=== PATIENT | male | born 1950 | race Hispanic/Latino ===

== ENCOUNTER 2020-12-15 09:54 | Emergency (ER) | payer SELFPAY ==
[2020-12-15 12:44] LABS: Absolute Lymphocytes (CBC) 0.8 K/uL (0.7-4.9); Basophils % 0.5 % (0-1.3); Hematocrit 43.4 % (39.6-49.0); Lymphocytes % 7.4 % (15.3-44.8); RBC Red Blood Cell Count 4.77 M/uL (4.33-5.43)
[2020-12-15] MEDS ORDERED: NA CHLORIDE 0.9% 1,000 ML ONE ×2 (12:50→17:19)
[2020-12-15 13:11] LABS: Urine Blood TRACE (NEG); Urine Glucose 2+ (NEG); Urine Protein 2+ (NEG); Urine Specific Gravity 1.025 (1.005-1.030); Urine pH 6.5 (5.0-7.0)
[2020-12-15 13:18] LABS: ALT/SGPT 58 U/L (12-78); AST/SGOT 26 U/L (15-37); Alkaline Phosphatase 82 U/L (45-117); BUN Blood Urea Nitrogen 8 mg/dL (7-18); Bicarbonate 27 mmol/L (21-32); Bilirubin Direct 0.2 mg/dL (0-0.2); Bilirubin Total 0.7 mg/dL (0.2-1.0); Glucose Level 256 mg/dL (74-106); Lipase 6765 U/L (73-393); Potassium 3.4 mmol/L (3.5-5.1); Protein, Total 7.7 g/dL (6.4-8.2); Sodium Level 133 mmol/L (136-145)
--- NOTE | 2020-12-15 13:32 | RAD REPORT ---
EXAM DESCRIPTION: CTAbdomen Pelvis W Contrast - 12/15/2020 1:15 pm CLINICAL HISTORY: Abdominal pain. ABD PAIN COMPARISON: No comparisons TECHNIQUE: Biphasic CT imaging of the abdomen and pelvis was performed with 100 ml non-ionic IV cont rast. All CT scans are performed using dose optimization technique as appropriate and may include automated exposure control or mA/KV adjustment according to patient size. FINDINGS: The lung bases are clear. Mild diffuse fatty liver is present. Cholelithiasis. The spleen, adrenal glands are normal. Irregular cystic appearing mass is present in the tail of the pancreas. There is mild surrounding inflammatory changes. Overall, the mass measures 25 x 22 mm. Numerous sigmoid diverticula are present in the sigm oid colon with mild surrounding inflammation. No bowel obstruction, free air, free fluid or abscess. Small bilateral fat containing inguinal hernia s. The appendix is normal. No evidence of significant lymphadenopathy. No suspicious bony findings. IMPRESSION: Cystic mass measuring 25 x 22 mm is identified in the pancreatic tail with mild surrounding inflammat ion. Neoplasia versus pseudocyst is the primary differential. MR imaging of the abdomen with contrast would be recommended for followup. Correlation with amylase and lipase levels also suggested. Diffuse fatty liver. Cholelithiasis. Sigmoid diverticulosis coli is noted. Very early acute diverticulitis is a possibility.
[2020-12-15 13:42] LABS: Blood Morphology Comment NOT SEEN (NOT SEEN); Platelet Estimate ADEQ; White Blood Cell Scan OK (OK)
[2020-12-15 13:58] LABS: Urine Bacteria <20 /HPF (NONE SEEN); Urine RBC <5 /HPF (NONE SEEN)
--- NOTE | 2020-12-15 17:31 | RAD REPORT ---
EXAM DESCRIPTION: US - Abdomen Exam Limited - 12/15/2020 2:50 pm CLINICAL HISTORY: LUQ pain Abdominal pain COMPARISON: Chest Single View dated 08/07/2020; Chest Single View dated 11/10/2019; CHEST SINGLE VIEW dated 03/18/2015; CHEST SINGLE VIEW dated 03/06/2015No comparisons FINDINGS: The gallbladder demonstrates shadowing gallstone. No pericholecystic fluid or gallbladder wall thickening. The common bile duct is mildly prominent measuring 8 mm. The liver demonstrates no findings of intrahepatic biliary dilatation. IMPRESSION: Cholelithiasis is noted. Upper limit of normal common bile duct measuring 8 mm. MRCP followup assessment could be obtained cli nically indicated.
--- NOTE | 2020-12-15 17:57 | ER ---
Nurse's Notes [facility] Name: Jose Kitchen Age: 70 yrs Sex: Male : 1950 Arrival Date: 12/15/2020 Time: 09:56 Bed 5 Private MD: Diagnosis: Cholelithiasis;Acute pancreatitis Presentation: 12/15 10:04 Coronavirus screen: Client denies travel out of the [place] in the last 14 days. At this ll1 time, the client does not indicate any symptoms associated with coronavirus-19. Ebola Screen: Patient denies travel to an Ebola-affected area in the 21 days before illness onset. Initial Sepsis Screen: Does the patient meet any 2 criteria? No. Patient's initial sepsis screen is negative. Does the patient have a suspected source of infection? Yes: Acute abdominal pain. Risk Assessment: Do you want to hurt yourself or someone else? Patient reports no desire to harm self or others. Onset of symptoms was December 14, 2020. 10:04 Method Of Arrival: Ambulatory ll1 10:04 Acuity: DHRUV 3 ll1 10:06 Chief complaint: Patient states: L sided abd pain that wraps around to L back since ll1 last night. No fever or dysuria. No N/V/D. Historical: - Allergies: 10:04 PENICILLINS; ll1 - PMHx: 10:04 Diabetes - NIDDM; Hypertension; ll1 - Immunization history:: Flu vaccine is not up to date. - Social history:: Smoking status: Patient denies any tobacco usage or history of. Screenin:34 Abuse screen: Denies threats or abuse. Denies injuries from another. Nutritional bp screening: No deficits noted. Tuberculosis screening: No symptoms or risk factors identified. Fall Risk None identified. Assessment: 12:39 General: Appears in no apparent distress. comfortable, Behavior is calm, cooperative, ss Denies fever, feeling ill, fatigue, chills. Pain: Complains of pain in anterior aspect of left lateral abdomen and posterior aspect of left lateral abdomen Pain currently is 8 out of 10 on a pain scale. Pain began last night Is continuous. Neuro: Level of Consciousness is awake, alert, obeys commands, Oriented to person, place, time, situation, Speech is normal. Cardiovascular: Capillary refill < 3 seconds is brisk in bilateral fingers Patient's skin is warm and dry. Respiratory: Airway is patent Respiratory effort is even, unlabored, Respiratory pattern is regular, symmetrical. GI: Abdomen is non-distended, Bowel sounds present X 4 quads. Abd is soft and non tender X 4 quads. Patient currently denies diarrhea, nausea, vomiting. : No signs and/or symptoms were reported regarding the genitourinary system. Denies burning with urination, inability to void, urinary frequency. EENT: Nares are clear Oral mucosa is moist. Derm: Skin is intact, is healthy with good turgor, Skin is dry, Skin is pink, warm \\T\\ dry. normal. Musculoskeletal: Circulation, motion, and sensation intact. Range of motion: intact in all extremities, Swelling absent. 13:29 Reassessment: Patient appears in no apparent distress at this time. Patient and/or ss family updated on plan of care and expected duration. Pain level reassessed. Patient is alert, oriented x 3, equal unlabored respirations, skin warm/dry/pink. 15:40 Reassessment: Patient appears in no apparent distress at this time. Patient and/or ss family updated on plan of care and expected duration. Pain level reassessed. Patient is alert, oriented x 3, equal unlabored respirations, skin warm/dry/pink. Pain "is better" patient states. 16:07 Reassessment: Patient appears in no apparent distress at this time. No changes from bp previously documented assessment. Patient and/or family updated on plan of care and expected duration. Pain level reassessed. Patient is alert, oriented x 3, equal unlabored respirations, skin warm/dry/pink. ALL CURRENT ORDERS COMPLETED. DISPO PENDING. 17:53 Reassessment: Patient appears in no apparent distress at this time. Patient and/or ss family updated on plan of care and expected duration. Pain level reassessed. Patient is alert, oriented x 3, equal unlabored respirations, skin warm/dry/pink. LONG Finnegan at bedside discussing plan of care with patient. 18:01 Reassessment: provider at bedside at this time discussing poc and potential transfer. tw2 20:42 Reassessment: report given to SAMARIA Dozier of [facility]. mg2 Vital Signs: 10:04 BP 184 / 97; Pulse 76; Resp 17; Temp 97.7; Pulse Ox 95% ; Weight 72.57 kg; Height 5 ft. ll1 2 in. (157.48 cm); Pain 7/10; 13:00 BP 156 / 82; Pulse 70; Resp 17; Pulse Ox 100% ; bp 14:00 BP 146 / 83; Pulse 67; Resp 17; Pulse Ox 100% ; bp 16:00 BP 164 / 88; Pulse 67; Resp 17; Pulse Ox 96% ; bp 17:58 BP 147 / 69; Pulse 74; Resp 18; Pulse Ox 98% ; Pain 4/10; ss 19:06 BP 128 / 62; Pulse 80; Resp 18; Pulse Ox 100% on R/A; mg2 21:00 BP 142 / 72; Pulse 75; Resp 18; Pulse Ox 98% ; wh 10:04 Body Mass Index 29.26 (72.57 kg, 157.48 cm) ll1 ED Course: 09:56 Patient arrived in ED. mr 10:01 Arm band placed on. ll1 10:02 Patient notified of wait time. ll1 10:06 Triage completed. ll1 12:01 Kain Pitt NP is PHCP. pm1 12:01 Jeremy Ritchie MD is Attending Physician. pm1 12:34 Frederick Meyer, SAMARIA is Primary Nurse. bp 12:34 Patient has correct armband on for positive identification. Bed in low position. Call bp light in reach. Side rails up X2. 12:34 Inserted saline lock: 20 gauge in right forearm, using aseptic technique. Blood bp collected. 13:15 CT Abd/Pelvis - IV Contrast Only In Process Unspecified. EDMS 14:50 US Abdomen Limited In Process Unspecified. EDMS 16:45 Lipase Sent. bp 16:45 Hepatic Function Sent. bp 16:45 CBC with Diff Sent. bp 16:45 Basic Metabolic Panel Sent. bp 16:45 Urine Microscopic Only Sent. bp 16:45 Add On-Lab Sent. bp 17:57 No provider procedures requiring assistance completed. ss 18:06 initiated transfer to [facility]. bd 18:55 contacted by [facility] transfer center, no capacity at any of the [facility]. bd 19:05 Patient transferred, IV remains in place. mg2 19:10 Primary Nurse role handed off by Frederick Meyer, SAMARIA mw2 19:11 Ankush Palencia, RN is Primary Nurse. mg2 19:13 initiated a transfer with Sara Blackman from [facility]. mw2 19:35 doc to doc with the GI specialist from [facility]. mw2 20:07 administrative approval given by Sara Blackman/ patient has been accepted to [address] [place] [address] 2438/ Dr. Guevara has accepted the patient in transfer/ report to be called to [phone]. Administered Medications: 12:38 Drug: NS 0.9% 1000 ml Route: IV; Rate: 1000 ml; Site: right wrist; ss 19:12 Follow up: IV Status: Completed infusion mg2 17:11 Drug: NS 0.9% 1000 ml Route: IV; Rate: 125 ml/hr; Site: right antecubital; ss 17:57 Follow up: IV Status: Infusion continued upon transfer ss 18:05 Drug: Flagyl 500 mg Volume: 100 ml; Route: IVPB; Rate: 200 ml/hr; Infused Over: 30 ss mins; Site: right antecubital; 19:11 Follow up: Response: No adverse reaction; IV Status: Completed infusion mg2 18:05 Drug: Zofran (Ondansetron) 4 mg Route: IVP; Site: right antecubital; tw2 19:11 Follow up: Response: No adverse reaction mg2 18:08 Drug: morphine 4 mg {Note: RASS 0.} Route: IVP; Site: right antecubital; tw2 19:11 Follow up: Response: No adverse reaction mg2 19:11 Drug: LevaQUIN 500 mg Volume: 100 ml; Route: IVPB; Infused Over: 60 mins; Site: right mg2 forearm; 19:51 Follow up: Response: No adverse reaction; IV Status: Completed infusion mg2 Outcome: 17:56 ER care complete, transfer ordered by . pm1 17:57 Condition: good ss 17:57 Instructed on the need for transfer. 21:13 Transferred by ground EMS to [facility], Transfer form completed. X-rays sent w/ patient. Note: Report given to [facility] 21:13 Condition: stable 21:13 Instructed on the need for transfer. 21:14 Patient left the ED. Signatures: Dispatcher [employer] EDMS Alexandria Xiao, Lisandra Murray, RN RN ss Kain Pitt, FRENCH FOLDING MACHINE OPERATOR FRENCH FOLDING MACHINE OPERATOR pm1 Nilda Perla, RN RN tw2 Ethan Hastings, RN RN Frederick Meyer RN RN Dominick Haddad 2 Ankush Palencia, RN RN mg2 Rosemary Dunbar RN RN ll1 Corrections: (The following items were deleted from the chart) 11:52 11:52 Patient notified of wait time ll1 ll1
--- NOTE | 2020-12-15 17:57 | EDPHYS ---
Physician Documentation [facility] Name: Jose Kitchen Age: 70 yrs Sex: Male : 1950 Arrival Date: 12/15/2020 Time: 09:56 Bed 5 Private MD: ED Physician Jeremy Ritchie HPI: 12/15 12:16 This 70 yrs old Male presents to ER via Ambulatory with complaints of pm1 Abdominal Pain. 12:16 The patient presents with abdominal pain. Onset: The symptoms/episode began/occurred pm1 last night. The symptoms radiate to left back. Associated signs and symptoms: Pertinent negatives: nausea, vomiting, and diarrhea, chest pain, dysuria, fever, shortness of breath. Modifying factors: The symptoms are alleviated by nothing, the symptoms are aggravated by nothing. Severity of pain: in the emergency department the pain is actually worse is a 8 / 10. The patient has not experienced similar symptoms in the past. 12:16 The patient has not recently seen a physician, Primary care provider is Aleksandra Felton NP. Historical: - Allergies: 10:04 PENICILLINS; ll1 - PMHx: 10:04 Diabetes - NIDDM; Hypertension; ll1 - Immunization history:: Flu vaccine is not up to date. - Social history:: Smoking status: Patient denies any tobacco usage or history of. ROS: 12:16 Constitutional: Negative for fever, chills, and weight loss, Cardiovascular: Negative pm1 for chest pain, palpitations, and edema, Respiratory: Negative for shortness of breath, cough, wheezing, and pleuritic chest pain. 12:16 Back: Negative for injury and pain, MS/Extremity: Negative for injury and deformity, Skin: Negative for injury, rash, and discoloration, Neuro: Negative for headache, weakness, numbness, tingling, and seizure. 12:16 Abdomen/GI: Positive for abdominal pain, Negative for nausea, vomiting, and diarrhea. Exam: 12:16 Constitutional: This is a well developed, well nourished patient who is awake, alert, pm1 and in no acute distress. Head/Face: Normocephalic, atraumatic. 12:16 Back: No spinal tenderness. No costovertebral tenderness. Full range of motion. Skin: Warm, dry with normal turgor. Normal color with no rashes, no lesions, and no evidence of cellulitis. MS/ Extremity: Pulses equal, no cyanosis. Neurovascular intact. Full, normal range of motion. 12:16 Cardiovascular: Exam negative for acute changes, Rate: normal, Rhythm: regular, Pulses: no pulse deficits are appreciated. 12:16 Respiratory: Exam negative for acute changes, respiratory distress, shortness of breath. 12:16 Abdomen/GI: Inspection: obese Palpation: soft, in all quadrants, mild abdominal tenderness, in the epigastric area and left upper quadrant, rebound tenderness, is not appreciated. 12:16 Neuro: Exam negative for acute changes, Orientation: is normal, Mentation: is normal, Motor: is normal, moves all fours. Vital Signs: 10:04 BP 184 / 97; Pulse 76; Resp 17; Temp 97.7; Pulse Ox 95% ; Weight 72.57 kg; Height 5 ft. ll1 2 in. (157.48 cm); Pain 7/10; 13:00 BP 156 / 82; Pulse 70; Resp 17; Pulse Ox 100% ; bp 14:00 BP 146 / 83; Pulse 67; Resp 17; Pulse Ox 100% ; bp 16:00 BP 164 / 88; Pulse 67; Resp 17; Pulse Ox 96% ; bp 17:58 BP 147 / 69; Pulse 74; Resp 18; Pulse Ox 98% ; Pain 4/10; ss 19:06 BP 128 / 62; Pulse 80; Resp 18; Pulse Ox 100% on R/A; mg2 21:00 BP 142 / 72; Pulse 75; Resp 18; Pulse Ox 98% ; wh 10:04 Body Mass Index 29.26 (72.57 kg, 157.48 cm) ll1 MDM: 12:03 Patient medically screened. [facility] 12:10 Data reviewed: vital signs. Data interpreted: Pulse oximetry: on room air is 95 %. pm1 Interpretation: normal. 12:10 ED course: Patient refused pain medications even though he reports pain is 8/10. pm1 Informed him that we will reassess him and to please let us know if he changes his mind. We would be happy to address his pain. 13:38 Counseling: I had a detailed discussion with the patient and/or guardian regarding: the pm1 historical points, exam findings, and any diagnostic results supporting the discharge/admit diagnosis, lab results, radiology results. 16:56 ED course: Pending ultrasound results. Patient reports two beers and two shots of pm1 whiskey per day. 17:40 ED course: No prior history of gallstones or pancreatitis. pm1 17:55 Counseling: I had a detailed discussion with the patient and/or guardian regarding: the pm1 historical points, exam findings, and any diagnostic results supporting the discharge/admit diagnosis, lab results, radiology results, the need to transfer to another facility, [facility] does not immediately have the required specialist, No GI Coverage. 17:55 ED course: Patient continues to refuse pain medications in the ER. pm1 18:01 ED course: Patient would like pain medications now. pm1 18:59 ED course: Patient's preference for transfer, [facility] at capacity. Patient is pm1 willing to go to any facility that has availability. 12/15 12:10 Order name: Basic Metabolic Panel pm1 12/15 12:10 Order name: CBC with Diff pm1 12/15 12:10 Order name: Hepatic Function 1 12/15 12:10 Order name: Lipase pm1 12/15 12:10 Order name: Urine Microscopic Only pm1 12/15 12:11 Order name: Basic Metabolic Panel; Complete Time: 13:37 EDMS 12/15 12:11 Order name: CBC with Automated Diff; Complete Time: 13:43 EDMS 12/15 12:11 Order name: Liver (Hepatic) Function; Complete Time: 13:37 EDMS 12/15 12:11 Order name: Lipase; Complete Time: 13:37 EDMS 12/15 12:11 Order name: Urine Microscopic Only; Complete Time: 14:21 EDMS 12/15 12:48 Order name: CBC Smear Scan; Complete Time: 13:43 EDMS 12/15 12:49 Order name: Urine Dipstick--Ancillary (enter results) 12/15 13:31 Order name: CREATININE WHOLE BLOOD; Complete Time: 13:37 EDMS 12/15 13:43 Order name: Add On-Lab 12/15 12:10 Order name: IV Saline Lock; Complete Time: 12:38 pm1 12/15 12:10 Order name: Labs collected and sent; Complete Time: 12:38 pm1 12/15 12:10 Order name: Urine Dipstick-Ancillary (obtain specimen); Complete Time: 12:48 pm1 12/15 12:10 Order name: CT Abd/Pelvis - IV Contrast Only; Complete Time: 13:37 pm1 12/15 13:42 Order name: US Abdomen Limited; Complete Time: 17:40 pm1 12/15 13:55 Order name: Alcohol Serum/Plasma; Complete Time: 14:21 EDMS 12/15 16:57 Order name: COVID-19 : Document "Date of Symptom Onset" if Symptomatic. ss 12/15 16:59 Order name: NPO; Complete Time: 17:12 pm1 12/15 18:19 Order name: SARS-COV-2 RT PCR; Complete Time: 18:27 EDMS Administered Medications: 12:38 Drug: NS 0.9% 1000 ml Route: IV; Rate: 1000 ml; Site: right wrist; ss 19:12 Follow up: IV Status: Completed infusion mg2 17:11 Drug: NS 0.9% 1000 ml Route: IV; Rate: 125 ml/hr; Site: right antecubital; ss 17:57 Follow up: IV Status: Infusion continued upon transfer ss 18:05 Drug: Flagyl 500 mg Volume: 100 ml; Route: IVPB; Rate: 200 ml/hr; Infused Over: 30 ss mins; Site: right antecubital; 19:11 Follow up: Response: No adverse reaction; IV Status: Completed infusion mg2 18:05 Drug: Zofran (Ondansetron) 4 mg Route: IVP; Site: right antecubital; tw2 19:11 Follow up: Response: No adverse reaction mg2 18:08 Drug: morphine 4 mg {Note: RASS 0.} Route: IVP; Site: right antecubital; tw2 19:11 Follow up: Response: No adverse reaction mg2 19:11 Drug: LevaQUIN 500 mg Volume: 100 ml; Route: IVPB; Infused Over: 60 mins; Site: right mg2 forearm; 19:51 Follow up: Response: No adverse reaction; IV Status: Completed infusion mg2 Disposition: 12/16 06:43 Co-signature as Attending Physician, Jeremy Ritchie MD I agree with the assessment and yohan plan of care. Disposition: 12/15/20 17:56 Transfer ordered to [facility]. Diagnosis are Acute pancreatitis, Cholelithiasis. - Reason for transfer: Specialty. - Accepting physician is Ismael. - Condition is Stable. - Problem is new. - Symptoms have improved. Signatures: Dispatcher [employer] EDOK Jeremy Ritchie MD MD cha Smirch, Shelby, RN RN ss Kain Pitt, LONG TEAM LEADER pm1 Nilda Perla, RN RN tw2 Ethan Hastings, SAMARIA MERA Ankush Palencia, RN RN [facility] Rosemary Dunbar RN RN ll1 Corrections: (The following items were deleted from the chart) 03 17:37 16:58 CORONAVIRUS ordered. EDOK EDMS 19:58 17:56 12/15/2020 17:56 Transfer ordered to [facility]. Diagnosis is Acute pm1 pancreatitisCholelithiasis. Reason for transfer: Higher level of care. Accepting physician is [facility]. Condition is Stable. Problem is new. Symptoms have improved. pm1 21:14 19:58 12/15/2020 17:56 Transfer ordered to [facility]. Diagnosis is Acute pancreatitisCholelithiasis. Reason for transfer: Specialty. Accepting physician is Ismael. Condition is Stable. Problem is new. Symptoms have improved. pm1
[2020-12-15] MEDS ORDERED: Levofloxacin500mg IV 500 MG/100 ML BAG IV ONE (18:19)
[2020-12-15] MEDS ORDERED: METRONIDAZOLE 500mg IVPB 500 MG/100 ML BAG IV ONE (18:19)
[2020-12-15] MEDS ORDERED: MORPHINE 4 MG/ML SYR ONE (18:22)
[2020-12-15] MEDS ORDERED: ONDANSETRON 4 MG/2 ML VIAL ONE (18:22)
[2020-12-15 21:20] VITALS: TEMP 97.7
[2020-12-15 21:27] VITALS: BP 142/72; O2SAT 98
== END 2020-12-15 21:14 | disposition short-term general hospital (02) ==
LOC: ER 09:54
DX: K85.90 Acute pancreatitis without necrosis or infection, unspecified (principal); K80.20 Calculus of gallbladder without cholecystitis without obstruction; Z20.822 Contact with and (suspected) exposure to COVID-19; I10 Essential (primary) hypertension; Z88.0 Allergy status to penicillin
CPT/HCPCS: 36415; 74177; 76705; 80048; 80076; 80320; 81003; 81015; 82565; 83690; 85025; 99285; J2405; J7030; Q9967; U0003

== ENCOUNTER 2021-02-06 02:18 | Emergency (ER) | payer SELFPAY ==
--- OUTSIDE RECORDS SUMMARY | 2021-02-06 02:22 | XMS REPORT | Continuity of Care Document ---
:1950 Author Organization [facility] t Address [address] [place] [address] Care Team Providers Name Role Phone [place] FUENTES Attending Clinician JESÚS Attending Clinician Unavailable NESS HWANG Admitting Clinician Unavailable Problems This patient has no known problems. Allergies, Adverse Reactions, Alerts This patient has no known allergies or adverse reactions. Medications This patient has no known medications. Procedures This patient has no known procedures. Encounters Start End Encounter Admission Attending Care Care Encounter Source Date/Time Date/Time Type Type Clinicians Facility Department ID 2021-01-05 2021-01-05 Office JOSEY Niño [id number] 09:18:57 09:48:57 Visit Salmaan AMBULATOR [id number] Y [id number] Results Test Description Test Time Test Comments Results Result [facility] e Comments FINE NEEDLE 2020-12-25 Medical Cytology Report ASPIRATION BY 15:36:00 CLINICIAN Case: [id number] Authorizing Provider: Viry Alexander Collected: 12/19/2020 11:25 AM MD Lucille Ordering Location: [address] Received: 12/21/2020 02:50 PM Service Pathologist: Yelena France MD Specimen: Pancreas, pancreatic cyst wall PANCREAS, CYST WALL, FNA BY CLINICIAN (CYTOSPINS AND CELL BLOCK OF ASPIRATE): - A STRIP OF COLUMNAR EPITHELIUM WITH ATYPIA, FAVOR LOW GRADE DYSPLASIA (SEE COMMENT) Signing Pathologist Direct Phone Line: [phone] y signed by Yelena France MD on 12/25/2020 at 3:36 PMThe material available for review is scant. The cell block shows one strip of columnar epithelium with atypia and multiple strips with gastric foveolar type of lining. Some proteinaceous debris is seen in the cytospins. Mucicarmine stains some material suggestive of extracellular mucin. The overall features may be suggestive of mucinous neoplasm in an appropriate clinical setting. Clinical and radiologic correlation is recommended.93650, 83162; 04232Eekszkordj cyst wall FNA PANCREAS, CYST WALL, FNAReceived 15 ml cytorich red fixative sample; prepared cell block(A2) and 4 cytospins Performed. The interpretation of this case included the use of immunohistochemistry or special stains.mucicarmineControl Slides Examined: In-house known positive controls were evaluated along with the test tissue. These control slides run alongside of the patients sample show appropriate staining. Internal positive and negative controls when available are evaluated Immunohistochemistry technical testing was performed at [facility], Pathology Laboratory where it was developed and its performance characteristics were determined. It has not been cleared or approved by the U.S. Food and Drug Administration. The FDA has determined that such clearance or approval is not necessary. The test is used for clinical purposes. It should not be regarded as investigational or for research. This laboratory is certified under the Clinical Laboratory Improvement Amendments of 1988 (CLIA-88) as qualified to perform high complexity clinical laboratory testing.[facility], Department of Pathology, [address] [place] [address], [facility], [facility] of [facility], [address] [place] [address], [facility]Robert [facility], Department of Pathology, [address] [place] [address], FINE NEEDLE ASPIRATE (FNA) REQUEST 2020-12-21 16:01:00 Test Item Value Reference Range Interpretation Comme nts CYTOLOGY RESULT POINTER (BEAKER) (test code = 2629) See Separate Re port POCT-GLUCOSE [id number] 08:14:00 Test Item Value Reference Range Interpretation Comments POC-GLUCOSE METER 174 mg/dL 70-110 H : TESTED A T [facility] 6720 (BEAKER) (test code = JEANETH Martinez [place], 1538) [address]: Financial Developer/Techni prabha ID = [id number] for JIMMY BLAKE COMPREHENSIVE METABOLIC [id number] 03:19:00 Test Item Value Reference Range Interpretation Comments TOTAL PROTEIN 6.9 gm/dL 6.0-8.3 (BEAKER) (test code = 770) ALBUMIN (BEAKER) 4.0 g/dL 3.5-5.0 (test code = 1145) ALKALINE PHOSPHATASE 50 U/L 40-150 (BEAKER) (test code = 346) BILIRUBIN TOTAL 0.6 mg/dL 0.2-1.2 (BEAKER) (test code = 377) SODIUM (BEAKER) (test 138 meq/L 136-145 code = 381) POTASSIUM (BEAKER) 3.6 meq/L 3.5-5.1 (test code = 379) CHLORIDE (BEAKER) 104 meq/L 98-107 (test code = 382) CO2 (BEAKER) (test 24 meq/L 22-29 code = 355) BLOOD UREA NITROGEN 7 mg/dL 7-21 (BEAKER) (test code = 354) CREATININE (BEAKER) 0.91 mg/dL 0.57-1.25 (test code = 358) GLUCOSE RANDOM 200 mg/dL 70-105 H (BEAKER) (test code = 652) CALCIUM (BEAKER) 9.1 mg/dL 8.4-10.2 (test code = 697) AST (SGOT) (BEAKER) 81 U/L 5-34 H (test code = 353) ALT (SGPT) (BEAKER) 79 U/L 6-55 H (test code = 347) EGFR (BEAKER) (test 83 mL/min/1.73 ESTIMA TIBURCIO GFR IS code = 1092) sq m NOT ACCURATE CREATININE CLEARANCE IN PREDICTING GLOMERULAR FILTRATION RATE . ESTIMATED GFR I S NOT APPLICABLE FOR DIALYSIS PATIEN TS. Financial Developer ID - RAKESH MPOCT-GLUCOSE [id number] 22:13:00 Test Item Value Reference Range Interpretation Comments POC-GLUCOSE METER 259 mg/dL 70-110 H : TESTED A T [facility] 6720 (BEAKER) (test code = [facility], 153) [address]: Financial Developer/Techni prabha ID = [id number] for EV KARINE RIDDLE POCT-GLUCOSE [id number] 17:23:00 Test Item Value Reference Range Interpretation Comments POC-GLUCOSE METER 267 mg/dL 70-110 H : TESTED A T [facility] 6720 ([facility]) (test code = [facility], 153) [address]: Financial Developer/Techni prabha ID = [id number] for IB RAHIM, SERKALEM POCT-GLUCOSE [id number] 12:32:00 Test Item Value Reference Range Interpretation Comments POC-GLUCOSE METER 201 mg/dL 70-110 H : Notified RN/MD: ([facility]) (test code = TESTED AT [place] [address] 153) [facility], [address]: Financial Developer/Techni prabha ID = [id number] for Si mmons, Jeanine POCT-GLUCOSE [id number] 07:47:00 Test Item Value Reference Range Interpretation Comments POC-GLUCOSE METER 210 mg/dL 70-110 H : TESTED A [facility] 6720 ([facility]) (test code = [facility], 153) [address]: Financial Developer/Techni prabha ID = [id number] for IB RAHIM, SERKALEM COMPREHENSIVE METABOLIC [id number] 04:56:00 Test Item Value Reference Range Interpretation Comments TOTAL PROTEIN 6.5 gm/dL 6.0-8.3 Specimen moder ately (BEAKER) (test code = hemoly zed 770) ALBUMIN (BEAKER) 3.6 g/dL 3.5-5.0 Specimen mo derately (test code = 1145) hemolyzed ALKALINE PHOSPHATASE 50 U/L 40-150 (BEAKER) (test code = 346) BILIRUBIN TOTAL 0.5 mg/dL 0.2-1.2 Specimen mod erately (BEAKER) (test code = hemoly zed 377) SODIUM (BEAKER) (test 138 meq/L 136-145 code = 381) POTASSIUM (BEAKER) 4.0 meq/L 3.5-5.1 Specimen moderately (test code = 379) hemolyzed CHLORIDE (BEAKER) 104 meq/L 98-107 (test code = 382) CO2 (BEAKER) (test 24 meq/L 22-29 code = 355) BLOOD UREA NITROGEN 9 mg/dL 7-21 (BEAKER) (test code = 354) CREATININE (BEAKER) 0.88 mg/dL 0.57-1.25 Specimen moderately (test code = 358) hemolyzed GLUCOSE RANDOM 176 mg/dL 70-105 H (BEAKER) (test code = 652) CALCIUM (BEAKER) 8.8 mg/dL 8.4-10.2 (test code = 697) AST (SGOT) (BEAKER) 71 U/L 5-34 H Specimen moderately (test code = 353) hemolyzed ALT (SGPT) (BEAKER) 50 U/L 6-55 Specimen moderately (test code = 347) hemolyzed EGFR (BEAKER) (test 86 mL/min/1.73 ESTIMA TIBURCIO GFR IS code = 1092) sq m NOT ACCURATE CREATININE CLEARANCE IN PREDICTING GLOMERULAR FILTRATION RATE . ESTIMATED GFR I S NOT APPLICABLE FOR DIALYSIS PATIEN TS. Financial Developer ID - DBPOCT-GLUCOSE [id number] 22:00:00 Test Item Value Reference Range Interpretation Comments POC-GLUCOSE METER 159 mg/dL 70-110 H : TESTED A T [facility] 6720 ([facility]) (test code = [facility], 1538) [address]: Financial Developer/Techni prabha ID = [id number] for FAHEEM POOLE POCT-GLUCOSE [id number] 17:49:00 Test Item Value Reference Range Interpretation Comments POC-GLUCOSE METER 282 mg/dL 70-110 H : TESTED A T [facility] 6720 ([employer]) (test code = [facility], 1538) [address]: Financial Developer/Techni prabha ID = [id number] for Ra mirez, Kanwal POCT-GLUCOSE [id number] 11:55:00 Test Item Value Reference Range Interpretation Comments POC-GLUCOSE METER 326 mg/dL 70-110 H : TESTED A T [facility] 6720 ([employer]) (test code = [facility], 153) [address]: Financial Developer/Techni prabha ID = [id number] for Ra mirez, Kanwal POCT-GLUCOSE [id number] 08:51:00 Test Item Value Reference Range Interpretation Comments POC-GLUCOSE METER 173 mg/dL 70-110 H : TESTED A T [facility] 6720 ([facility]) (test code = [facility] Michelle [facility], 153) [address]: Financial Developer/Techni prabha ID = [id number] for Kanwal Hickman POCT-GLUCOSE [id number] 23:50:00 Test Item Value Reference Range Interpretation Comments POC-GLUCOSE METER 346 mg/dL 70-110 H : TESTED A T [facility] 6720 ([facility]) (test code = [facility] Michelle [facility], 1538) [address]: Financial Developer/Techni prabha ID = [id number] for KARINE DOW POCT-GLUCOSE [id number] 17:45:00 Test Item Value Reference Range Interpretation Comments POC-GLUCOSE METER 208 mg/dL 70-110 H : Notified RN/MD: ([facility]) (test code = TESTED AT [facility] 6720 1538) [facility], [address]: Financial Developer/Techni prabha ID = [id number] for Nalini Bonilla MR, ABDOMEN, [id number] 17:00:00Unlisted Reason for Exam - Click Yes and Enter Reason Below->YesUnlisted Reason for Exam->acute pancreatitis, rule out choledocholithiasis, evaluate pancreatic tail cystDeos the patient have an implanted electronic device?->No [facility] : 1950 Sex: MFINAL REPORT TECHNIQUE: MRI of the abdomen and MRCP WITHOUT and WITH intravenous contrast. 3-D volume reconstructions were obtained to evaluate the biliary ductal system. INDICATION: 70-year-old man with epigastric pain and acute pancreatitis. COMPARISON: None. FINDINGS: LOWER THORAX: Unremarkable. LIVER: Severe decrease in signal intensity of the liver onopposed phase imaging, consistent with hepatic steatosis. Focal fatty sparing in segment IVB adjacent to the gallbladder fossa. BILIARY: Subcentimeter stones in the otherwise unremarkable gallbladder. Common bile duct is borderline prominent and measures up to 0.8 cm in diameter without filling defect. No intrahepatic biliary ductal prominence.SPLEEN: No splenomegaly.PANCREAS: Pancreas enhances homogeneously. Mild edema around the pancreatic tail extends along the left anterior renal fascia. 2.2 x 3x 3.3 cm cystic lesion in the pancreatic tail contains thin internal septations and likely communicates with the pancreatic duct; no mural nodules or wall thickening in the cystic lesion. ADRENALS: No adrenal nodule.KIDNEYS/URETERS: No hydronephrosis or mass. 1.4 x 1.5 cm cyst in the left upper pole. Subcentimeter cyst in the right interpolar region. PERITONEUM/RETROPERITONEUM: No free fluid.LYMPH NODES: No lymphadenopathy.VESSELS: Unremarkable. GI TRACT: Susceptibility artifact in the anterior abdomen adjacent to the distal gastric body. No distention or wall thickening. Normal appendix. BONES ANDSOFT TISSUES: Unremarkable. IMPRESSION:Mild edema around the pancreatic tail, suspicious for acute in terstitial edematous pancreatitis. 3.3 cm septated cystic lesion in the pancreatic tail. Differential considerations include side branch intraductal papillary mucinous neoplasm (IPMN) and pseudocyst. Endoscopic ultrasound/fine- needle aspiration may be obtained for further evaluation. Alternatively, follow- up abdomen MRI/MRCP may be obtained in 6 months for reassessment. Nonspecific borderline prominence of the common bile duct without choledocholithiasis. Cholelithiasis. Severe hepatic steatosis. Signed: Jared Freeman MDReport Verified Date/Time: 12/17/2020 17:00:30 POCT-GLUCOSE [id number] 11:57:00 Test Item Value Reference Range Interpretation Comments POC-GLUCOSE METER 270 mg/dL 70-110 H : Notified RN/: ([facility]) (test code = TESTED AT [facility] 6720 1538) [facility], [address]: Financial Developer/Techni prabha ID = [id number] for Nalini Bonilla BASIC METABOLIC [id number] 06:53:00 Test Item Value Reference Range Interpretation Comments SODIUM (BEAKER) 139 meq/L 136-145 (test code = 381) POTASSIUM (BEAKER) 3.8 meq/L 3.5-5.1 (test code = 379) CHLORIDE (BEAKER) 105 meq/L 98-107 (test code = 382) CO2 (BEAKER) (test 27 meq/L 22-29 code = 355) BLOOD UREA NITROGEN 6 mg/dL 7-21 L (BEAKER) (test code = 354) CREATININE (BEAKER) 0.83 mg/dL 0.57-1.25 (test code = 358) GLUCOSE RANDOM 154 mg/dL 70-105 H (BEAKER) (test code = 652) CALCIUM (BEAKER) 8.3 mg/dL 8.4-10.2 L (test code = 697) EGFR (BEAKER) (test 92 mL/min/1.73 ESTIMA TIBURCIO GFR IS code = 1092) sq m NOT ACCURATE CREATININE CLEARANCE IN PREDICTING GLOMERULAR FILTRATION RATE . ESTIMATED GFR I S NOT APPLICABLE FOR DIALYSIS PATIEN TS. Financial Developer ID - [id number] 06:53:00 Test Item Value Reference Range Interpretation Comments MAGNESIUM (BEAKER) (test code = 1.8 mg/dL 1.6-2.6 627) Financial Developer ID - [id number] 06:53:00 Test Item Value Reference Range Interpretation Comments PHOSPHORUS (BEAKER) (test code = 3.0 mg/dL 2.3-4.7 604) Financial Developer ID - BSHEPATIC FUNCTION [id number] 06:53:00 Test Item Value Reference Range Interpretation Comments TOTAL PROTEIN (BEAKER) (test code = 6.0 gm/dL 6.0-8.3 770) ALBUMIN (BEAKER) (test code = 1145) 3.5 g/dL 3.5-5.0 BILIRUBIN TOTAL (BEAKER) (test code 0.6 mg/dL 0.2-1.2 = 377) BILIRUBIN DIRECT (BEAKER) (test 0.3 mg/dL 0.1-0.5 code = 706) ALKALINE PHOSPHATASE (BEAKER) (test 43 U/L 40-150 code = 346) AST (SGOT) (BEAKER) (test code = 18 U/L 5-34 353) ALT (SGPT) (BEAKER) (test code = 24 U/L 6-55 347) Financial Developer ID - BSCBC W/PLT COUNT & AUTO [id number] 06:27:00 Test Item Value Reference Range Interpretation Comments WHITE BLOOD CELL COUNT (BEAKER) 4.9 K/ L 3.5-10.5 (test code = 775) RED BLOOD CELL COUNT (BEAKER) 4.40 M/ L 4.63-6.08 L (test code = 761) HEMOGLOBIN (BEAKER) (test code = 14.0 GM/DL 13.7-17.5 410) HEMATOCRIT (BEAKER) (test code = 39.4 % 40.1-51.0 L 411) MEAN CORPUSCULAR VOLUME (BEAKER) 89.5 fL 79.0-92.2 (test code = 753) MEAN CORPUSCULAR HEMOGLOBIN 31.8 pg 25.7-32.2 (BEAKER) (test code = 751) MEAN CORPUSCULAR HEMOGLOBIN CONC 35.5 GM/DL 32.3-36.5 (BEAKER) (test code = 752) RED CELL DISTRIBUTION WIDTH 11.6 % 11.6-14.4 (BEAKER) (test code = 412) PLATELET COUNT (BEAKER) (test 163 K/CU MM 150-450 code = 756) MEAN PLATELET VOLUME (BEAKER) 10.2 fL 9.4-12.4 (test code = 754) NUCLEATED RED BLOOD CELLS 0 /100 WBC 0-0 (BEAKER) (test code = 413) NEUTROPHILS RELATIVE PERCENT 66 % (BEAKER) (test code = 429) LYMPHOCYTES RELATIVE PERCENT 23 % (BEAKER) (test code = 430) MONOCYTES RELATIVE PERCENT 8 % (BEAKER) (test code = 431) EOSINOPHILS RELATIVE PERCENT 2 % (BEAKER) (test code = 432) BASOPHILS RELATIVE PERCENT 0 % (BEAKER) (test code = 437) NEUTROPHILS ABSOLUTE COUNT 3.24 K/ L 1.78-5.38 (BEAKER) (test code = 670) LYMPHOCYTES ABSOLUTE COUNT 1.13 K/ L 1.32-3.57 L (BEAKER) (test code = 414) MONOCYTES ABSOLUTE COUNT (BEAKER) 0.40 K/ L 0.30-0.82 (test code = 415) EOSINOPHILS ABSOLUTE COUNT 0.11 K/ L 0.04-0.54 (AKER) (test code = 416) BASOPHILS ABSOLUTE COUNT ([facility]) 0.02 K/ L 0.01-0.08 (test code = 417) IMMATURE GRANULOCYTES-RELATIVE 0 % 0-1 PERCENT ([facility]) (test code = 2801) POCT-GLUCOSE [id number] 21:40:00 Test Item Value Reference Range Interpretation Comments POC-GLUCOSE METER 167 mg/dL 70-110 H : TESTED A T [facility] 6720 ([facility]) (test code = [facility], 1538) [address]: Financial Developer/Techni prabha ID = [id number] for EV ANS, KARINE POCT-GLUCOSE [id number] 17:25:00 Test Item Value Reference Range Interpretation Comments POC-GLUCOSE METER 170 mg/dL 70-110 H : TESTED A T [facility] 6720 ([facility]) (test code = [facility], 1538) [address]: Financial Developer/Techni prabha ID = [id number] for Co neil, Nalini POCT-GLUCOSE [id number] 11:43:00 Test Item Value Reference Range Interpretation Comments POC-GLUCOSE METER 194 mg/dL 70-110 H : Notified RN/MD: ([facility]) (test code = TESTED AT [place] [address] 1538) [facility], [address]: Financial Developer/Techni prabha ID = [id number] for Co neil, Nalini SARS-COV2/RT-PCR ([facility])2020-12-16 10:31:00 Test Item Value Reference Range Interpretation Comments SARS-COV2/RT-PCR (test Negative Not Detected, Negative, code = 4932231) See external report for linked test SARS-COV-2 PERFORMING LAB [facility] KERA (test code = 0321837) Negative result for this test determines that SARS-CoV-2 RNA was not present in the specimen above the Limit of Detection (LOD). However, Negative results do not preclude SARS-CoV-2 infection and should not be used as the sole basis for treatment or patient management decisions. Negative results mustbe combined with clinical observations, patient history, and epidemiological information. A false negative result may occur if a specimen is improperly collected, transported or handled. A false negative result should be considered if patient's recent exposures or clinical presentation indicate that COVID-19 (SARS-CoV-2) is likely and diagnostic tests for other causes of illness are negative. Re-testing should be considered in cases of suspected false negatives.The limit of detection for this assay is 800 copies/mL.This SARS CoV-2 test is a real-time RT-PCR test intended for the qualitative detection of nucleic acid from SARS-CoV-2 in a nasopharyngeal swab specimen collected from individuals susp ected of COVID-19 by their healthcare provider.This test has not been Food and Drug Administration (FDA) cleared or approved. This is a modified version of an approved Emergency Use Authorization (EUA) and is in the process of review by the FDA. Once authorized by the FDA, the issued EUA will be effective until the declaration that circumstances exist justifying the authorization of the emergency use of in vitro diagnostic tests for detection and/or diagnosis of COVID-19 is terminated under Section 564(b)(2) of the Act or the EUA is revoked under Section 564(g) of the Act.Fact Sheet for Healthcare Providers:https://www.[employer]/sites/default/files/product/documents/Fact_Shee z_YN_Gbnsobglj_Vjen_MBRM-YuC-1.pdfFact Sheet for Healthcare Patients:https://www.[employer]/sites/default/files/product/ documents/Lbvm_Ysxcl_Aohrobpt_Kpme_ISSC-XwG-5.pdfPerforming Laboratory:[place] [address], [place] [address]LPULEGXYJK A1C 2020-12-16 08:19:00 Test Item Value Reference Range Interpretation Comments HEMOGLOBIN A1C ([facility]) (test code = 8.3 % 4.3-6.1 H 368) POCT-GLUCOSE [id number] 07:56:00 Test Item Value Reference Range Interpretation Comments POC-GLUCOSE METER 178 mg/dL 70-110 H : Notified RN/MD: ([facility]) (test code = TESTED AT [facility] 6720 1538) [facility], [address]: Financial Developer/Techni prabha ID = [id number] for Nalini Bonilla LACTATE DEHYDROGENASE ([facility])2020-12-16 04:24:00 Test Item Value Reference Range Interpretation Comments LACTATE DEHYDROGENASE 283 U/L 125-220 H Specim en slightly (BEAKER) (test code = hemoly zed 635) Financial Developer ID - [id number] 04:23:00 Test Item Value Reference Range Interpretation Comments MAGNESIUM (BEAKER) 1.4 mg/dL 1.6-2.6 L Specimen slightly (test code = 627) hemolyzed Financial Developer ID - [id number] 04:23:00 Test Item Value Reference Range Interpretation Comments PHOSPHORUS (BEAKER) 2.4 mg/dL 2.3-4.7 Specimen slightly (test code = 604) hemolyzed Financial Developer ID - ADMINCOMPREHENSIVE METABOLIC [id number] 04:23:00 Test Item Value Reference Range Interpretation Comments TOTAL PROTEIN 6.4 gm/dL 6.0-8.3 Specimen sligh tly (BEAKER) (test code = hemoly zed 770) ALBUMIN (BEAKER) 3.7 g/dL 3.5-5.0 Specimen sl ightly (test code = 1145) hemolyzed ALKALINE PHOSPHATASE 49 U/L 40-150 (BEAKER) (test code = 346) BILIRUBIN TOTAL 0.7 mg/dL 0.2-1.2 Specimen sli ghtly (BEAKER) (test code = hemoly zed 377) SODIUM (BEAKER) (test 136 meq/L 136-145 code = 381) POTASSIUM (BEAKER) 3.3 meq/L 3.5-5.1 L Specimen slightly (test code = 379) hemolyzed CHLORIDE (BEAKER) 101 meq/L 98-107 (test code = 382) CO2 (BEAKER) (test 25 meq/L 22-29 code = 355) BLOOD UREA NITROGEN 7 mg/dL 7-21 (BEAKER) (test code = 354) CREATININE (BEAKER) 0.80 mg/dL 0.57-1.25 Specimen slightly (test code = 358) hemolyzed GLUCOSE RANDOM 239 mg/dL 70-105 H (BEAKER) (test code = 652) CALCIUM (BEAKER) 8.1 mg/dL 8.4-10.2 L (test code = 697) AST (SGOT) (BEAKER) 22 U/L 5-34 Specimen slightly (test code = 353) hemolyzed ALT (SGPT) (BEAKER) 34 U/L 6-55 Specimen slightly (test code = 347) hemolyzed EGFR (BEAKER) (test 96 mL/min/1.73 ESTIMA TIBURCIO GFR IS code = 1092) sq m NOT ACCURATE CREATININE CLEARANCE IN PREDICTING GLOMERULAR FILTRATION RATE . ESTIMATED GFR I S NOT APPLICABLE FOR DIALYSIS PATIEN TS. Financial Developer ID - ADMINLIPID [id number] 04:23:00 Test Item Value Reference Range Interpretation Comments TRIGLYCERIDES (BEAKER) 102 mg/dL Speci men slightly (test code = 540) hemolyzed CHOLESTEROL (BEAKER) 162 mg/dL Specime n slightly (test code = 631) hemolyzed HDL CHOLESTEROL (BEAKER) 53 mg/dL (test code = 976) LDL CHOLESTEROL 89 mg/dL CALCULATED (BEAKER) (test code = 633) Triglyceride Reference Range: Low Risk <150 Borderline 150-199 High Risk 200-499 Very High Risk >=500Cholesterol Reference Range: Low Risk <200 Borderline 200-239 High Risk >240HDL Cholesterol Reference Range: Low Risk >=60 High Risk <40LDL Cholesterol Reference Range: Optimal <100 Near Optimal 100-129 Borderline 130-159 High 160-189 Very High >=190 Financial Developer ID - ADMINLACTIC ACID, [id number] 04:15:00 Test Item Value Reference Range Interpretation Comments LACTATE BLOOD VENOUS 1.17 mmol/L 0.50-2.20 Specime n moderately (2) (BEAKER) (test hemolyzed code = 2872) Financial Developer ID - ADMINPOCT-GLUCOSE [id number] 04:06:00 Test Item Value Reference Range Interpretation Comments POC-GLUCOSE METER 236 mg/dL 70-110 H : TESTED A T [facility] 6720 (BEAKER) (test code = [place], 1538) [address]: Financial Developer/Techni prabha ID = [id number] for FLAVIO DE JESUS CBC W/PLT COUNT & AUTO [id number] 04:01:00 Test Item Value Reference Range Interpretation Comments WHITE BLOOD CELL COUNT (BEAKER) 7.1 K/ L 3.5-10.5 (test code = 775) RED BLOOD CELL COUNT (BEAKER) 4.58 M/ L 4.63-6.08 L (test code = 761) HEMOGLOBIN (BEAKER) (test code = 14.6 GM/DL 13.7-17.5 410) HEMATOCRIT (BEAKER) (test code = 40.0 % 40.1-51.0 L 411) MEAN CORPUSCULAR VOLUME (BEAKER) 87.3 fL 79.0-92.2 (test code = 753) MEAN CORPUSCULAR HEMOGLOBIN 31.9 pg 25.7-32.2 (BEAKER) (test code = 751) MEAN CORPUSCULAR HEMOGLOBIN CONC 36.5 GM/DL 32.3-36.5 (BEAKER) (test code = 752) RED CELL DISTRIBUTION WIDTH 11.5 % 11.6-14.4 L (BEAKER) (test code = 412) PLATELET COUNT (BEAKER) (test 186 K/CU MM 150-450 code = 756) MEAN PLATELET VOLUME (BEAKER) 10.2 fL 9.4-12.4 (test code = 754) NUCLEATED RED BLOOD CELLS 0 /100 WBC 0-0 (BEAKER) (test code = 413) NEUTROPHILS RELATIVE PERCENT 74 % (BEAKER) (test code = 429) LYMPHOCYTES RELATIVE PERCENT 17 % (BEAKER) (test code = 430) MONOCYTES RELATIVE PERCENT 8 % (BEAKER) (test code = 431) EOSINOPHILS RELATIVE PERCENT 1 % (BEAKER) (test code = 432) BASOPHILS RELATIVE PERCENT 0 % (BEAKER) (test code = 437) NEUTROPHILS ABSOLUTE COUNT 5.29 K/ L 1.78-5.38 (BEAKER) (test code = 670) LYMPHOCYTES ABSOLUTE COUNT 1.21 K/ L 1.32-3.57 L (BEAKER) (test code = 414) MONOCYTES ABSOLUTE COUNT (BEAKER) 0.54 K/ L 0.30-0.82 (test code = 415) EOSINOPHILS ABSOLUTE COUNT 0.05 K/ L 0.04-0.54 (BEAKER) (test code = 416) BASOPHILS ABSOLUTE COUNT (BEAKER) 0.02 K/ L 0.01-0.08 (test code = 417) IMMATURE GRANULOCYTES-RELATIVE 0 % 0-1 PERCENT (BEAKER) (test code = 9051)
[2021-02-06 03:48] LABS: Absolute Lymphocytes (CBC) 1.1 K/uL (0.7-4.9); Basophils % 0.3 % (0-1.3); Hematocrit 40.2 % (39.6-49.0); Lymphocytes % 11.9 % (15.3-44.8); MPV 9.7 fL (7.6-11.3); RBC Red Blood Cell Count 4.49 M/uL (4.33-5.43)
[2021-02-06] MEDS ORDERED: MORPHINE 4 MG/ML SYR ONE ×3 (03:51→12:25)
[2021-02-06] MEDS ORDERED: ONDANSETRON 4 MG/2 ML VIAL ONE ×2 (03:52→12:25)
[2021-02-06] MEDS ORDERED: FAMOTIDINE 20 MG/2 ML VIAL IV ONE (03:52)
[2021-02-06] MEDS ORDERED: NA CHLORIDE 0.9% 1,000 ML ONE ×2 (03:52→05:32)
[2021-02-06 04:25] LABS: ALT/SGPT 27 U/L (12-78); AST/SGOT 12 U/L (15-37); Albumin 3.8 g/dL (3.4-5.0); Alkaline Phosphatase 62 U/L (45-117); BUN Blood Urea Nitrogen 14 mg/dL (7-18); Bicarbonate 25 mmol/L (21-32); Bilirubin Direct 0.1 mg/dL (0-0.2); Bilirubin Total 0.5 mg/dL (0.2-1.0); Glucose Level 228 mg/dL (74-106); Lipase 11049 U/L (73-393); Potassium 3.6 mmol/L (3.5-5.1); Protein, Total 7.2 g/dL (6.4-8.2); Sodium Level 138 mmol/L (136-145)
[2021-02-06 05:01] LABS: Urine Blood Negative (Negative); Urine Glucose 1+ (Negative); Urine Protein Negative (Negative); Urine Specific Gravity 1.025 (1.005-1.030)
--- NOTE | 2021-02-06 05:18 | P.HP ---
Certification for Inpatient Patient admitted to: Inpatient With expected LOS: >2 Midnights Patient will require the following post-hospital care: None Practitioner: I am a practitioner with admitting privileges, knowledge of patient current condition, hospital course, and medical plan of care. Services: Services provided to patient in accordance with Admission requirements found in Title 42 Section 412.3 of the Code of Federal Regulations Patient History Date of Service: 02/06/21 Primary Care Provider: none Reason for admission: Acute pancreatitis History of Present Illness: 70-year-old male with history of diabetes mellitus type 2 and hypertension with 1 previous episode of pancreatitis presents emergency depart ment with epigastric pain. Patient reports having similar pain last month when he was 1st diagnosed with pancreatitis and transferred as his CBD measured 8 mm and it was noted that he had cholelithiasis. Patient was transferred to [facility], son reports that patient did not require cholecystectomy and was discharged to follow up on an outpatient basis with GI. Patient has been doing well since then, has abstain from alcohol but began having pain last night. Patient evaluated in the emergency department, lipase 11,049 glucose 228. Lipid panel pending, CT abdomen pelvis pending. ED provider wishes to admit for further evaluation and management. - Past Medical/Surgical History -: Diabetes mellitus type 2 -: Hypertension -: Pancreatitis -: Cholelithiasis -: none Psychosocial/ Personal History: Patient is retired, lives alone - Family History Father -: Diabetes - Social History Smoking Status: Never smoker Alcohol use: No CD- Drugs: No Caffeine use: Yes Place of Residence: Home Review of Systems 10-point ROS is otherwise unremarkable Gastrointestinal: Nausea, Abdominal Pain Physical Examination - Physical Exam General: Alert, In no apparent distress, Oriented x3 HEENT: Atraumatic, PERRLA, Mucous membr. moist/pink Neck: Supple, 2+ carotid pulse no bruit, No LAD Respiratory: Clear to auscultation bilaterally, Normal air movement Cardiovascular: Regular rate/rhythm, Normal S1 S2 Gastrointestinal: Normal bowel sounds, No rebound, No guarding, Tenderness (Moderate epigastric tenderness) Musculoskeletal: No tenderness Integumentary: No rashes Neurological: Normal gait, Normal speech, Normal strength at 5/5 x4 extr, Normal tone, Normal affect - Studies Laboratory Data (last 24 hrs) 02/06/21 03:25: WBC 9.30, Hgb 13.8, Hct 40.2, Plt Count 179 02/06/21 03:25: Sodium 138, Potassium 3.6, BUN 14, Creatinine 0.81, Glucose 228 H, Total Bilirubin 0.5, AST 12 L, ALT 27, Alkaline Phosphatase 62, Lipase 41564 H Assessment and Plan - Plan Assessment Acute pancreatitis Diabetes mellitus type 2 Hypertension Plan Acute pancreatitis: NPO, IVF, p.r.n. pain meds and anti emetics. Trend lipase levels, advanced diet as tolerated. DVT prophylaxis Lovenox 40 mg subcutaneous once daily. Diabetes mellitus type 2: Q.6h Accu-Cheks while patient is NPO, A1c with morning labs. Sliding scale insulin Hypertension: Obtain and continue home medications, restart when patient is tolerating p.o.. Discharge Plan: Home Plan to discharge in: Greater than 2 days - Advance Directives Does patient have a Living Will: No Does patient have a Durable POA for Healthcare: No - Code Status/Comfort Care Code Status Assessed: Yes (Full code) Critical Care: No Time Spent Managing Pts Care (In Minutes): 55
--- NOTE | 2021-02-06 07:21 | ER ---
Nurse's Notes [facility] Name: Jose Kitchen Age: 70 yrs Sex: Male : 1950 Arrival Date: 02/06/2021 Time: 02:24 Bed 18 Private MD: Diagnosis: Acute pancreatitis-on Chronic Pancreatititis, with enlarging pseudocyst;Pseudocyst of pancreas-3.1x 2.1x 2.2 cm;Cholelithiasis;Abdominal tenderness;Type 2 diabetes mellitus Presentation: 02/06 02:44 Chief complaint: Patient's son or daughter states: Upper abdominal pain starting sf suddenly at 1999 last night after eating, hx of pancreatitis, denies N/V/D. Coronavirus screen: Client denies travel out of the [place] in the last 14 days. At this time, the client does not indicate any symptoms associated with coronavirus-19. Ebola Screen: Patient negative for fever greater than or equal to 101.5 degrees Fahrenheit, and additional compatible Ebola Virus Disease symptoms Patient denies exposure to infectious person. Patient denies travel to an Ebola-affected area in the 21 days before illness onset. No symptoms or risks identified at this time. Initial Sepsis Screen: Does the patient meet any 2 criteria? No. Patient's initial sepsis screen is negative. Does the patient have a suspected source of infection? Yes: Acute abdominal pain. Risk Assessment: Do you want to hurt yourself or someone else? Patient reports no desire to harm self or others. Onset of symptoms was February 05, 2021 at 20:00. 02:44 Method Of Arrival: Ambulatory sf 02:44 Acuity: DHRUV 3 sf Triage Assessment: 02:46 General: Appears in no apparent distress. comfortable, Behavior is calm, cooperative. sf Pain: Complains of pain in right upper quadrant and left upper quadrant Pain currently is 8 out of 10 on a pain scale. Neuro: No deficits noted. Level of Consciousness is awake, alert, Oriented to person, place, time, situation. Cardiovascular: Patient's skin is warm and dry. Rhythm is sinus bradycardia. Respiratory: No deficits noted. Airway is patent Respiratory effort is even, unlabored, Respiratory pattern is regular, symmetrical. GI: Abdomen is non-distended, Reports upper abdominal pain, Patient currently denies diarrhea, nausea, vomiting. : No deficits noted. No signs and/or symptoms were reported regarding the genitourinary system. Derm: No deficits noted. No signs and/or symptoms reported regarding the dermatologic system. Musculoskeletal: No deficits noted. No signs and/or symptoms reported regarding the musculoskeletal system. Historical: - Allergies: 02:46 PENICILLINS; sf - Home Meds: 02:46 Unable to obtain [Active]; sf - PMHx: 02:46 Diabetes - NIDDM; Hypertension; Pancreatitis; Gallstones; sf - PSHx: 02:46 None; sf - Immunization history:: Adult Immunizations up to date. - Social history:: Smoking status: Patient denies any tobacco usage or history of. Patient/guardian denies using alcohol, the patient reports quitting approximately 0.[address] drugs, IV drugs. Screenin:49 Abuse screen: Denies threats or abuse. Denies injuries from another. Nutritional sf screening: No deficits noted. Tuberculosis screening: No symptoms or risk factors identified. Fall Risk None identified. No fall in past 12 months (0 pts). No secondary diagnosis (0 pts). IV access (20 points). Ambulatory Aid- None/Bed Rest/Nurse Assist (0 pts). Gait- Normal/Bed Rest/Wheelchair (0 pts) Mental Status- Oriented to own ability (0 pts). Total Miller Fall Scale indicates No Risk (0-24 pts). Assessment: 02:48 Reassessment: SEE TRIAGE ASSESSMENT. sf 04:35 Reassessment: Patient appears in no apparent distress at this time. Patient and/or sf family updated on plan of care and expected duration. Pain level reassessed. Patient is alert, oriented x 3, equal unlabored respirations, skin warm/dry/pink. Patient states feeling better. Patient states symptoms have improved. 05:00 Reassessment: Patient appears in no apparent distress at this time. Patient and/or sf family updated on plan of care and expected duration. Pain level reassessed. Patient is alert, oriented x 3, equal unlabored respirations, skin warm/dry/pink. 06:00 Reassessment: Patient appears in no apparent distress at this time. Patient and/or sf family updated on plan of care and expected duration. Pain level reassessed. Patient is alert, oriented x 3, equal unlabored respirations, skin warm/dry/pink. 07:00 Reassessment: Patient appears in no apparent distress at this time. Patient and/or sf family updated on plan of care and expected duration. Pain level reassessed. Patient is alert, oriented x 3, equal unlabored respirations, skin warm/dry/pink. 10:12 GI: Bowel sounds present X 4 quads. Abd is soft Abdomen is tender to palpation X 4 ll1 quads. Vital Signs: 02:38 BP 180 / 54; Pulse 51; sf 02:44 BP 180 / 54; Pulse 51; Resp 16; Temp 98.2; Pulse Ox 99% ; Weight 74.39 kg; Height 4 ft. sf 9 in. (144.78 cm); Pain 8/10; 03:00 BP 163 / 69; Pulse 56; Resp 16; Pulse Ox 98% ; sf 03:30 BP 141 / 53; Pulse 66; Resp 16; Pulse Ox 98% ; sf 04:00 BP 148 / 71; Pulse 57; Resp 16; Pulse Ox 94% ; sf 04:30 BP 150 / 80; Pulse 56; Resp 16; Pulse Ox 95% ; sf 04:35 Pain 7/10; sf 05:00 BP 154 / 66; Pulse 61; Resp 16; Pulse Ox 99% ; sf 05:30 BP 156 / 72; Pulse 59; Resp 16; Pulse Ox 97% ; sf 06:00 BP 147 / 68; Pulse 58; Resp 16; Pulse Ox 95% ; sf 06:30 BP 153 / 68; Pulse 55; Resp 16; Pulse Ox 95% ; sf 09:43 BP 156 / 70; Pulse 53; Resp 16; Pulse Ox 97% on R/A; ll1 02:44 Body Mass Index 35.49 (74.39 kg, 144.78 cm) ED Course: 02:24 Patient arrived in ED. es 02:33 Dougie Cavazos MD is Attending Physician. 7 02:43 Henry Olivo, SAMARIA is Primary Nurse. sf 02:46 Triage completed. sf 02:46 Arm band placed on. sf 02:49 Patient has correct armband on for positive identification. Placed in gown. Bed in low sf position. Call light in reach. Side rails up X 1. metal sorter on. Pulse ox on. NIBP on. Door closed. Noise minimized. Visitors limited. Lights dimmed. Verbal reassurance given. 03:20 EKG done, by ED staff, reviewed by Dougie Cavazos MD. sf 03:25 Initial lab(s) drawn, by me, sent to lab. Inserted saline lock: 20 gauge in right sf antecubital area, using aseptic technique. Blood collected. 04:34 CT Abd/Pelvis - IV Contrast Only Sent. sf 04:50 No provider procedures requiring assistance completed. Urine collected: clean catch sf specimen, clear. Patient admitted, IV remains in place. 04:58 CT Abd/Pelvis - IV Contrast Only In Process Unspecified. EDMS 05:15 COVID swab sent to lab. sf 05:59 transfer initiated by Emily Roberts with [place] from the [facility]. eb 06:18 Per [place] from the [facility], [facility] and [facility] are at capacity for all beds. 06:59 transfer initiated with Kaylee Roberts from the [facility]/. eb 07:05 per Kaylee at the [facility] transfer Center [facility], [facility], and [facility] eb will have to decline the patient in transfer they are at capacity. She will try [facility] [place] and call us back. 07:09 Attending Physician role handed off by Dougie Cavazos MD yohan 07:09 Jeremy Ritchie MD is Attending Physician. yohan 07:20 Report given to SAMARIA Riley. sf 07:23 transfer re initiated by Dr. Ritchie with Sharon Gambino from the [facility]. 07:35 per Sharon from the [facility] Transfer per her [facility] environmental health officer they will have to eb decline the patient in transfer due to being at capacity. 07:[address] Ritchie with Karyn Gray Rn from the [facility]. 07:[address] [facility] will have to decline the patient in transfer due to being eb at capacity/ She will try [facility]. 08:21 per Karyn from the [facility] is at capacity and she eb will try [facility]. 08:56 Karyn from the [facility] called for a 15 minute extension. eb 09:02 per Karyn from the [facility] / [facility] has eb declined the patient in transfer due to being at capacity. She will try [facility]. 09:13 connected the GI environmental health officer for [facility] with Dr. Chau rahman patient transfer consultation. 09:25 connected the hospitalist environmental health officer for [facility] with Dr. Chau rahman for patient transfer consultation. 09:29 administrative approval given by Karyn Rivas Rn/ patient has been accepted to the [facility] 7m/ Dr. Yemi Alonso has accepted the patient in transfer/ Report to be called to [phone]. Administered Medications: 03:37 Drug: NS 0.9% 1000 ml Route: IV; Rate: 1000 ml; Site: right antecubital; sf 04:34 Follow up: Response: No adverse reaction; IV Status: Completed infusion; IV Intake: sf 1000ml 03:38 Drug: Zofran (Ondansetron) 4 mg Route: IVP; Site: right antecubital; sf 04:34 Follow up: Response: No adverse reaction sf 03:39 Drug: Pepcid (famotidine) 20 mg Route: IVP; Site: right antecubital; sf 04:34 Follow up: Response: No adverse reaction; Pain is decreased sf 03:40 Drug: morphine 4 mg Route: IVP; Site: right antecubital; sf 04:34 Follow up: Response: No adverse reaction; Pain is decreased sf 05:12 Drug: NS 0.9% 1000 ml Route: IV; Rate: 125 ml/hr; Site: right antecubital; sf 12:24 Follow up: Response: No adverse reaction; RASS: Alert and Calm (0); IV Status: ll1 Completed infusion; IV Intake: 1000ml 05:13 Drug: morphine 4 mg Route: IVP; Site: right antecubital; sf 10:22 Follow up: Response: No adverse reaction; RASS: Alert and Calm (0) ll1 07:36 Drug: Meropenem 1 grams Route: IV; Rate: per protocol; Site: right antecubital; ll1 08:06 Follow up: Response: No adverse reaction; RASS: Alert and Calm (0); IV Status: ll1 Completed infusion; IV Intake: 100ml 12:10 Drug: morphine 4 mg Route: IVP; Site: right antecubital; ll1 12:24 Follow up: Response: No adverse reaction; RASS: Alert and Calm (0) ll1 12:10 Drug: Zofran (Ondansetron) 4 mg Route: IVP; Site: right antecubital; ll1 12:24 Follow up: Response: No adverse reaction; RASS: Alert and Calm (0) ll1 Intake: 04:34 IV: 1000ml; Total: 1000ml. sf 08:06 IV: 100ml; Total: 1100ml. ll1 12:24 IV: 1000ml; Total: 2100ml. 1 Output: 04:50 Urine: 425ml (Voided); Total: 425ml. sf 05:52 Urine: 350ml (Voided); Total: 775ml. sf Outcome: 07:21 ER care complete, transfer ordered by . yohan 10:12 Transferred by ground EMS to [facility], Transfer form completed. X-rays sent 1 w/ patient. Note: Report given to Bessy Payton RN at [facility] 7M. 10:12 Condition: stable 12:24 Patient left the ED. 1 Signatures: Dispatcher [employer] Jeremy Cody MD MD cha Salyer, Sharon Dean Lynsay, RN RN 1 Dougie Cavazos MD MD [facility] Henry Olivo RN RN sf
--- NOTE | 2021-02-06 07:21 | EDPHYS ---
Physician Documentation [facility] Name: Jose Kitchen Age: 70 yrs Sex: Male : 1950 Arrival Date: 02/06/2021 Time: 02:24 Bed 18 Private MD: ED Physician Jeremy Ritchie HPI: 02/06 04:35 This 70 yrs old Male presents to ER via Ambulatory with complaints of mh7 Abdominal Pain. 04:35 The patient presents with abdominal pain in the upper abdomen. Onset: The mh7 symptoms/episode began/occurred last night, at 20:00. The symptoms radiate to the left flank. Associated signs and symptoms: Pertinent negatives: nausea, vomiting, and diarrhea, nausea and vomiting, anorexia, blood in stools, chest pain, constipation, diarrhea, dysuria, fever, headache, hematuria, nausea, palpitations, shortness of breath, testicular pain, vomiting, vomiting blood. The symptoms are described as intermittent, vague, waxing/waning. Modifying factors: The symptoms are alleviated by nothing, the symptoms are aggravated by nothing. Severity of pain: At its worst the pain was moderate last night, in the emergency department the pain is unchanged. Historical: - Allergies: 02:46 PENICILLINS; sf - Home Meds: 02:46 Unable to obtain [Active]; sf - PMHx: 02:46 Diabetes - NIDDM; Hypertension; Pancreatitis; Gallstones; sf - PSHx: 02:46 None; sf - Immunization history:: Adult Immunizations up to date. - Social history:: Smoking status: Patient denies any tobacco usage or history of. Patient/guardian denies using alcohol, the patient reports quitting approximately 0.[address] drugs, IV drugs. ROS: 04:35 Constitutional: Negative for fever, chills, and weight loss, Eyes: Negative for injury, mh7 pain, redness, and discharge, ENT: Negative for injury, pain, and discharge, Neck: Negative for injury, pain, and swelling, Cardiovascular: Negative for chest pain, palpitations, and edema, Respiratory: Negative for shortness of breath, cough, wheezing, and pleuritic chest pain, Back: Negative for injury and pain, : Negative for injury, bleeding, discharge, and swelling, MS/Extremity: Negative for injury and deformity, Skin: Negative for injury, rash, and discoloration, Neuro: Negative for headache, weakness, numbness, tingling, and seizure, Psych: Negative for depression, anxiety, suicide ideation, homicidal ideation, and hallucinations, Allergy/Immunology: Negative for hives, rash, and allergies, Endocrine: Negative for neck swelling, polydipsia, polyuria, polyphagia, and marked weight changes, Hematologic/Lymphatic: Negative for swollen nodes, abnormal bleeding, and unusual bruising. Exam: 04:35 Constitutional: This is a well developed, well nourished patient who is awake, alert, mh7 and in no acute distress. Head/Face: Normocephalic, atraumatic. Eyes: Pupils equal round and reactive to light, extra-ocular motions intact. Lids and lashes normal. Conjunctiva and sclera are non-icteric and not injected. Cornea within normal limits. Periorbital areas with no swelling, redness, or edema. Neck: Trachea midline, no thyromegaly or masses palpated, and no cervical lymphadenopathy. Supple, full range of motion without nuchal rigidity, or vertebral point tenderness. No Meningismus. Chest/axilla: Normal chest wall appearance and motion. Nontender with no deformity. No lesions are appreciated. Cardiovascular: Regular rate and rhythm with a normal S1 and S2. No gallops, murmurs, or rubs. Normal PMI, no JVD. No pulse deficits. Respiratory: Lungs have equal breath sounds bilaterally, clear to auscultation and percussion. No rales, rhonchi or wheezes noted. No increased work of breathing, no retractions or nasal flaring. 04:35 Back: No spinal tenderness. No costovertebral tenderness. Full range of motion. Skin: Warm, dry with normal turgor. Normal color with no rashes, no lesions, and no evidence of cellulitis. MS/ Extremity: Pulses equal, no cyanosis. Neurovascular intact. Full, normal range of motion. Neuro: Awake and alert, GCS 15, oriented to person, place, time, and situation. Cranial nerves II-XII grossly intact. Motor strength 5/5 in all extremities. Sensory grossly intact. Cerebellar exam normal. Normal gait. Psych: Awake, alert, with orientation to person, place and time. Behavior, mood, and affect are within normal limits. 04:35 Abdomen/GI: Inspection: obese Bowel sounds: normal, in all quadrants, Palpation: moderate abdominal tenderness, in the epigastric area and left upper quadrant, mass, is not appreciated, rebound tenderness, is not appreciated, voluntary guarding, is not appreciated, involuntary guarding, is not appreciated, no appreciated organomegaly, Rectal exam: the exam is deferred, because of patient request, Indicators: McBurney's point is not tender, Dunn's sign is negative, Rovsing's sign is negative, Obturator sign is negative, Psoas sign is negative, Liver: no appreciated palpable abnormalities, Hernia: not appreciated. Vital Signs: 02:38 BP 180 / 54; Pulse 51; sf 02:44 BP 180 / 54; Pulse 51; Resp 16; Temp 98.2; Pulse Ox 99% ; Weight 74.39 kg; Height 4 ft. sf 9 in. (144.78 cm); Pain 8/10; 03:00 BP 163 / 69; Pulse 56; Resp 16; Pulse Ox 98% ; sf 03:30 BP 141 / 53; Pulse 66; Resp 16; Pulse Ox 98% ; sf 04:00 BP 148 / 71; Pulse 57; Resp 16; Pulse Ox 94% ; sf 04:30 BP 150 / 80; Pulse 56; Resp 16; Pulse Ox 95% ; sf 04:35 Pain 7/10; sf 05:00 BP 154 / 66; Pulse 61; Resp 16; Pulse Ox 99% ; sf 05:30 BP 156 / 72; Pulse 59; Resp 16; Pulse Ox 97% ; sf 06:00 BP 147 / 68; Pulse 58; Resp 16; Pulse Ox 95% ; sf 06:30 BP 153 / 68; Pulse 55; Resp 16; Pulse Ox 95% ; sf 09:43 BP 156 / 70; Pulse 53; Resp 16; Pulse Ox 97% on R/A; ll1 02:44 Body Mass Index 35.49 (74.39 kg, 144.78 cm) MDM: 07:09 Patient medically screened. yohan 07:17 Differential diagnosis: bowel obstruction, cholecystitis, Cholelithiasis, gastritis, yohan non-specific abd pain, pancreatitis, Peptic Ulcer Disease, Pyelonephritis. Data reviewed: vital signs, nurses notes, lab test result(s), radiologic studies, CT scan, ultrasound. Data interpreted: nurse monitoring: rate is 55 beats/min, rhythm is regular, Pulse oximetry: on room air. Counseling: I had a detailed discussion with the patient and/or guardian regarding: the historical points, exam findings, and any diagnostic results supporting the discharge/admit diagnosis, radiology results, the need to transfer to another facility, for higher level of care, [facility] does not immediately have the required specialist. 02/06 03:01 Order name: Basic Metabolic Panel; Complete Time: 05:05 [facility] 02/06 03:01 Order name: CBC with Diff; Complete Time: 04:27 [facility] 02/06 03:01 Order name: Hepatic Function; Complete Time: 04:26 [facility] 02/06 03:01 Order name: Lipase; Complete Time: 04:26 [facility] 02/06 04:55 Order name: Lipid Profile; Complete Time: 05:34 02/06 05:00 Order name: Urine Dipstick-Ancillary [facility] 02/06 03:01 Order name: CT Abd/Pelvis - IV Contrast Only [facility] 02/06 05:21 Order name: COVID-19 : Document "Date of Symptom Onset" if Symptomatic. 02/06 05:31 Order name: CORONAVIRUS [facility] 02/06 06:11 Order name: SARS-COV-2 RT PCR; Complete Time: 07:12 [facility] 02/06 03:01 Order name: IV Saline Lock; Complete Time: 03:42 [facility] 02/06 03:01 Order name: Labs collected and sent; Complete Time: 03:42 [facility] 02/06 03:01 Order name: Urine Dipstick-Ancillary (obtain specimen); Complete Time: 05:01 [facility] 02/06 03:01 Order name: EKG - Nurse/Tech; Complete Time: 03:39 mh7 Administered Medications: 03:37 Drug: NS 0.9% 1000 ml Route: IV; Rate: 1000 ml; Site: right antecubital; sf 04:34 Follow up: Response: No adverse reaction; IV Status: Completed infusion; IV Intake: sf 1000ml 03:38 Drug: Zofran (Ondansetron) 4 mg Route: IVP; Site: right antecubital; sf 04:34 Follow up: Response: No adverse reaction sf 03:39 Drug: Pepcid (famotidine) 20 mg Route: IVP; Site: right antecubital; sf 04:34 Follow up: Response: No adverse reaction; Pain is decreased sf 03:40 Drug: morphine 4 mg Route: IVP; Site: right antecubital; sf 04:34 Follow up: Response: No adverse reaction; Pain is decreased sf 05:12 Drug: NS 0.9% 1000 ml Route: IV; Rate: 125 ml/hr; Site: right antecubital; sf 12:24 Follow up: Response: No adverse reaction; RASS: Alert and Calm (0); IV Status: ll1 Completed infusion; IV Intake: 1000ml 05:13 Drug: morphine 4 mg Route: IVP; Site: right antecubital; sf 10:22 Follow up: Response: No adverse reaction; RASS: Alert and Calm (0) [facility] 07:36 Drug: Meropenem 1 grams Route: IV; Rate: per protocol; Site: right antecubital; [facility] 08:06 Follow up: Response: No adverse reaction; RASS: Alert and Calm (0); IV Status: 1 Completed infusion; IV Intake: 100ml 12:10 Drug: morphine 4 mg Route: IVP; Site: right antecubital; [facility] 12:24 Follow up: Response: No adverse reaction; RASS: Alert and Calm (0) [facility] 12:10 Drug: Zofran (Ondansetron) 4 mg Route: IVP; Site: right antecubital; [facility] 12:24 Follow up: Response: No adverse reaction; RASS: Alert and Calm (0) [facility] Disposition: 02/06/21 07:21 Transfer ordered to Other Acute Care Facility. Diagnosis are Acute pancreatitis - on Chronic Pancreatititis, with enlarging pseudocyst, Pseudocyst of pancreas - 3.1x 2.1x 2.2 cm, Cholelithiasis, Abdominal tenderness, Type 2 diabetes mellitus. - Reason for transfer: Higher level of care. - Accepting physician is to [facility]. - Condition is Fair. - Problem is an acute exacerbation. - Symptoms have worsened. Signatures: Dispatcher [employer] EDJeremy Mendieta MD MD cha Attema, Lee, FELLER SEAM OPERATOR-C FELLER SEAM OPERATOR-Cla1 Rosemary Dunbar RN RN 1 Dougie Cavazos MD MD 7 Henry Olivo RN RN sf Corrections: (The following items were deleted from the chart) 12:24 07:21 02/06/2021 07:21 Transfer ordered to Other Acute Care Facility. Diagnosis is ll1 Acute pancreatitis - on Chronic Pancreatititis, with enlarging pseudocyst; Pseudocyst of pancreas - 3.1x 2.1x 2.2 cm; Cholelithiasis; Abdominal tenderness; Type 2 diabetes mellitus. Reason for transfer: Higher level of care. Accepting physician is to acute [facility]. Condition is Fair. Problem is an acute exacerbation. Symptoms have worsened. yohan
[2021-02-06] MEDS ORDERED: Meropenem 1 GM/100 ML BAG ONE (07:46)
[2021-02-06 12:32] VITALS: TEMP 98.2
[2021-02-06 12:46] VITALS: BP 156/70; O2SAT 97
--- NOTE | 2021-02-06 13:34 | RAD REPORT ---
EXAM DESCRIPTION: CT Abdomen and Pelvis COMPARISON: CT abdomen pelvis December 15, 2020 CLINICAL HISTORY: [facility] MAIN ABD PAIN TECHNIQUE: CT of the abdomen and pelvis was acquired with IV contrast material. Coronal and sagitt al reconstructions were obtained. Automated exposure control was utilized on this examination as a dose lowering technique. FINDINGS: Lung bases: Clear. Liver: Normal. Gallbladder and biliary: Small dependent gallstones are noted. Unremarkable biliary tree. Pancreas: There is a 3.1 x 2.1 x 2.2 cm cystic structure of the pancreatic tail with surrounding fat stranding and layering fluid. This has mildly increased in size from December 15, 2020. Spleen: Normal. Adrenal glands: Normal adrenal glands. Kidneys: A small left renal cyst is noted. Normal right kidney. Stomach and Small Bowel: The stomach and small bowel are normal. Urinary bladder: Normal. Prostate/Male Urogenital: Normal. Colon and Appendix: Severe sigmoid diverticulosis is present. No evidence of appendicitis. Retroperitoneum and lymph nodes: Normal. Vascular: Mild atherosclerosis. Peritoneal cavity: No ascites or free air. Musculoskeletal and soft tissues: Small fat-containing left inguinal hernia. No aggressive bone lesio ns. No compression fracture. IMPRESSION: 1. Mild increase in size of the cystic structure in the pancreatic tail with mild progre ssion of adjacent fat stranding and layering fluid from December 15. This is favored to represent acute o n chronic pancreatitis with mildly enlarging pseudocyst, walled-off necrosis, or ductal dilatation. I PMN and cystic neoplasm are not excluded and could be further evaluated with MRI with pancreatic prot ocol. 2. Cholelithiasis. 3. Severe sigmoid diverticulosis. Electronically signed by: Zackary Corcoran MD 02/06/2021 5:19 AM CDT Due to temporary technical issues with the PACS/Fluency reporting system, reports are being signed by the in house radiologist without review as a courtesy to ensure prompt reporting. The interpreting r adiologist is fully responsible for the content of the report.
--- NOTE | 2021-02-09 09:24 | EKG ---
Test Date: 2021-02-06 Test Time: 03:20:57 Service Attendant [employer]: AMITA MEASUREMENT RESULTS: Intervals: Rate: 57 WY: 166 QRSD: 94 QT: 424 QTc: 412 [place]: P: 43 WY: 166 QRS: 48 T: 47 INTERPRETIVE STATEMENTS: Sinus bradycardia Otherwise normal ECG No previous ECG available for comparison Electronically Signed On 02-09-21 09:17:53 CDT by Navarro Urbina
== END 2021-02-06 12:24 ==
LOC: ER 02:18 → ERHOLD 05:09 → UNDOADMIN 05:09 → ER 12:24
DX: K85.90 Acute pancreatitis without necrosis or infection, unspecified (principal); K86.1 Other chronic pancreatitis; K86.3 Pseudocyst of pancreas; E11.9 Type 2 diabetes mellitus without complications; K80.20 Calculus of gallbladder without cholecystitis without obstruction; Z20.822 Contact with and (suspected) exposure to COVID-19; I10 Essential (primary) hypertension
CPT/HCPCS: 36415; 74177; 80048; 80061; 80076; 81003; 83690; 85025; 93005; 96361; 96365; 96375; 99285; J2185; J2405; J7030; Q9967; U0003

== ENCOUNTER 2021-09-06 21:41 | Emergency (ER) | payer OTHER, SELFPAY ==
--- OUTSIDE RECORDS SUMMARY | 2021-09-06 21:44 | XMS REPORT | Continuity of Care Document ---
:1950 Author Organization [facility] t Address [address] [place] [address] Care Team Providers Name Role Phone JESÚS Attending Clinician Unavailable [place] FUENTES Attending Clinician JESÚS Admitting Clinician Unavailable NESS HWANG Admitting Clinician Unavailable Problems Condition Condition Condition Status Onset Resolution Last Treating Co mments Source Name Details Category Date Date Treatment Clinician Date Acute Acute Disease Active [facility] pancreatit pancreatit 01-05 Co llege is is 00:00: of 00 Medicin e Pancreas Pancreas Disease Active [facility] r cyst cyst 01-05 College 00:00: of 00 Medicin e Allergies, Adverse Reactions, Alerts Allergy Allergy Status Severity Reaction(s) Onset Inactive Treating Comm ents Source Name Type Date Date Clinician Penicill Propensi Active Rashes [facility] ins ty to 01-05 College adverse 00:00: of reaction 00 Medicin s to e drug LEMON Allergy Active [facility] BALM 308 (IRINEO 00:00: OFFICINA 00 LIS) PENICILL Allergy Active Low Rash [facility] INS 3-08 00:00: 00 Social History Social Habit Start Date Stop Date Quantity Comments Source Tobacco use and 2021-01-05 2021-01-05 Never used [facility] Co llege exposure 00:00:00 00:00:00 of Medicine Alcohol intake 2021-01-05 2021-01-05 Ex-drinker [facility] Col lege 00:00:00 00:00:00 (finding) of Medicine History of 1990-10-10 Cigarette Smoker [facility] C ollege tobacco use 00:00:00 of Medicine Sex [birth year] [facility]lege 00:00:00 00:00:00 of Medicine Smoking Status Start Date Stop Date Source Former smoker 2021-01-05 00:00:00 2021-01-05 00:00:00 [facility] Medications Ordered Filled Start Stop Current Ordering Indication Dosage Frequency Signature Comments Components Source Medication Medication Date Date Medication? Clinician (SIG) Name Name metformin Yes 500mg Take 500 [place] kumar (GLUCOPHAGE 3-29 mg by [place] ) 500 MG 14:38: mouth. of tablet 57 Medicin e lisinopril Yes 10mg Take 10 mg B ayl[place] (PRINIVIL, 3-29 by mouth. En ege ZESTRIL) 10 14:38: of MG tablet 57 Medicin e ursodiol Yes 300mg Take 1 Benito (ACTIGALL) 3-29 capsule by [facility] lege 300 MG 00:00: mouth two of capsule 00 times Medicin daily. e Vital Signs Vital Name Observation Time Observation Value Comments Source HEIGHT 2020-12-15 22:45:00 157.5 cm WEIGHT 2020-12-15 22:45:00 74.072 kg Body temperature 2021-01-05 14:35:00 36.11 [facility] Body height 2021-01-05 14:35:00 152.4 cm [facility] ollege of Medicine Body weight 2021-01-05 14:35:00 73.392 kg [facility] ol[facility] of Medicine BMI 2021-01-05 14:35:00 31.60 kg/m2 [facility] ol[facility] of Medicine Body temperature 2021-01-05 14:35:00 36.11 [facility] Body height 2021-01-05 14:35:00 152.4 cm [facility] of Medicine Body weight 2021-01-05 14:35:00 73.392 kg [facility] of Medicine BMI 2021-01-05 14:35:00 31.60 kg/m2 [facility] ol[facility] of Medicine HEIGHT 2020-12-15 22:45:00 157.5 cm WEIGHT 2020-12-15 22:45:00 74.072 kg Procedures This patient has no known procedures. Plan of Care Planned Activity Planned Date Details Comments Source Future Scheduled CANCER ANTIGEN 19-9 Ordered: [employer] [code = 52492-2] 01/05/2021 Medicine Future Scheduled Screening for [facility] of [employer] malignant neoplasm Medicine of colon (procedure) [code = 128117793] Future Scheduled TETANUS SHOT [facility] En ege of Test (ADULT) [code = Medicine TETANUS SHOT (ADULT)] Future Scheduled COVID-19 Vaccine [facility] [employer] (1) [code = Medicine COVID-19 Vaccine (1)] Future Scheduled Hepatitis C [facility] En [employer] of Test screening Medicine (procedure) [code = 631032171] Future Scheduled ZOSTER VACCINE (1 [facility] [employer] of 2) [code = Medicine ZOSTER VACCINE (1 of 2)] Future Scheduled FALL SCREEN [code = [employer] FALL SCREEN] Medicine Future Scheduled PNEUMOVAX >=65 [facility] [employer] of Test (PPSV23) [code = Medicine PNEUMOVAX >=65 (PPSV23)] Future Scheduled FLU VACCINE > 6 [facility] C [employer] of Test MONTHS [code = FLU Medicine VACCINE > 6 MONTHS] Encounters Start End Encounter Admission Attending Care Care Encounter Source Date/Time Date/Time Type Type Clinicians Facility Department ID 2021-07-18 Inpatient ER [facility] SLE Gastro [id number] [address] [facility] 07:01:59 JAREN MCELROY 2021-01-05 2021-01-05 Office JOSEY Niño [id number] [facility] 09:18:57 09:48:57 Visit Salmaan AMBULATOR [id number] College Y 0.2.7.2.686 of [id number] Medi joanne 325 e 2021-01-05 2021-01-05 Office JOSEY Niño [id number] 09:18:57 09:48:57 Visit Salmaan AMBULATOR [id number] Y 0.2.7.2.686 [id number] 325 Results Test Description Test Time Test Comments Results Result Sour e Comments FINE NEEDLE 2020-12-25 Medical Cytology Report ASPIRATION BY 15:36:00 CLINICIAN Case: [id number] Authorizing Provider: Viry Alexander Collected: 12/19/2020 11:25 AM MD Lucille Ordering Location: [address] Received: 12/21/2020 02:50 PM Service Pathologist: Yelena France MD Specimen: Pancreas, pancreatic cyst wall PANCREAS, CYST WALL, FNA BY CLINICIAN (CYTOSPINS AND CELL BLOCK OF ASPIRATE): - A STRIP OF COLUMNAR EPITHELIUM WITH ATYPIA, FAVOR LOW GRADE DYSPLASIA (SEE COMMENT) Signing Pathologist Direct Phone Line: [phone] y signed by Yelena France MD on [...] clinical setting. Clinical and radiologic correlation is recommended.99975, 59000; 61511Pgpegjhpag cyst wall FNA PANCREAS, CYST WALL, FNAReceived [...] evaluated Immunohistochemistry technical testing was performed at [facility], Pathology Laboratory where it was developed [...] qualified to perform high complexity clinical laboratory testing.[facility], Department of Pathology, [address] [place] [address], [facility], [address] [place] [address] [place] [address], [facility], [facility], [address] [place] [address], FINE NEEDLE ASPIRATE (FNA) REQUEST 2020-12-21 16:01:00 Test Item Value Reference Range Interpretation Comme nts CYTOLOGY RESULT POINTER (BEAKER) (test code = 2629) See Separate Re port POCT-GLUCOSE [id number] 08:14:00 Test Item Value Reference Range Interpretation Comments POC-GLUCOSE METER 174 mg/dL 70-110 H : TESTED A T [facility] 6720 (BEAKER) (test code = [facility] Michelle [facility], 1538) [address]: Freight Breaker/Techni prabha ID = [id number] for JIMMY BLAKE COMPREHENSIVE METABOLIC [id number] 03:19:00 Test Item Value Reference Range Interpretation [...] mg/dL 70-105 H (BEAKER) (test code = 172) CALCIUM (BEAKER) 9.1 mg/dL 8.4-10.2 (test code = 697) AST (SGOT) (BEAKER) 81 U/L 5-34 H (test code = 353) ALT (SGPT) (BEAKER) 79 U/L 6-55 H (test code = 347) EGFR ([facility]) (test 83 mL/min/1.73 ESTIMA TIBURCIO GFR IS code = 1092) sq m NOT ACCURATE CREATININE CLEARANCE IN PREDICTING GLOMERULAR FILTRATION RATE . ESTIMATED GFR I S NOT APPLICABLE FOR DIALYSIS PATIEN TS. Freight Breaker ID - RAKESH MPOCT-GLUCOSE [id number] 22:13:00 Test Item Value Reference Range Interpretation Comments POC-GLUCOSE METER 259 mg/dL 70-110 H : TESTED A T [facility] 6720 ([facility]) (test code = [facility], 153) [address]: Freight Breaker/Techni prabha ID = [id number] for EV ANS, KARINE POCT-GLUCOSE [id number] 17:23:00 Test Item Value Reference Range Interpretation Comments POC-GLUCOSE METER 267 mg/dL 70-110 H : [facility] 67[facility] ([facility]) (test code = [facility], 153) [address]: Freight Breaker/Techni prabha ID = [id number] for IB RAHIM, SERKALEM POCT-GLUCOSE [id number] 12:32:00 Test Item Value Reference Range Interpretation Comments POC-GLUCOSE METER 201 mg/dL 70-110 H : Notified RN/MD: ([facility]) (test code = TESTED AT [place] [address] 1538) [facility], [address]: Freight Breaker/Techni prabha ID = [id number] for Si mmons, Jeanine POCT-GLUCOSE [id number] 07:47:00 Test Item Value Reference Range Interpretation Comments POC-GLUCOSE METER 210 mg/dL 70-110 H : TESTED A T [facility] 6720 ([facility]) (test code = [facility], 153) [address]: Freight Breaker/Techni prabha ID = [id number] for IB RAHIM, SERKALEM COMPREHENSIVE METABOLIC [id number] 04:56:00 Test Item Value Reference Range Interpretation Comments TOTAL PROTEIN 6.5 gm/dL 6.0-8.3 Specimen moder ately ([facility]) (test code = hemoly zed 770) ALBUMIN ([facility]) 3.6 g/dL 3.5-5.0 Specimen mo derately (test [...] S NOT APPLICABLE FOR DIALYSIS PATIEN TS. Freight Breaker ID - DBPOCT-GLUCOSE [id number] 22:00:00 Test Item Value Reference Range Interpretation Comments POC-GLUCOSE METER 159 mg/dL 70-110 H : TESTED A T [facility] 6720 (BEAKER) (test code = [facility], 1538) [address]: Freight Breaker/Techni prabha ID = [id number] for GIOVANI CHRIS FAHEEM POCT-GLUCOSE [id number] 17:49:00 Test Item Value Reference Range Interpretation Comments POC-GLUCOSE METER 282 mg/dL 70-110 H : TESTED A T [facility] 6720 (BEAKER) (test code = [facility], 1538) [address]: Freight Breaker/Techni prabha ID = [id number] for Kanwal Hickman POCT-GLUCOSE [id number] 11:55:00 Test Item Value Reference Range Interpretation Comments POC-GLUCOSE METER 326 mg/dL 70-110 H : [facility] 67[facility] ([facility]) (test code = [facility], 153) [address]: Freight Breaker/Techni prabha ID = [id number] for Joelle Hickmania POCT-GLUCOSE [id number] 08:51:00 Test Item Value Reference Range Interpretation Comments POC-GLUCOSE METER 173 mg/dL 70-110 H : [facility] 6720 ([facility]) (test code = [facility], 153) [address]: Freight Breaker/Techni prabha ID = [id number] for Ra jordan, Kanwal POCT-GLUCOSE [id number] 23:50:00 Test Item Value Reference Range Interpretation Comments POC-GLUCOSE METER 346 mg/dL 70-110 H : TESTED A T [facility] 6720 ([facility]) (test code = [facility], 153) [address]: Freight Breaker/Techni prabha ID = [id number] for EV ANSKARINE POCT-GLUCOSE [id number] 17:45:00 Test Item Value Reference Range Interpretation Comments POC-GLUCOSE METER 208 mg/dL 70-110 H : Notified RN/MD: [facility] (test code = TESTED AT [place] [address]37) [facility], [address]: Freight Breaker/Techni prabha ID = [id number] for Nalini Bonilla MR, ABDOMEN, [id number] 17:00:00Unlisted Reason for Exam - Click Yes and Enter Reason Below->YesUnlisted Reason for Exam->acute pancreatitis, rule out choledocholithiasis, evaluate pancreatic tail cystDeos the patient have an implanted electronic device?->No [facility] : 1950 Sex: MFINAL REPORT [...] choledocholithiasis. Cholelithiasis. Severe hepatic steatosis. Signed: Jared Hernandez [facility] Verified Date/Time: 12/17/2020 17:00:30 POCT-GLUCOSE [id number] 11:57:00 Test Item Value Reference Range Interpretation Comments POC-GLUCOSE METER 270 mg/dL 70-110 H : Notified RN/MD: (BEAKER) (test code = TESTED AT [facility] 6784 1535) [facility], [address]: Freight Breaker/Techni prabha ID = [id number] for Nalini Bonilla BASIC METABOLIC [id number] 06:53:00 Test Item Value Reference Range Interpretation [...] S NOT APPLICABLE FOR DIALYSIS PATIEN TS. Freight Breaker ID - [id number] 06:53:00 Test Item Value Reference Range Interpretation Comments MAGNESIUM (BEAKER) (test code = 1.8 mg/dL 1.6-2.6 627) Freight Breaker ID - [id number] 06:53:00 Test Item Value Reference Range Interpretation Comments PHOSPHORUS (BEAKER) (test code = 3.0 mg/dL 2.3-4.7 604) Freight Breaker ID - BSHEPATIC FUNCTION [id number] 06:53:00 Test Item Value Reference Range Interpretation [...] (test code = 24 U/L 6-55 347) Freight Breaker ID - BSCBC W/PLT COUNT & AUTO [id number] 06:27:00 Test Item Value Reference Range Interpretation [...] EOSINOPHILS ABSOLUTE COUNT 0.11 K/ L 0.04-0.54 (BEAKER) (test code = 416) BASOPHILS ABSOLUTE COUNT (BEAKER) 0.02 K/ L 0.01-0.08 (test code = 417) IMMATURE GRANULOCYTES-RELATIVE 0 % 0-1 PERCENT (BEAKER) (test code = 2801) POCT-GLUCOSE [id number] 21:40:00 Test Item Value Reference Range Interpretation Comments POC-GLUCOSE METER 167 mg/dL 70-110 H : TESTED A T [facility] 6720 ([facility]) (test code = [facility], 1538) [address]: Freight Breaker/Techni prabha ID = [id number] for EV ANSKARINE POCT-GLUCOSE [id number] 17:25:00 Test Item Value Reference Range Interpretation Comments POC-GLUCOSE METER 170 mg/dL 70-110 H : TESTED A T [facility] 6720 ([facility]) (test code = [facility], 1538) [address]: Freight Breaker/Techni prabha ID = [id number] for Co neil, Nalini POCT-GLUCOSE [id number] 11:43:00 Test Item Value Reference Range Interpretation Comments POC-GLUCOSE METER 194 mg/dL 70-110 H : Notified RN/MD: ([facility]) (test code = TESTED AT [facility] 67 1538) [facility], [address]: Freight Breaker/Techni prabha ID = [id number] for Co neil, Nalini SARS-COV2/RT-PCR ([facility])2020-12-16 10:31:00 Test Item Value Reference Range Interpretation Comments SARS-COV2/RT-PCR (test Negative Not Detected, Negative, code = 0858654) See external report for linked test SARS-COV-2 PERFORMING LAB [facility] (test code = 0136271) Negative result for this test determines that [...] 564(g) of the Act.Fact Sheet for Healthcare Providers:https://www.[employer]pt[employer].com/sites/default/files/product/documents/Fact_Shee t_XT_Nwawumnwy_Zxgb_RQCA-NnD-3.pdfFact Sheet for Healthcare Patients:https://www.[employer].com/sites/default/files/product/ documents/Nykr_Eygwd_Ewergldz_Iwzx_UHNG-CzL-7.pdfPerforming Laboratory:[facility], [place] [id number] A1C 2020-12-16 08:19:00 Test Item Value Reference Range Interpretation Comments HEMOGLOBIN A1C (BEAKER) (test code = 8.3 % 4.3-6.1 H 368) POCT-GLUCOSE [id number] 07:56:00 Test Item Value Reference Range Interpretation Comments POC-GLUCOSE METER 178 mg/dL 70-110 H : Notified RN/MD: (FRANCISCO JAVIERNIA) (test code = TESTED AT [facility] 6796 2747) NOE [facility], [address]: Freight Breaker/Techni prabha ID = [id number] for Nalini Bonilla LACTATE DEHYDROGENASE (LDH)2020-12-16 04:24:00 Test Item Value Reference Range Interpretation Comments LACTATE DEHYDROGENASE 283 U/L 125-220 H Specim en slightly (BEAKER) (test code = hemoly zed 635) Freight Breaker ID - [id number] 04:23:00 Test Item Value Reference Range Interpretation Comments MAGNESIUM (BEAKER) 1.4 mg/dL 1.6-2.6 L Specimen slightly (test code = 627) hemolyzed Freight Breaker ID - [id number] 04:23:00 Test Item Value Reference Range Interpretation Comments PHOSPHORUS (BEAKER) 2.4 mg/dL 2.3-4.7 Specimen slightly (test code = 604) hemolyzed Freight Breaker ID - ADMINCOMPREHENSIVE METABOLIC [id number] 04:23:00 Test Item Value Reference Range Interpretation [...] S NOT APPLICABLE FOR DIALYSIS PATIEN TS. Freight Breaker ID - ADMINLIPID [id number] 04:23:00 Test Item Value Reference Range Interpretation [...] Borderline 130-159 High 160-189 Very High >=190 Freight Breaker ID - ADMINLACTIC ACID, [id number] 04:15:00 Test Item Value Reference Range Interpretation Comments LACTATE BLOOD VENOUS 1.17 mmol/L 0.50-2.20 Specime n moderately (2) (BEAKER) (test hemolyzed code = 2872) Freight Breaker ID - ADMINPOCT-GLUCOSE [id number] 04:06:00 Test Item Value Reference Range Interpretation Comments POC-GLUCOSE METER 236 mg/dL 70-110 H : TESTED A T [facility] 6720 (BEAKER) (test code = [place], 1538) [address]: Freight Breaker/Techni prabha ID = [id number] for FLAVIO DE JESUS CBC W/PLT COUNT & AUTO [id number] 04:01:00 Test Item Value Reference Range Interpretation [...] % 0-1 PERCENT (BEAKER) (test code = 2801)
[2021-09-06] MEDS ORDERED: ONDANSETRON 4 MG/2 ML VIAL ONE (22:56)
[2021-09-06] MEDS ORDERED: MORPHINE 4 MG/ML SYR ONE (22:56)
[2021-09-06] MEDS ORDERED: NA CHLORIDE 0.9% 1,000 ML ONE (22:56)
[2021-09-06 22:59] LABS: Absolute Lymphocytes (CBC) 1.6 K/uL (0.7-4.9); Basophils % 0.5 % (0-1.3); Hematocrit 43.7 % (39.6-49.0); Lymphocytes % 18.2 % (15.3-44.8); MPV 8.8 fL (7.6-11.3)
[2021-09-06 23:10] LABS: ALT/SGPT 28 U/L (12-78); AST/SGOT 15 U/L (15-37); Albumin 4.1 g/dL (3.4-5.0); Alkaline Phosphatase 75 U/L (45-117); BUN Blood Urea Nitrogen 16 mg/dL (7-18); Bicarbonate 26 mmol/L (21-32); Bilirubin Direct 0.1 mg/dL (0-0.2); Bilirubin Total 0.4 mg/dL (0.2-1.0); Glucose Level 213 mg/dL (74-106); Potassium 3.9 mmol/L (3.5-5.1); Protein, Total 8.2 g/dL (6.4-8.2); Sodium Level 137 mmol/L (136-145)
[2021-09-06 23:11] LABS: Lipase 22493 U/L (73-393)
[2021-09-06 23:21] LABS: Urine Blood Negative (Negative); Urine Glucose Negative (Negative); Urine Protein Negative (Negative); Urine Specific Gravity 1.025 (1.005-1.030); Urine pH 6.5 (5.0-7.0)
--- NOTE | 2021-09-07 01:13 | EDPHYS ---
Physician Documentation [facility] Name: Jose Kitchen Age: 71 yrs Sex: Male : 1950 Arrival Date: 09/06/2021 Time: 21:46 Bed 20 Private MD: ED Physician Dougie Cavazos HPI: 09/06 23:06 This 71 yrs old Male presents to ER via Ambulatory with complaints of mh7 Abdominal Pain. 23:06 The patient presents with abdominal pain in the left upper quadrant. Onset: The mh7 symptoms/episode began/occurred today, at 17:00. The symptoms radiate to left back. 23:06 Associated signs and symptoms: Pertinent negatives: nausea, vomiting, and diarrhea, mh7 nausea and vomiting, anorexia, blood in stools, chest pain, constipation, diarrhea, dysuria, fever, headache, hematuria, nausea, palpitations, shortness of breath, testicular pain, vomiting, vomiting blood. 23:06 The symptoms are described as intermittent, vague, waxing/waning. Modifying factors: mh7 The symptoms are alleviated by nothing, the symptoms are aggravated by touching the area. Severity of pain: At its worst the pain was moderate today, in the emergency department the pain is unchanged. The patient has experienced similar episodes in the past, a few times. Historical: - Allergies: 22:14 PENICILLINS; ld1 - PMHx: 22:14 Diabetes - NIDDM; Hypertension; GALLSTONES; Pancreatitis; ld1 - PSHx: 22:14 None; ld1 - Immunization history:: Adult Immunizations up to date, Client reports receiving the 2nd dose of the Covid vaccine. - Social history:: Smoking status: Patient denies any tobacco usage or history of. Patient/guardian denies using alcohol. ROS: 23:06 Constitutional: Negative for fever, chills, and weight loss, Eyes: Negative for injury, mh7 pain, redness, and discharge, ENT: Negative for injury, pain, and discharge, Neck: Negative for injury, pain, and swelling, Cardiovascular: Negative for chest pain, palpitations, and edema, Respiratory: Negative for shortness of breath, cough, wheezing, and pleuritic chest pain, : Negative for injury, bleeding, discharge, and swelling, MS/Extremity: Negative for injury and deformity, Skin: Negative for injury, rash, and discoloration, Neuro: Negative for headache, weakness, numbness, tingling, and seizure, Psych: Negative for depression, anxiety, suicide ideation, homicidal ideation, and hallucinations, Allergy/Immunology: Negative for hives, rash, and allergies, Endocrine: Negative for neck swelling, polydipsia, polyuria, polyphagia, and marked weight changes, Hematologic/Lymphatic: Negative for swollen nodes, abnormal bleeding, and unusual bruising. Exam: 23:06 Head/Face: Normocephalic, atraumatic. Eyes: Pupils equal round and reactive to light, mh7 extra-ocular motions intact. Lids and lashes normal. Conjunctiva and sclera are non-icteric and not injected. Cornea within normal limits. Periorbital areas with no swelling, redness, or edema. Neck: Trachea midline, no thyromegaly or masses palpated, and no cervical lymphadenopathy. Supple, full range of motion without nuchal rigidity, or vertebral point tenderness. No Meningismus. Chest/axilla: Normal chest wall appearance and motion. Nontender with no deformity. No lesions are appreciated. Cardiovascular: Regular rate and rhythm with a normal S1 and S2. No gallops, murmurs, or rubs. Normal PMI, no JVD. No pulse deficits. Respiratory: Lungs have equal breath sounds bilaterally, clear to auscultation and percussion. No rales, rhonchi or wheezes noted. No increased work of breathing, no retractions or nasal flaring. 23:06 Back: No spinal tenderness. No costovertebral tenderness. Full range of motion. Skin: Warm, dry with normal turgor. Normal color with no rashes, no lesions, and no evidence of cellulitis. MS/ Extremity: Pulses equal, no cyanosis. Neurovascular intact. Full, normal range of motion. Neuro: Awake and alert, GCS 15, oriented to person, place, time, and situation. Cranial nerves II-XII grossly intact. Motor strength 5/5 in all extremities. Sensory grossly intact. Cerebellar exam normal. Normal gait. Psych: Awake, alert, with orientation to person, place and time. Behavior, mood, and affect are within normal limits. 23:06 Constitutional: The patient appears in no acute distress, alert, awake, uncomfortable. 23:06 Abdomen/GI: Inspection: abdomen appears normal, Bowel sounds: normal, in all quadrants, Palpation: mild abdominal tenderness, in the epigastric area and left upper quadrant, mass, is not appreciated, rebound tenderness, is not appreciated, voluntary guarding, is not appreciated, involuntary guarding, is not appreciated, no appreciated organomegaly, Rectal exam: the exam is deferred, because of patient request, Indicators: McBurney's point is not tender, Dunn's sign is negative, Rovsing's sign is negative, Obturator sign is negative, Psoas sign is negative, Liver: no appreciated palpable abnormalities, Hernia: not appreciated. Vital Signs: 22:11 BP 171 / 91; Pulse 66; Resp 18; Temp 97.5(TE); Pulse Ox 99% on R/A; Weight 65.77 kg; ld1 Height 4 ft. 8 in. (142.24 cm); Pain 05/19; 09/07 00:19 BP 129 / 71; Pulse 72; Resp 16; Pulse Ox 100% on R/A; kd3 01:19 BP 122 / 62; Pulse 72; Resp 18; Pulse Ox 100% on R/A; kd3 09/06 22:11 Body Mass Index 32.51 (65.77 kg, 142.24 cm) ld1 MDM: 01:09 Differential diagnosis: bowel obstruction, cholecystitis, Cholelithiasis, mh7 diverticulitis, gastritis, gastroesophageal reflux disease, non-specific abd pain, pancreatitis, Peptic Ulcer Disease, Pyelonephritis, Ureterolithiasis, urinary tract infection. Data reviewed: vital signs, nurses notes, old medical records, lab test result(s), CBC, electrolytes, urinalysis, EKG, radiologic studies, CT scan. Data interpreted: Pulse oximetry: on room air is 100 %. Interpretation: normal. Counseling: I had a detailed discussion with the patient and/or guardian regarding: the historical points, exam findings, and any diagnostic results supporting the discharge/admit diagnosis, lab results, radiology results, the need to transfer to another facility, [facility] does not immediately have the required specialist. Response to treatment: the patient's symptoms have resolved after treatment, the patient's blood pressure is in an acceptable range, mental status has returned to baseline, the patient no longer shows bradycardia, the patient is not short of breath, the patient is not tachycardic, the patient's pain is gone, the patient's temperature has normalized. Refusal of service: The patient/guardian displays adequate decision making capability and despite a detailed discussion of alternatives, benefits, risks, and consequences refuses: Admission to the hospital for further work-up and treatment, Refused transfer and wants to leave AGAINST MEDICAL ADVICE.. 01:09 ED course: Well-appearing, no acute distress, vital signs stable, no focal neurological [facility] deficits. No abdominal pain, nausea, vomiting, diarrhea, or other complaints. Discussed all test results and findings with the patient and his son and need to transfer to another facility due to no specialist availability here. Patient declined transfer and elected to leave AGAINST MEDICAL ADVICE. Explained the possibility of permanent disability and/or if condition worsens. He verbalized that he understood this information is presented. He knows he can return to ED if any worsening of symptoms or other urgent concerns. He states he will follow-up with his doctor.. 01:12 Patient medically screened. [facility] 09/06 22:27 Order name: Basic Metabolic Panel; Complete Time: 23:11 [facility] 09/06 22:27 Order name: CBC with Diff; Complete Time: 23:11 [facility] 09/06 22:27 Order name: Hepatic Function; Complete Time: 23:11 [facility] 09/06 22:27 Order name: Lipase; Complete Time: 23:11 [facility] 09/06 23:20 Order name: Urine Dipstick-Ancillary; Complete Time: 23:27 [facility] 09/06 23:31 Order name: ETOH Level; Complete Time: 23:52 [facility] 09/06 22:27 Order name: IV Saline Lock; Complete Time: 22:49 [facility] 09/06 22:27 Order name: Labs collected and sent; Complete Time: 22:49 [facility] 09/06 22:28 Order name: EKG; Complete Time: 22:28 [facility] 09/06 23:01 Order name: CT Abd/Pelvis - IV Contrast Only [facility] 09/07 00:04 Order name: COVID-19 (Coronavirus) Document "Date of Onset" if Symptomatic [facility] 09/06 22:27 Order name: Urine Dipstick-Ancillary (obtain specimen); Complete Time: 23:26 [facility] 09/06 22:28 Order name: EKG - Nurse/Tech; Complete Time: 23:29 [facility] Administered Medications: 09/06 23:07 Drug: morphine 4 mg Route: IVP; Site: right antecubital; kd3 23:29 Follow up: Response: No adverse reaction kd3 23:07 Drug: Zofran (Ondansetron) 4 mg Route: IVP; Site: right antecubital; kd3 23:29 Follow up: Response: No adverse reaction kd3 23:07 Drug: NS 0.9% 500 ml Route: IV; Rate: bolus; Site: right antecubital; kd3 09/07 01:26 Follow up: IV Status: Completed infusion; IV Intake: 1000ml 3 Disposition Summary: 09/07/21 01:12 Left Against Medical Advice Location: Home [facility] Problem: an acute exacerbation [facility] Symptoms: have improved [facility] Condition: Stable [facility] Diagnosis - Acute on chronic pancreatitis, pancreatic pseudocyst chronic, cholelithiasis [facility] Followup: [facility] - With: Private Physician - When: 1 - 2 days - Reason: Worsening of condition, Recheck today's complaints, Continuance of care, Re-evaluation by your physician Followup: [facility] - With: Eder Cheatham MD - When: 1 - 2 days - Reason: Worsening of condition, Recheck today's complaints Discharge Instructions: - Discharge Summary Sheet [facility] - Acute Pancreatitis, [id number] [facility] - Cholelithiasis, [id number] [facility] - Chronic Pancreatitis [facility] Prescriptions: - ondansetron 4 mg Oral tablet,disintegrating - place 1 tablet by TRANSLINGUAL route every 8 hours As needed; 10 tablet; [facility] Refills: 0, Product Selection Permitted - Pepcid 20 mg Oral Tablet - take 1 tablet by ORAL route every 12 hours for 5 days; 10 tablet; Refills: 0, [facility] Product Selection Permitted - dicyclomine 20 mg Oral Tablet - take 1 tablet by ORAL route 4 times per day As needed; 20 tablet; Refills: 0, [facility] Product Selection Permitted - Tylenol-Codeine #3 300 mg-30 mg Oral - take 2 tablet by ORAL route every 6 hours As needed; 20 tablet; Refills: 0, [facility] Product Selection Permitted Signatures: Dispatcher [facility] Dougie Domínguez MD MD 7 Julieth Nation RN RN ld1 Sabas, Joan, RN RN kd3
--- NOTE | 2021-09-07 01:13 | ER ---
Nurse's Notes [facility] Name: Jose Kitchen Age: 71 yrs Sex: Male : 1950 Arrival Date: 09/06/2021 Time: 21:46 Bed 20 Private MD: Diagnosis: Acute on chronic pancreatitis, pancreatic pseudocyst chronic, cholelithiasis Presentation: 09/06 22:11 Chief complaint: Patient states: Pain in LUQ, radiates towards the back since 1700 ld1 today. Pt reports being diagnosed with pancreatitis recently, pain is similar. Coronavirus screen: At this time, the client does not indicate any symptoms associated with coronavirus-19. Ebola Screen: No symptoms or risks identified at this time. Initial Sepsis Screen: Does the patient meet any 2 criteria? No. Patient's initial sepsis screen is negative. Does the patient have a suspected source of infection? No. Patient's initial sepsis screen is negative. Risk Assessment: Do you want to hurt yourself or someone else? Patient reports no desire to harm self or others. Onset of symptoms was September 06, 2021. 22:11 Method Of Arrival: Ambulatory ld1 22:11 Acuity: DHRUV 3 ld1 Triage Assessment: 22:14 General: Appears in no apparent distress. comfortable, Behavior is calm, cooperative, ld1 appropriate for age. Pain: Complains of pain in left upper quadrant Pain radiates to mid back area Pain currently is 8 out of 10 on a pain scale. Quality of pain is described as stabbing, throbbing, Pain began gradually, Is continuous. EENT: No signs and/or symptoms were reported regarding the EENT system. Neuro: Level of Consciousness is awake, alert, obeys commands, Oriented to person, place, time, situation, Appropriate for age. Cardiovascular: Capillary refill < 3 seconds Patient's skin is warm and dry. Respiratory: Airway is patent Respiratory effort is even, unlabored, Respiratory pattern is regular, symmetrical. GI: Abdomen is round non-distended. : No signs and/or symptoms were reported regarding the genitourinary system. Derm: No signs and/or symptoms reported regarding the dermatologic system. Musculoskeletal: No signs and/or symptoms reported regarding the musculoskeletal system. Historical: - Allergies: 22:14 PENICILLINS; ld1 - PMHx: 22:14 Diabetes - NIDDM; Hypertension; GALLSTONES; Pancreatitis; ld1 - PSHx: 22:14 None; ld1 - Immunization history:: Adult Immunizations up to date, Client reports receiving the 2nd dose of the Covid vaccine. - Social history:: Smoking status: Patient denies any tobacco usage or history of. Patient/guardian denies using alcohol. Screenin/29 00:18 Abuse screen: Denies threats or abuse. Denies injuries from another. Nutritional kd3 screening: No deficits noted. Tuberculosis screening: No symptoms or risk factors identified. Fall Risk IV access (20 points). Assessment: 00:49 Reassessment: Dr Cavazos at bedside for discussion of findings and recommendations. bb 01:17 Reassessment: PT LEAVING AMA. PT VERBALIZES UNDERSTANDING OF RISKS OF LEAVING AMA. PT kd3 CURRENT VITAL SIGNS 122/68, 100% RA, HR 72. 01:24 GI: Bowel sounds present X 4 quads. Abdomen is tender to palpation in left upper kd3 quadrant. Vital Signs: 09/06 22:11 BP 171 / 91; Pulse 66; Resp 18; Temp 97.5(TE); Pulse Ox 99% on R/A; Weight 65.77 kg; ld1 Height 4 ft. 8 in. (142.24 cm); Pain 8/10; 09/07 00:19 BP 129 / 71; Pulse 72; Resp 16; Pulse Ox 100% on R/A; kd3 01:19 BP 122 / 62; Pulse 72; Resp 18; Pulse Ox 100% on R/A; kd3 09/06 22:11 Body Mass Index 32.51 (65.77 kg, 142.24 cm) ld1 ED Course: 09/06 21:46 Patient arrived in ED. bp1 22:14 Triage completed. ld1 22:14 Arm band placed on right wrist. ld1 22:18 Joan Obregon, SAMARIA is Primary Nurse. kd3 22:26 Dougie Cavazos MD is Attending Physician. mh7 22:49 Basic Metabolic Panel Sent. kd3 22:49 CBC with Diff Sent. kd3 22:49 Hepatic Function Sent. kd3 22:49 Lipase Sent. kd3 23:51 CT Abd/Pelvis - IV Contrast Only In Process Unspecified. EDMS 09/07 00:18 Patient has correct armband on for positive identification. Placed in gown. Bed in low kd3 position. Call light in reach. Side rails up X 1. 01:11 Eder Cheatham MD is Referral Physician. [facility] 01:20 No provider procedures requiring assistance completed. kd3 01:24 IV discontinued, intact, bleeding controlled, No redness/swelling at site. Pressure kd3 dressing applied. Administered Medications: 09/06 23:07 Drug: morphine 4 mg Route: IVP; Site: right antecubital; kd3 23:29 Follow up: Response: No adverse reaction kd3 23:07 Drug: Zofran (Ondansetron) 4 mg Route: IVP; Site: right antecubital; kd3 23:29 Follow up: Response: No adverse reaction kd3 23:07 Drug: NS 0.9% 500 ml Route: IV; Rate: bolus; Site: right antecubital; kd3 09/07 01:26 Follow up: IV Status: Completed infusion; IV Intake: 1000ml kd3 Intake: 01:26 IV: 1000ml; Total: 1000ml. kd3 Outcome: 01:24 Discharged to home ambulatory. kd3 01:24 Condition: stable 01:24 Discharge instructions given to patient, Instructed on medication usage, PT INSTRUCTED ON RISKS OF LEAVING AMA. PT INSTRUCTED ON MEDICATIONS. PT VERBALIZES UNDERSTANDING Demonstrated understanding of instructions, medications. 01:26 Patient left the ED. kd3 Signatures: Dispatcher [employer] EDMS Emiyl Russell RN RN bb Paniauga, Brittany bp1 Holmes, Maurice, MD MD 7 Julieth Nation RN RN 1 Joan Obregon RN RN 3
[2021-09-07 01:33] VITALS: TEMP 97.5
[2021-09-07 01:35] VITALS: O2SAT 100
[2021-09-07 01:37] VITALS: BP 122/62
--- NOTE | 2021-09-07 14:55 | RAD REPORT ---
EXAM DESCRIPTION: CT - Abdomen Pelvis W Contrast - 09/07/2021 6:40 am CLINICAL HISTORY: 71 years, Male, ABD PAIN COMPARISON: 02/06/2021 TECHNIQUE: Contrast-enhanced images of the abdomen and pelvis were performed utilizing 5 mm slice th ickness at 5 mm interval reconstruction from the lung bases to the ischial tuberosities after the adm inistration IV contrast. In addition multiplanar reformats in the coronal and sagittal plane were obtained and reviewed. This exam was performed according to our departmental dose-optimization protocol, which includes auto mated exposure control, adjustment of the mA and/or kV according to patient size and/or use of iterat ramona reconstruction technique. FINDINGS: The lung bases demonstrate minimal dependent atelectatic changes and mild elevation of the right diaphragm. The liver, spleen and adrenal glands demonstrate to be unremarkable, no focal lesions are noted. Again the gallbladder demonstrated the presence of layering high density material corresponding to ch olelithiasis. There is no evidence for abnormal gallbladder wall/or biliary duct dilatation. I was visualized and previous CT scan at the level of the pancreatic tail there is a cystic structure measuring 2.7 x 1.9 x 1.9 cm on axial image 24/87 and coronal image 42/101. Previously measured alissa ured 3.1 x 2.1 x 2.2 cm. Again there is surrounding pancreatic tail/peripancreatic fluid similar to p rior study. The proximal pancreatic duct demonstrate to be within normal limits. The distal portion o f the pancreatic duct in close proximity to this cystic structure is slightly increased in caliber me asuring approximately 3.5 mm on image 23/87. Differential diagnosis of acute on chronic pancreatitis with mildly enlarging pseudocyst, walled-off necrosis, or ductal dilatation. IPMN and cystic neoplasm are not excluded and could be further evaluated with MRI with pancreatic protocol. The kidneys demonstrate normal uptake of contrast media. No evidence for nephrolithiasis and/or hydro nephrosis. There is a upper pole left renal cyst measuring 1.2 cm on image 23. Grossly the unopacified stomach, small bowel and large bowel demonstrate to be within normal limits. There is no evidence for bowel dilatation and/or free air. The appendix is normal. There is diverti culosis within the sigmoid colon. The urinary bladder demonstrate to be unremarkable. The prostate gland is normal. The aorta demon strate minimal atheromatous plaque formation. There is no retroperitoneal lymphadenopathy. There is no evidence for ascites/or significant abnormal fluid collections. The rest of the soft tissue and b parul structures are within normal limits. Small bilateral inguinal hernias containing omentum. IMPRESSION: 2.7 x 1.9 x 1.9 cm cystic structure at the level of the pancreatic tail with surrounding pancreatic tail/peripancreatic fluid, not significantly changed. Differential diagnosis remains of a cute on chronic pancreatitis with mildly enlarging pseudocyst, walled-off necrosis, or ductal dilatat ion. IPMN and cystic neoplasm are not excluded and could be further evaluated with MRI with pancreati c protocol. Cholelithiasis. Sigmoid diverticulosis without evidence of acute diverticulitis. Small bilateral inguinal hernias containing omentum. Electronically signed by: Pedrito Escobar MD 09/07/2021 12:08 AM B[employer]ER Due to temporary technical issues with the PACS/Fluency reporting system, reports are being signed by the in house radiologist without review as a courtesy to ensure prompt reporting. The interpreting r adiologist is fully responsible for the content of the report.
== END 2021-09-07 01:26 | disposition left against medical advice (07) ==
LOC: ER 21:41
DX: K86.1 Other chronic pancreatitis (principal); K80.20 Calculus of gallbladder without cholecystitis without obstruction; K86.3 Pseudocyst of pancreas; Z88.0 Allergy status to penicillin; Z20.822 Contact with and (suspected) exposure to COVID-19; Z53.29 Procedure and treatment not carried out because of patient's decision for other reasons
CPT/HCPCS: 36415; 74177; 80048; 80076; 80320; 81003; 83690; 85025; 93005; 96361; 96374; 96375; 99283; J2405; J7030; Q9967

== ENCOUNTER 2023-07-08 16:05 | Inpatient (IN) | payer OTHER, SELFPAY ==
--- OUTSIDE RECORDS SUMMARY | 2023-07-08 16:12 | XMS REPORT | Continuity of Care Document ---
:1950 Author Organization [facility] t Address [address] [place] [address] Care Team Providers Name Role Phone No, Pcp [facility] Primary Care Physician Unavailable JAREN ESPINOSA Attending Clinician Unavailable Kanika Blanca RN Attending Clinician AVELINA VILLALOBOS Attending Clinician Unavailable Avelina Villalobos MD Attending Clinician Doctor Unassigned, [place] Attending Clinician Unavailable Anastacia Hopper Attending Clinician RIDDHI CARR Attending Clinician Unavailable Ayse Couch Attending Clinician Riddhi Carr MD Attending Clinician Anette Cornejo MD Attending Clinician ANETTE CORNEJO Attending Clinician Unavailable Briana Conley MD Attending Clinician Tami Best LVN Attending Clinician JOHN RICHARDSON Attending Clinician Unavailable Suha Wong S Attending Clinician John Richardson DO Attending Clinician Jyoti Reeder MD S Attending Clinician Jada Murcia MD Attending Clinician Michelle Reyes MD Attending Clinician MICHELLE REYES Attending Clinician Unavailable JAREN ESPINOSA Admitting Clinician Unavailable RIDDHI CARR Admitting Clinician Unavailable Bruno FUENTES, Riddhi Admitting Clinician ANETTE CORNEJO Admitting Clinician Unavailable Anette Cornejo MD Admitting Clinician JOHN RICHARDSON Admitting Clinician Unavailable John Richardson DO Admitting Clinician Jada Murcia MD Admitting Clinician JADA MURCIA Admitting Clinician Unavailable ISAIAH HWANG Admitting Clinician Unavailable Payers Payer Name Policy Type Policy Number Effective Date Expiration Date S sandra [facility] [id number] 2022 2022 EMERGENCY 00:00:00 00:00:00 MEDICAID Problems Condition Condition Condition Status Onset Resolution Last Treating Co mments Source Name Details Category Date Date Treatment Clinician Date Left lower Left lower Disease Active U nivers quadrant quadrant 9-19 [place] Abdominal Abdominal Disease Active Uni vers pain, pain, 8-04 ity [place] unspecif[place] 00 Medical abdominal abdominal Bran ch location location Pancreatic Pancreatic Disease Active U nivers mass mass 8-04 ity of 00:00: [place] 00 Medical Branch Diabetes Diabetes Disease Active Unive rs mellitus mellitus 8-04 ity of type 2 in type 2 in [place] nonobese nonobese 00 Medica l Branch Calculus Calculus Disease Active Unive rs of of 8-04 ity of gallbladde [place]bladde [place] without r without 00 Medi ailin cholecysti cholecysti Br anch tis tis without without obstructio obstructio n n Acute Acute Disease Active 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 [place] 00 [place] Pancreatit Pancreatit Disease Active [facility] is due to is due to 3-08 Luke s biliary biliary 00:00: Medical obstructio obstructio 00 Ce nter n n Allergies, Adverse Reactions, Alerts Allergy Allergy Status Severity Reaction(s) Onset Inactive Treating Comm ents Source Name Type Date Date Clinician Penicill Propensi Active Hives Univer s in ty to 2-07 ity of adverse 00:00: [place] reaction 00 Medical s Branch PENICILL DRUG Active Hives Univers IN INGREDI 2-07 ity of 00:00: [place] 00 Medical Branch Penicill Propensi Active Rash [facility] adverse 00:[facility]: Medical reaction 00 Center s LEMON Allergy Active [facility] BALM 3-08 (MIGUELINA 00:00: OFFICINA 00 LIS) PENICILL Allergy Active Low Rash [facility] INS 3-08 00:00: 00 Lemon Propensi Active Food [facility] ty to 3-08 [facility] (Miguelina adverse 00:00: for Lemon Medi ailin Officina reaction 00 Center lis) s Penicill Propensi Active Rash [facility] 3-08 [facility] adverse 00:00: Medical reaction 00 Center s Social History Social Habit Start Date Stop Date Quantity Comments Source History SDOH [facility] Alcohol Frequency Medical Center History SDOH [facility] Alcohol Std Medical Cente r Drinks History SDOH [facility] Alcohol Binge Medical Jose ter History of Cigarette Smoker Universi ty of tobacco use [facility] Exposure to 2022-07-25 2022-08-04 Not sure University SARS-CoV-2 00:00:00 01:22:00 [facility] (event) Branch Tobacco use and 2022-08-04 2022-08-04 Smokeless tobacco Un iversity of exposure 00:00:00 00:00:00 non-user [facility] Alcohol intake 2020-12-19 2020-12-19 [facility]00 of alcohol [facility] (finding) Tobacco Comment 2020-12-16 2020-12-[address] [facility] 00:00:00 00:00:00 Medical [place] Alcohol Comment 2020-12-16 2020-12-16 3X/WK [facility] 00:[facility]:00 00:00:00 Medical Center Sex [birth year] At [birth year] ALBARO Taylor 00:00:00 00:00:00 Medical Center Smoking Status Start Date Stop Date Source Ex-smoker 2022-08-04 00:00:00 2022-08-04 00:00:00 [facility] Medical Branch Medications Ordered Filled Start Stop Current Ordering Indication Dosage Frequency Signature Comments Components Source Medication Medication Date Date Medication? Clinician (SIG) Name Name metFORMIN 2021-10 Yes 500mg Take 500 Uni vers 500 mg 0-28 mg by ity of tablet 17:47: mouth at [place] [address] bedtime. Medical Branch lisinopriL 2021-10 Yes 10mg Take 10 mg U nivers 10 mg 0-28 by mouth ity of tablet 17:47: once daily [place] 48 as needed. Medical Branch metFORMIN 2021-10 Yes 500mg Take 500 Uni vers 500 mg 0-28 mg by ity of tablet 17:47: mouth at [place] [address] bedtime. Medical Branch lisinopriL 2021-10 Yes 10mg Take 10 mg U nivers 10 mg 0-28 by mouth ity of tablet 17:47: once daily [place] [address] as needed. Medical Branch metFORMIN 2021-10 Yes 500mg Take 500 Uni vers 500 mg 0-28 mg by ity of tablet 17:47: mouth at [place] 48 bedtime. Medical Branch lisinopriL 2021-10 Yes 10mg Take 10 mg U nivers 10 mg 0-28 by mouth ity of tablet 17:47: once daily [place] 48 as needed. Medical Branch metFORMIN 2021-10 Yes 500mg Take 500 Uni vers 500 mg 0-28 mg by ity of tablet 17:47: mouth at [place] 48 bedtime. Medical Branch lisinopriL 2021-10 Yes 10mg Take 10 mg U nivers 10 mg 0-28 by mouth ity of tablet 17:47: once daily [place] 48 as needed. Medical Branch metFORMIN 2021-10 Yes 500mg Take 500 Uni vers 500 mg 0-28 mg by ity of tablet 17:47: mouth at [place] 48 bedtime. Medical Branch lisinopriL 2021-10 Yes 10mg Take 10 mg U nivers 10 mg 0-28 by mouth ity of tablet 17:47: once daily [place] 48 as needed. Medical Branch metFORMIN 2021-10 Yes 500mg Take 500 Uni vers 500 mg 0-28 mg by ity of tablet 17:47: mouth at [place] 48 bedtime. Medical Branch lisinopriL 2021-10 Yes 10mg Take 10 mg U nivers 10 mg 0-28 by mouth ity of tablet 17:47: once daily [place] 48 as needed. Medical Branch metFORMIN 2021-10 Yes 500mg Take 500 Uni vers 500 mg 0-28 mg by ity of tablet 17:47: mouth at [place] 48 bedtime. Medical Branch lisinopriL 2021-10 Yes 10mg Take 10 mg U nivers 10 mg 0-28 by mouth ity of tablet 17:47: once daily [place] 48 as needed. Medical Branch metFORMIN 2021-10 Yes 500mg Take 500 Uni vers 500 mg 0-28 mg by ity of tablet 17:47: mouth at [place] 48 bedtime. Medical Branch lisinopriL 2021-10 Yes 10mg Take 10 mg U nivers 10 mg 0-28 by mouth ity of tablet 17:47: once daily [place] 48 as needed. Medical Branch metFORMIN 2021-10 Yes 500mg Take 500 Uni vers 500 mg 0-28 mg by ity of tablet 17:47: mouth at [place] 48 bedtime. Medical Branch lisinopriL 2021-10 Yes 10mg Take 10 mg U nivers 10 mg 0-28 by mouth ity of tablet 17:47: once daily [place] 48 as needed. Medical Branch ondansetron 2021-10- No [id number] 4mg Take 1 Univers 4 mg tablet 0-08-10 tablet by it y of 00:00: 04:59 mouth [place] 00 :00 every 8 Medical (eight) Branch hours as needed for Nausea and Vomiting (N/V) for up to 3 days. acetaminoph 2021-10- No [id number] 1{tbl} Take 1 U nivers en-codeine 0-28 - tablet by ity of 300-30 mg 00:00: 04:59 mouth [place] tablet 00 :00 every 4 Medical (four) Branch hours as needed for Pain (scale 4-6) for up to 3 days. Indication s: acute pain lisinopriL 2021-10 Yes 10mg 10 mg, Unive rs (PRINIVIL,Z 0-27 Oral, ity of ESTRIL) 14:00: DAILY, [place] tablet 10 00 First dose Medi ailin mg on María Branch 08/05/22 at 0900, Until Discontinu ed, Routine enoxaparin 2021-10 Yes 40mg 40 mg, Unive rs (LOVENOX) 0-26 Subcutaneo ity of injection 22:00: [place], DAILY, [place] 40 mg 00 First dose Medical on Tue Branch 08/04/22 at 1700, Until Discontinu ed, Routine Sliding 2021-10 Yes Subcutaneo [facility] ers Scale 0-26 us, TID ity of Insulin - 17:00: MEALS+HS, [place] as Lispro 00 First dose Medical (HumaLOG) + on Tue Branch Fsbg 08/04/22 Testing at 1200, Until Discontinu ed, Routine lactated 2021-10- No 1000mL at 100 [facility] ers ringers IV 0- 10- mL/hr, ity of infusion 15:15: 21:50 1,000 mL, Regino as 1,000 mL 00 :37 IV Medical Infusion, Branch CONTINUOUS , Starting on Tue08/04/22 at 1015, Until María 08/05/22 at 1650, Routine ondansetron 2021-10 Yes 4mg 4 mg, Slow Univers (ZOFRAN 0- IV Push, ity of (PF)) 14:11: Q6HPRN, [place] injection 4 36 Starting Medi ailin mg on Tue Branch 08/04/22 at 0911, Until Discontinu ed, Routine, Nausea and Vomiting (N/V) acetaminoph 2021-10 Yes 650mg 650 mg, Un maik en 0- Oral, ity of (TYLENOL) 14:11: Q6HPRN, [place] tablet 650 31 Starting Medic al mg on Tue Branch 08/04/22 at 0911, Until Discontinu ed, Routine, Pain (scale 1-3) morpHINE (4 2021-10- No 4mg 4 mg, Slow Univers mg/mL) 0-08-04 IV Push, ity of injection 4 09:15: 09:11 ONCE, 1 [place] mg 00 :00 dose, On Medical Tue Branch 08/04/22 at 0415, STAT iopamidol 2021-10- No [id number] 75mL 75 mL, U nivers (ISOVUE 0- 10- Intravenou ity o f 370-500 mL) 08:45: 08:45 s, ONCE, 1 [place] injection 00 :00 dose, On Medica l 75 mL Wed Branch 08/04/22 at 0345, Routine NaCl 0.9% 2021-10 No 1000mL at 999 Uni vers (NS) bolus 0-26 10-26 mL/hr, ity of infusion 08:00: 09:37 1,000 mL, [place] as 1,000 mL 00 :00 IV Medical Infusion, Branch ONCE, 1 dose, On Tue08/04/22 at 0300, STAT ondansetron 2021-10 No 4mg 4 mg, Slow Univers (ZOFRAN 0-26 10-26 IV Push, ity of (PF)) 07:45: 06:55 ONCE, 1 [place] injection 4 00 :00 dose, On Medi ailin mg Tue Branch 08/04/22 at 0245, HERMINIO morpHINE (4 2021-10 No 4mg 4 mg, Slow Univers mg/mL) 0-04 08-26 IV Push, ity of injection 4 07:45: 06:56 ONCE, 1 [place] mg 00 :00 dose, On Medical Wed Branch 08/04/22 at 0245, STAT metFORMIN 2021-0 Yes 500mg Take 500 Uni vers 500 mg 9-20 mg by ity of tablet 23:09: mouth at [place] [address] bedtime. Medical Branch lisinopriL 2021-0 Yes 10mg Take 10 mg U nivers 10 mg 9-20 by mouth ity of tablet 23:09: once daily [place] [address] as needed. Medical Branch metFORMIN 2021-0 Yes 500mg Take 500 Uni vers 500 mg 9-20 mg by ity of tablet 23:09: mouth at [place] [address] bedtime. Medical Branch lisinopriL 2021-0 Yes 10mg Take 10 mg U nivers 10 mg 9-20 by mouth ity of tablet 23:09: once daily [place] [address] as needed. Medical Branch metFORMIN 2021-0 Yes 500mg Take 500 Uni vers 500 mg 9-20 mg by ity of tablet 23:09: mouth at [place] [address] bedtime. Medical Branch lisinopriL 2021-0 Yes 10mg Take 10 mg U nivers 10 mg 9-20 by mouth ity of tablet 23:09: once daily [place] [address] as needed. Medical Branch lisinopriL Yes 10mg 10 mg, Unive rs (PRINIVIL,Z 06-29 Oral, ity of ESTRIL) 14:00: DAILY, [place] tablet 10 00 First dose Medi ailin mg on [facility] 06/29/22 at 0900, Until Discontinu ed, Routine KCL 2021- No 20meq 20 mEq, Univers (KLOR-CON 06-29 Oral, ity of M20) tablet 13:30: 13:25 ONCE, 1 [place] 20 mEq 00 :00 dose, On Medical [facility] 06/29/22 at 0830, Routine magnesium 2021- No 4g 4 g, IV Univ ers sulfate in 06-29 Piggyback, it y of water 4 13:30: 13:25 ONCE, 1 [place] gram/50 mL 00 :00 dose, On Medic al (8 %) IV [facility] Piggyback 4 06/29/22 at g 0830, Routine gadobenate 2021- No [id number] .2mL/kg 13.88 mL [facility] dimeglumine 06-29 (0.2 mL/kg i ty of (MULTIHANCE 03:15: 02:36 ?69.4 kg), [place] -15 mL) 00 :00 Intravenou Medica l injection s, ONCE, 1 Bran ch 13.88 mL dose, On [facility] 06/28/22 at 2215, Routine Sliding Yes Subcutaneo Univ ers Scale 06-28 us, TID ity of Insulin - 22:00: MEALS+HS, [place] Lispro 00 First dose Medical (HumaLOG) + on [facility] Fsbg 06/28/22 at Testing 1700, Until Discontinu ed, Routine enoxaparin Yes 40mg 40 mg, Unive rs (LOVENOX) 06-28 Subcutaneo ity of injection 22:00: [place], DAILY, [place] 40 mg 00 First dose Medical on [facility] 06/28/22 at 1700, Until Discontinu ed, Routine glucagon Yes 1mg 1 mg, Univers (GLUCAGEN 06-28 Intramuscu ity of DIAGNOSTIC 18:36: lar, PRN, [place] KIT) 20 Starting Medical injection 1 on [facility] mg 06/28/22 at 1336, Until Discontinu ed, HERMINIO, Blood Glucose < or = 70 mg/dL and patient is unable to swallow or has mental changes. dextrose 50 Yes 25mL 25 mL, Univ ers % in water 06-28 Slow IV ity of (D50W) 18:36: Push, PRN, [place] injection 20 Starting Medica l 25 mL on Tue Branch 06/28/22 at 1336, Until Discontinu ed, HERMINIO, Blood Glucose < or = 70 mg/dL and patient is unable to swallow or has mental status changes. lactated 2021- No 1000mL at 150 Univ ers ringers IV 06-28 mL/hr, ity of infusion 17:45: 21:24 1,000 mL, [place] as 1,000 mL 00 :45 IV Medical Infusion, Branch CONTINUOUS , Starting on Tue06/28/22 at 1245, Until Tue06/29/22 at 1624, Routine NaCl 0.9% 2021- No 1000mL at 150 Uni vers (NS) IV 06-28 mL/hr, ity of infusion 15:15: 16:35 Intravenou [place] 1,000 mL 00 :48 s, Medical CONTINUOUS Branch , Starting on Tue06/28/22 at 1015, Until Tue06/28/22 at 1135, Routine NaCl 0.9% 2021- No 1000mL at 999 Uni vers (NS) bolus 06-28 mL/hr, ity of infusion 15:00: 14:45 1,000 mL, [place] as 1,000 mL 00 :01 Intravenou Medic al s, ONCE, 1 Branch dose, On Tue06/28/22 at 1000, STAT ondansetron Yes 4mg 4 mg, Slow Univers (ZOFRAN 06-28 IV Push, ity of (PF)) 14:03: Q6HPRN, [place] injection 4 13 Starting Medi ailin mg on Tue Branch 06/28/22 at 0903, Until Discontinu ed, Routine, Nausea and Vomiting (N/V) acetaminoph Yes 650mg 650 mg, Un maik en 06-28 Oral, ity of (TYLENOL) 14:02: Q6HPRN, [place] tablet 650 31 Starting Medic al mg on [facility] 06/28/22 at 0902, Until Discontinu ed, Routine, Pain (scale 1-3) NaCl 0.9% 2021- No 1000mL at 999 Uni vers (NS) bolus 06-28 mL/hr, ity of infusion 11:30: 11:40 1,000 mL, [place] as 1,000 mL 00 :00 IV Medical Infusion, Branch ONCE, 1 dose, On [facility] 06/28/22 at 0630, STAT FENTanyl PF 2021- No 50ug 50 mcg, Un maik (SUBLIMAZE 06-28 Slow IV ity o f (PF)) 11:30: 10:37 Push, [place] injection 00 :00 ONCE, 1 Medical 50 mcg dose, On Branch [facility] 06/28/22 at 0630, HERMINIO iopamidol 2021- No [id number] 100mL 100 mL, Univers (ISOVUE 06-28 Intravenou ity o f 370-500 mL) 09:45: 08:56 s, ONCE, 1 [place] injection 00 :00 dose, On Medica l 100 mL [facility] 06/28/22 at 0445, Routine ondansetron No 4mg 4 mg, Slow Univers (ZOFRAN 06-28 IV Push, ity of (PF)) 09:00: 08:14 ONCE, 1 [place] injection 4 00 :00 dose, On Medi ailin mg [facility] 06/28/22 at 0400, HERMINIO morpHINE (4 2021- No 4mg 4 mg, Slow Univers mg/mL) 06-28 IV Push, ity of injection 4 09:00: 08:14 ONCE, 1 [place] mg 00 :00 dose, On Medical [facility] 06/28/22 at 0400, STAT metFORMIN 2021- Yes 500mg Take 500 Uni vers 500 mg 8-09 mg by ity of tablet 13:03: mouth at [place] [address] bedtime. [facility] Branch lisinopriL Yes 10mg Take 10 mg U nivers 10 mg 8-09 by mouth ity of tablet 13:03: once daily [place] [address] as needed. Medical Branch metFORMIN 2022-0 Yes 500mg Take 500 Uni vers 500 mg 8-09 mg by ity of tablet 13:03: mouth at [place] [address] bedtime. [facility] lisinopriL 2021-0 Yes 10mg Take 10 mg U nivers 10 mg 8-09 by mouth ity of tablet 13:03: once daily [place] [address] as needed. [facility] lisinopriL 2020-0 Yes 10mg QD Take [address] (PRINIVIL,Z 3-13 by mouth Luke s ESTRIL) 10 12:09: daily. Medic al MG tablet 53 [place] metFORMIN 0 Yes 500mg Take [address] [facility] (GLUCOPHAGE 3-13 mg by [facility] ) 500 MG 12:09: mouth. Medical tablet 53 [place] lisinopriL 2020-0 Yes 10mg QD Take [address] (PRINIVIL,Z 3-13 by mouth Luke s ESTRIL) 10 12:09: daily. Medic al MG tablet 53 [place] metFORMIN 0 Yes 500mg Take [address] (GLUCOPHAGE 3-13 mg by [facility] ) 500 MG 12:09: mouth. Medical tablet 53 [place] lisinopriL 0 Yes 10mg QD Take [address] (PRINIVIL,Z 3-13 by mouth Luke s ESTRIL) 10 12:09: daily. Medic al MG tablet 53 [place] metFORMIN 0 Yes 500mg Take [address] (GLUCOPHAGE 3-13 mg by [facility] ) 500 MG 12:09: mouth. Medical tablet 53 [place] lisinopriL 2020-0 Yes 10mg QD Take [address] (PRINIVIL,Z 3-13 by mouth Luke s ESTRIL) 10 12:09: daily. Medic al MG tablet 53 [place] metFORMIN 0 Yes 500mg Take [address] (GLUCOPHAGE 3-13 mg by [facility] ) 500 MG 12:09: mouth. Medical tablet 53 [place] lisinopriL 2020-0 Yes 10mg QD Take [address] (PRINIVIL,Z 3-13 by mouth Luke s ESTRIL) 10 12:09: daily. Medic al MG tablet 53 [place] metFORMIN 2020-0 Yes 500mg Take [address] (GLUCOPHAGE 3-13 mg by [facility] ) 500 MG 12:09: mouth. Medical tablet 53 [place] lisinopriL 2020-0 Yes 10mg QD Take [address] (PRINIVIL,Z 3-13 by mouth Luke s ESTRIL) 10 12:09: daily. Medic al MG tablet 53 Center metFORMIN Yes 500mg Take [address] (GLUCOPHAGE 3-13 mg by [facility] ) 500 MG 12:09: mouth. Medical tablet 53 Center Vital Signs Vital Name Observation Time Observation Value Comments Source HEIGHT 2020-12-15 22:45:00 157.5 cm WEIGHT 2020-12-15 22:45:00 74.072 kg Systolic blood 2022-11-29 16:40:00 136 mm[Hg] Univer sity of pressure [facility] Diastolic blood 2022-11-29 16:40:00 74 mm[Hg] Unive rsity of [facility] Heart rate 2022-11-29 16:40:00 74 /[facility] temperature 2022-11-29 16:40:00 36.61 Brandie [facility] Res[facility] rate 2022-11-29 16:40:00 18 /min [facility] Body height 2022-11-29 16:40:00 147.3 cm [facility] [place] [facility] Body weight 2022-11-29 16:40:00 68.584 kg [facility] BMI 2022-11-29 16:40:00 31.60 kg/m2 [facility] Oxygen saturation in 2022-11-29 16:40:00 97 /min University of Arterial blood by [facility] Pulse oximetry Branch Systolic blood 2022-08-06 20:18:00 132 mm[Hg] Univer sity of [facility] Diastolic blood 2022-08-06 20:18:00 70 mm[Hg] Unive rsity of [facility] Heart rate 2022-08-06 20:18:00 55 /min Universi ty [facility] Body temperature 2022-08-06 20:18:00 36.33 Brandie [facility] ersity [facility] Respiratory rate 2022-08-06 20:18:00 15 /min [facility] Oxygen saturation in 2022-08-06 20:18:00 98 /min University of Arterial blood by [facility] Pulse oximetry Branch Body weight 2022-08-06 08:35:00 67.495 kg Universi ty [facility] [place] [facility] BMI 2022-08-06 08:35:00 28.12 kg/m2 [facility]i ty [facility] [place] [facility] Body height 2022-08-04 10:31:00 154.9 cm Universi ty [facility] [place] [facility] Systolic blood 2022-06-30 00:25:00 136 mm[Hg] Univer sity of pressure [place] [facility] Diastolic blood 2022-06-30 00:25:00 70 mm[Hg] Unive rsity of pressure [place] [facility] Heart rate 2022-06-30 00:25:00 58 /min Universi ty [facility] [place] [facility] Body temperature 2022-06-30 00:25:00 36.5 Brandie Univ ersity of [place] [facility] Respiratory rate 2022-06-30 00:25:00 18 /min Univ ersity of [place] [facility] Oxygen saturation in 2022-06-30 00:25:00 97 /min University of Arterial blood by [facility] Pulse oximetry Branch Body height 2022-06-28 14:59:00 152.4 cm Universi ty [facility] [place] [facility] Body weight 2022-06-28 14:59:00 69.4 kg Universi ty [facility] [place] [facility] BMI 2022-06-28 14:59:00 29.88 kg/m2 [facility] [place] [facility] Systolic blood 2022-06-03 16:43:00 127 mm[Hg] Univer sity of pressure [place] [facility] Diastolic blood 2022-06-03 16:43:00 67 mm[Hg] Unive rsity of pressure [place] [facility] Heart rate 2022-06-03 16:43:00 71 /min Universi ty [facility] [place] [facility] Body temperature 2022-06-03 16:43:00 36.28 Brandie Univ ersity of [place] [facility] Respiratory rate 2022-06-03 16:43:00 18 /min Univ ersity of [place] [facility] Body height 2022-06-03 16:43:00 157.5 cm Universi ty [facility] [place] [facility] Body weight 2022-06-03 16:43:00 66.316 kg [facility]i ty [facility] [place] [facility] BMI 2022-06-03 16:43:00 26.74 kg/m2 Universi ty [facility] [place] [facility] Oxygen saturation in 2022-06-03 16:43:00 98 /min University Arterial blood by [facility] Pulse oximetry Branch HEIGHT 2020-12-15 22:45:00 157.5 cm WEIGHT 2020-12-15 22:45:00 74.072 kg Procedures Procedure Date / Time Performing Clinician Source Performed POCT GLUCOSE (AUTOMATED) 2022-08-06 16:14:00 Riddhi Carr [facility] POCT GLUCOSE (AUTOMATED) 2022-08-06 12:40:00 Riddhi Carr [facility] POCT GLUCOSE (AUTOMATED) 2022-08-06 01:17:00 Riddhi Carr [facility] POCT GLUCOSE (AUTOMATED) 2022-08-05 22:32:00 Riddhi Carr [facility] POCT GLUCOSE (AUTOMATED) 2022-08-05 16:58:00 Riddhi Carr [facility] POCT GLUCOSE (AUTOMATED) 2022-08-05 12:54:00 Riddhi Carr [facility] LIPASE 2022-08-05 07:07:00 Riddhi Carr o f [facility] COMP. METABOLIC PANEL 2022-08-05 07:07:00 Riddhi Carr [facility] ([id number]) [facility] POCT GLUCOSE (AUTOMATED) 2022-08-05 01:18:00 Riddhi Carr [facility] POCT GLUCOSE (AUTOMATED) 2022-08-04 22:29:00 Riddhi Carr [facility] CANCER ANTIGEN-GI (CA 2022-08-04 19:21:00 Kris Vivar [facility] 19-9) [facility] CARCINOEMBRYONIC ANTIGEN 2022-08-04 19:21:00 Kris Vivar [facility] GLYCOSYLATED HEMOGLOBIN 2022-08-04 19:20:00 Kris Vivar [facility] (A1C) [facility] POCT GLUCOSE (AUTOMATED) 2022-08-04 17:04:00 Riddhi Carr [facility] MRSA / MSSA SCREEN BY PCR, 2022-08-04 15:26:00 Riddhi Carr [facility] CT ABDOMEN PELVIS W 2022-08-04 08:03:51 Ayse Clinton [facility] CONTRAST Medical Branch LIPASE 2022-08-04 06:54:00 Ayse Clinton [facility] MAGNESIUM 2022-08-04 06:54:00 Ayse Clinton [facility] TROPONIN I 2022-08-04 06:54:00 Ayse Clinton [facility] COMP. METABOLIC PANEL 2022-08-04 06:54:00 Ayse Clinton [facility] ([id number]) Medical Branch CBC WITH DIFF 2022-08-04 06:54:00 Ayse Clinton [facility] URINALYSIS 2022-08-04 06:54:00 Ayse Clinton [facility] ECG ROUTINE & RHYTHM 2022-08-04 06:46:38 Ayse Clinton [facility] CONSENT/REFUSAL FOR 2022-08-04 05:57:31 Doctor Unassigned, [facility] DIAGNOSIS AND TREATMENT [place] [facility] POCT GLUCOSE (AUTOMATED) 2022-06-30 02:41:00 [facility] 2022-06-29 23:21:00 [facility]) 2022-06-29 17:57:00 [facility] ([facility]OMATED) 2022-06-29 13:47:00 [facility] 2022-06-29 11:09:00 Roger Rodrgiuez [facility] [facility] BASIC METABOLIC PANEL (NA, 2022-06-29 11:09:00 Roger Rodriguez [facility] K, CL, CO2, GLUCOSE, BUN, Medica l Branch CREATININE, CA) LIPID PANEL ([id number])(TOTAL 2022-06-29 11:09:00 Roger Rodriguez [facility] CHOLESTEROL, [facility] TRIGLYCERIDES, HDL) CBC WITH DIFF 2022-06-29 11:09:00 Roger Rodriguez [facility] MR ABDOMEN W WO CONTRAST 2022-06-29 03:01:45 Roger Rodriguez [facility] POCT GLUCOSE (AUTOMATED) 2022-06-29 01:09:00 Anette Cornejo [facility] POCT GLUCOSE (AUTOMATED) 2022-06-28 21:58:00 Anette Cornejo [facility] HEPATIC FUNCTION PANEL 2022-06-28 14:46:00 Roger Rodriguez [facility] ([id number]) (ALB,T.PRO,BILI Medical Branch T,BU/BC,ALT,AST,ALK PHOS) PROTHROMBIN TIME / INR 2022-06-28 14:46:00 Roger Rodriguez [facility] ACTIVATED PARTIAL THRMPLAS 2022-06-28 14:46:00 Roger Rodriguez [facility] MAGALIS [facility] Branch LIPASE 2022-06-28 09:28:00 Briana Conley [facility] LIPID PANEL ([id number])(TOTAL 2022-06-28 09:28:00 Briana Conley [facility] CHOLESTEROL, [facility] TRIGLYCERIDES, HDL) CT ABDOMEN PELVIS W 2022-06-28 08:57:34 Briana Conley [facility] CONTRAST [facility] COMP. METABOLIC PANEL 2022-06-28 08:12:00 Briana Conley [facility] ([id number]) Medical Branch CBC WITH DIFF 2022-06-28 08:12:00 Briana Conley [facility] URINALYSIS 2022-06-28 08:04:00 Briana Conley [facility] COVID-19 (ID NOW RAPID 2022-06-28 08:04:00 Briana Conley [facility] TESTING) Medical Branch LAB ONLY COVID 2022-06-28 08:04:00 Briana Conley [facility] INTERPRETATION [facility] CONSENT/REFUSAL FOR 2022-06-28 07:51:26 Doctor Rikki, [facility] DIAGNOSIS AND TREATMENT [place] [facility] HOSPITAL ADMISSION 2022-06-28 05:01:00 Doctor Rikki, [facility] [place] [facility] PATIENT AGREEMENTS AND 2022-06-11 05:01:00 Doctor Rikki, [facility] CONTRACTS [place] [facility] Plan of Care Planned Activity Planned Date Details Comments Source Future Scheduled 2023-06-10 Influenza Vaccine (#1) [facility] 00:[facility]:00 [code = Influenza Medical Ce nter Vaccine (#1)] Future Scheduled 2023-06-[address] [facility] 00:00:00 (Season Ended) [code = Medic al Center INFLUENZA VACCINE (Season Ended)] Future Scheduled 2023-06-[address] [facility] 00:00:00 (Season Ended) [code = Medic al Center INFLUENZA VACCINE (Season Ended)] Future Scheduled 2023-06-[address] [facility] 00:00:00 (Season Ended) [code = Medic al Center INFLUENZA VACCINE (Season Ended)] Future Scheduled 2023-06-[address] [facility] 00:00:00 (Season Ended) [code = Medic al Center INFLUENZA VACCINE (Season Ended)] Future Scheduled 2022-10-[address] [facility] 00:00:00 (12+) [code = Medical Center DEPRESSION SCREENING (12+)] Future Scheduled 2022-10-10 FALLS RISK SCREENING [facility] 00:00:00 [code = FALLS RISK Medical C enter SCREENING] Future Scheduled 2022-10-[address] [facility] 00:00:00 (12+) [code = Medical Center DEPRESSION SCREENING (12+)] Future Scheduled 2022-10-10 FALLS RISK SCREENING [facility] 00:00:00 [code = FALLS RISK Medical C enter SCREENING] Future Scheduled 2022-10-[address] [facility] 00:00:00 (12+) [code = Medical Center DEPRESSION SCREENING (12+)] Future Scheduled 2022-10-10 FALLS RISK SCREENING [facility] 00:00:00 [code = FALLS RISK Medical C enter SCREENING] Future Scheduled 2022-10-[address] [facility] 00:00:00 (12+) [code = Medical Center DEPRESSION SCREENING (12+)] Future Scheduled 2022-10-10 FALLS RISK SCREENING [facility] 00:00:00 [code = FALLS RISK Medical C enter SCREENING] Future Scheduled 2022-10-[address] [facility] 00:00:00 (12+) [code = Medical Center DEPRESSION SCREENING (12+)] Future Scheduled 2022-10-10 FALLS RISK SCREENING [facility] 00:00:00 [code = FALLS RISK Medical C enter SCREENING] Future Scheduled 2022-06-10 INFLUENZA VACCINE (#1) [facility] 00:00:00 [code = INFLUENZA Medical Ce nter VACCINE (#1)] Future Scheduled 2021-10-[address] [facility] 00:00:00 (12+) [code = Medical Center DEPRESSION SCREENING (12+)] Future Scheduled 2021-10-10 FALLS RISK SCREENING [facility] 00:00:00 [code = FALLS RISK Medical C enter SCREENING] Future Scheduled 2017 PNEUMOCOCCAL 65+ YRS ([address] [facility] 00:00:00 - PCV) [code = Medical Cente r PNEUMOCOCCAL 65+ YRS (1 - PCV)] Future Scheduled 2017 PNEUMOCOCCAL 65+ YRS ([address] [facility] 00:00:00 - PCV) [code = Medical Cente r PNEUMOCOCCAL 65+ YRS (1 - PCV)] Future Scheduled 2017 PNEUMOCOCCAL 65+ YRS ([address] [facility] 00:00:00 - PCV) [code = Medical Cente r PNEUMOCOCCAL 65+ YRS (1 - PCV)] Future Scheduled 2017 PNEUMOCOCCAL 65+ YRS ([address] [facility] 00:00:00 - PCV) [code = Medical Cente r PNEUMOCOCCAL 65+ YRS (1 - PCV)] Future Scheduled 2017 PNEUMOCOCCAL 65+ YRS ([address] [facility] 00:00:00 - PCV) [code = Medical Cente r PNEUMOCOCCAL 65+ YRS (1 - PCV)] Future Scheduled 2017 PNEUMOCOCCAL 65+ YRS ([address] [facility] 00:00:00 - PCV) [code = Medical Cente r PNEUMOCOCCAL 65+ YRS (1 - PCV)] Future Scheduled 2002 SHINGLES VACCINES ([address] [facility] 00:00:00 2) [facility] Future Scheduled 2002 SHINGLES VACCINES ([address] [facility] 00:00:00 2) [facility] Future Scheduled 2002 SHINGLES VACCINES ([address] [facility] 00:00:00 2) [code = SHINGLES Medical Center VACCINES (1 of 2)] Future Scheduled 2002 SHINGLES VACCINES ([address] [facility] 00:00:00 2) [code = SHINGLES Medical Center VACCINES (1 of 2)] Future Scheduled 2002 SHINGLES VACCINES ([address] [facility] 00:00:00 2) [code = SHINGLES Medical Center VACCINES (1 of 2)] Future Scheduled 2002 SHINGLES VACCINES ([address] [facility] 00:00:00 2) [code = SHINGLES Medical Center VACCINES (1 of 2)] Future Scheduled 1971 DTAP/TDAP/TD [facility]ACCINES [facility] 00:00:00 (1 - Tdap) [code = Medical C enter DTAP/TDAP/TD VACCINES (1 - Tdap)] Future Scheduled 1971 DTAP/TDAP/TD [facility]ACCINES [facility] 00:00:00 (1 - Tdap) [code = Medical C enter DTAP/TDAP/TD VACCINES (1 - Tdap)] Future Scheduled 1971 DTAP/TDAP/TD VACCINES [facility] 00:00:00 (1 - Tdap) [code = Medical C enter DTAP/TDAP/TD VACCINES (1 - Tdap)] Future Scheduled 1971 DTAP/TDAP/TD VACCINES [facility] 00:00:00 (1 - Tdap) [code = Medical C enter DTAP/TDAP/TD VACCINES (1 - Tdap)] Future Scheduled 1971 DTAP/TDAP/TD VACCINES [facility] 00:00:00 (1 - Tdap) [code = Medical C enter DTAP/TDAP/TD VACCINES (1 - Tdap)] Future Scheduled 1971 DTAP/TDAP/TD VACCINES [facility] 00:00:00 (1 - Tdap) [code = Medical C enter DTAP/TDAP/TD VACCINES (1 - Tdap)] Future Scheduled 1970 HEPATITIS C [facility]CRE[facility]ING [facility] 00:00:00 [code = HEPATITIS C Medical Center SCREENING] Future Scheduled 1970 HEPATITIS C [facility]CRE[facility]ING [facility] 00:00:00 [code = HEPATITIS C Medical Center SCREENING] Future Scheduled 1970 HEPATITIS C [facility]CRE[facility]ING [facility] 00:00:00 [code = HEPATITIS C Medical Center SCREENING] Future Scheduled 1970 HEPATITIS C [facility]CRE[facility]ING [facility] 00:00:00 [code = HEPATITIS C Medical Center SCREENING] Future Scheduled 1970 HEPATITIS C [facility]CRE[facility]ING [facility] 00:00:00 [code = HEPATITIS C Medical Center SCREENING] Future Scheduled 1970 HEPATITIS C [facility]CRE[facility]ING [facility] 00:00:00 [code = HEPATITIS C Medical Center SCREENING] Future Scheduled [address] [facility] 00:00:00 Counseling and Medical Cente r Screening (12+) [code = Tobacco Cessation Counseling and Screening (12+)] Future Scheduled [address] [facility] 00:00:00 Counseling and Medical Cente r Screening (12+) [code = Tobacco Cessation Counseling and Screening (12+)] Future Scheduled [address] [facility] 00:00:00 Counseling and Medical Cente r Screening (12+) [code = Tobacco Cessation Counseling and Screening (12+)] Future Scheduled [address] [facility] 00:00:00 Counseling and Medical Cente r Screening (12+) [code = Tobacco Cessation Counseling and Screening (12+)] Future Scheduled [address] [facility] 00:00:00 Counseling and Medical Cente r Screening (12+) [code = Tobacco Cessation Counseling and Screening (12+)] Future Scheduled 1953-02-25 COVID-19 VACCINE (#1) [facility] 00:00:00 [code = COVID-[address]ACCINE (#1)] Future Scheduled 1953-02-25 COVID-19 VACCINE (#1) [facility] 00:00:00 [code = COVID-[address] VACCINE (#1)] Future Scheduled 1953-02-25 COVID-19 VACCINE (#1) [facility] 00:00:00 [code = COVID-[address] VACCINE (#1)] Future Scheduled 1953-02-25 COVID-19 VACCINE (#1) [facility] 00:00:00 [code = COVID-[address] VACCINE (#1)] Future Scheduled 1953-02-25 COVID-19 VACCINE (#1) [facility] 00:00:00 [code = COVID-[address] VACCINE (#1)] Future Scheduled 1953-02-25 COVID-19 VACCINE (#1) [facility] 00:00:00 [code = COVID-[address] VACCINE (#1)] Future Scheduled 1952 CT Colonography (combo) [facility] 00:00:00 [code = CT Colonography [facility] Center (combo)] Future Scheduled 1952 Screening for malignant [facility] 00:00:00 neoplasm of colon Medical Ce nter (procedure) [code = 236667152] Future Scheduled 1952 Screening for malignant [facility] 00:00:00 neoplasm of colon Medical Ce nter (procedure) [code = 646528602] Future Scheduled 1952 Screening for malignant [facility] 00:00:00 neoplasm of colon Medical Ce nter (procedure) [code = 528854685] Future Scheduled 1952 Screening for malignant [facility] 00:00:00 neoplasm of colon Medical Ce nter (procedure) [code = 969078630] Future Scheduled 1952 Sigmoidoscopy [code = [facility] Sigmoidoscopy] Medical Cente r Future Scheduled 1952 CT Colonography (combo) [facility] 00:00:00 [code = CT Colonography [facility] Center (combo)] Future Scheduled 1952 Screening for malignant [facility] 00:00:00 neoplasm of colon Medical Ce nter (procedure) [code = 079314860] Future Scheduled 1952 Screening for malignant [facility] 00:00:00 neoplasm of colon Medical Ce nter (procedure) [code = 854451193] Future Scheduled 1952 Screening for malignant [facility] 00:00:00 neoplasm of colon Medical Ce nter (procedure) [code = 813362812] Future Scheduled 1952 Screening for malignant [facility] 00:00:00 neoplasm of colon Medical Ce nter (procedure) [code = 112700225] Future Scheduled 1952 Sigmoidoscopy [facility]code = [facility] ([facility] 00:00:00 [code = CT Colonography [facility] Center (combo)] Future Scheduled 1952 Screening for malignant [facility] 00:00:00 neoplasm of colon Medical Ce nter (procedure) [code = 153575066] Future Scheduled 1952 Screening for malignant [facility] 00:00:00 neoplasm of colon Medical Ce nter (procedure) [code = 492804314] Future Scheduled 1952 Screening for malignant [facility] 00:00:00 neoplasm of colon Medical Ce nter (procedure) [code = 115558735] Future Scheduled 1952 Screening for malignant [facility] 00:00:00 neoplasm of colon Medical Ce nter (procedure) [code = 143793756] Future Scheduled 1952 Sigmoidoscopy [code = [facility]oscopy[facility] (combo) [facility] 00:00:00 [code = CT Colonography [facility] (combo)] Future Scheduled 1952 Screening for malignant [facility] 00:00:00 neoplasm of colon Medical Ce nter (procedure) [code = 305730196] Future Scheduled 1952 Screening for malignant [facility] 00:00:00 neoplasm of colon Medical Ce nter (procedure) [code = 478094973] Future Scheduled 1952 Screening for malignant [facility] 00:00:00 neoplasm of colon Medical Ce nter (procedure) [code = 475524202] Future Scheduled 1952 Screening for malignant [facility] 00:00:00 neoplasm of colon Medical Ce nter (procedure) [code = 157601821] Future Scheduled 1952 Sigmoidoscopy [code = [facility] 00:00:[facility] Sigmoidoscopy] Medical Cente r Future Scheduled 1952 CT Colonography (combo) [facility] 00:00:00 [code = CT Colonography Medi [facility] (combo)] Future Scheduled 1952 Screening for malignant [facility] 00:00:00 neoplasm of colon Medical Ce nter (procedure) [code = 605120709] Future Scheduled 1952 Screening for malignant [facility] 00:00:00 neoplasm of colon Medical Ce nter (procedure) [code = 287194711] Future Scheduled 1952 Screening for malignant [facility] 00:00:00 neoplasm of colon Medical Ce nter (procedure) [code = 440539250] Future Scheduled 1952 Screening for malignant [facility] 00:00:00 neoplasm of colon Medical Ce nter (procedure) [code = 994589237] Future Scheduled 1952 Sigmoidoscopy [code = [facility] 00:[facility] Sigmoidoscopy] Medical Mastere r Future Scheduled 1952 CT Colonography (combo) [facility] 00:00:00 [code = CT Colonography [facility] (combo)] Future Scheduled 1952 Screening for malignant [facility] 00:00:00 neoplasm of colon Medical Ce nter (procedure) [code = 161663444] Future Scheduled 1952 Screening for malignant [facility] 00:00:00 neoplasm of colon Medical Ce nter (procedure) [code = 543480646] Future Scheduled 1952 Screening for malignant [facility] 00:00:00 neoplasm of colon Medical Ce nter (procedure) [code = 845323779] Future Scheduled 1952 Screening for malignant [facility] 00:00:00 neoplasm of colon Medical Ce nter (procedure) [code = 704282332] Future Scheduled 1952 Sigmoidoscopy [code = [facility] 00:[facility] Sigmoidoscopy] Medical Mastere r Encounters Start End Encounter Admission Attending Care Care Encounter Source Date/Time Date/Time Type Type Clinicians Facility Department ID 2021-07-18 [facility] [id number] [address] [facility] 07:01:59 JAREN MCELROY 2023-01-20 2023-01-20 Patient Kanika Blanca JADA [id number] Univers 00:00:00 00:00:00 Outreach E WOOD[place] 350.1.13.10 [place] [id number] [facility] [address] 2022-11-29 2022-11-29 Outpatient R [facility] [id number] Univers 10:30:00 11:36:31 AVELINA chen of [facility] 2022-11-29 2022-11-29 [facility] [id number] Univers 10:30:00 11:36:31 Visit Avelina HAINES 350.1.13.10 i [place] [phone] [place] dical [facility] 188 [facility] 2022-11-29 2022-11-29 Letter Doctor PEYTON 1.2.840.114 [id number] Univers 00:00:00 00:00:00 (Out) Unassigned, ZUHAIR 350.1.13.10 ity of [place] [facility] 4.2.7.2.686 Regino as [phone] [facility] 0[address] Branch 2022-11-24 2022-11-24 Patient Kanika Blanca JADA 1.2.840.114 [id number] Univers 00:00:00 00:00:00 Outreach E WOOD[place] 350.1.13.10 [place] [id number] [facility] [address] 2022-09-20 2022-09-20 Patient JADA Hopper 1.2.840.114 [id number] Univers 00:00:00 00:00:00 Outreach Anastacia E WOOD[place] 350.1.13.10 [place] [id number] [facility] [address] 2022-08-24 2022-08-24 Patient JADA Hopper 1.2.840.114 [id number] Univers 00:00:00 00:00:00 Outreach Anastacia E [place] 350.1.13.10 [place] [id number] [facility] [address] 2022-08-10 2022-08-10 Patient Kanika Blanca 1.2.840.114 [id number] Univers 00:00:00 00:00:00 Outreach E WOOD[place] 350.1.13.10 [place] [id number] [facility] [address] 2022-08-04 2022-08-06 Outpatient X RIDDHI CARR [facility] [id number] Univers 01:24:00 17:47:00 ity of [facility] 2022-08-04 2022-08-06 Emergency Ayse Clinton [facility] 1.2.840. 114 [id number] Univers 01:24:00 17:47:00 Riddhi Carr [facility] 350.1.13.10 ity of [facility] [place] [phone] [address] ([facility]) 2022-07-21 2022-07-21 Letter JANET Cornejo 1.2.840.114 [id number] Univers 00:00:00 00:00:00 (Out) Anette ZUHAIR 350.1.13.10 it y of [facility] 4.2.7.2.686 Regino as [id number] [facility] 096 Branch 2022-07-07 2022-07-07 Patient Kanika Blanca 1.2.840.114 [id number] Univers 00:00:00 00:00:00 Outreach E WOOD[place] 350.1.13.10 [place] [id number] [facility] [address] 2022-06-28 2022-06-29 Outpatient X SUMIT [facility] [id number] Univers 02:53:00 21:56:00 ANETTE ity [facility] 2022-06-28 2022-06-29 Emergency Briana Conley 1.2.840 .114 [id number] Univers 02:53:00 21:56:00 Anette CornejoY 350.1.13.10 ity of [facility] 4.2.7.2.686 Regino as [id number] [facility] 096 Branch 2022-06-11 2022-06-11 Orders Doctor PEYTON 1.2.840.114 [id number] Univers 00:00:00 00:00:00 Only Unassigned, ZUHAIR 350.1.13.10 ity of [place] [facility] 4.2.7.2.686 Regino as [id number] [facility] 009 Branch 2022-06-03 2022-06-03 [facility] [id number] Univers 11:15:00 11:43:30 AVELINA chen [facility] 2022-06-03 2022-06-03 [facility] 1.2.211.014 [id number] Univers 11:15:00 11:43:30 Visit Avelina HAINES 350.1.13.10 i ty [facility] [place] [id number] [place] dic[address] 2022-06-03 2022-06-03 Outpatient R [facility] [id number] Univers 11:15:00 11:43:30 AVELINA chen [facility] 2022-05-19 2022-05-19 Transition JADA Best 1.2.840.114 [id number] Univers 00:00:00 00:00:00 of Care Tami WOODS 350.1.13.10 [place] [id number] [facility] [address] 2022-05-13 2022-05-18 Inpatient X DYLAN GABANDAR MART[place]N [id number] Univers 16:34:00 12:30:00 JOHN chen [facility] 2022-05-13 2022-05-18 Hospital Suha Walls [facility] 1.2.840.11 [id number] Univers 16:34:00 12:30:00 Encounter John Richardson 350.1.13.10 ity [facility] 4.2.7.2.686 [facility] [id number] [facility] 081 Branch 2022-05-13 2022-05-18 Inpatient X DYLAN [facility] [id number] Univers 16:34:00 12:30:00 [facility]22-05-17 2022-05-17 [facility] 1.2.126.020 [id number] Univers 12:15:00 15:28:00 Avelina YANCY 350.1.13.10 i [facility] 4.2.7.2.686 [facility] SURGICAL [id number] [facility] 020 Branch 2021-11-16 2021-11-18 Emergency Jyoti Reeder 1.2.840 .114 [id number] Univers 21:49:00 18:03:00 Jada Murcia 350.1.13.10 ity [facility] 4.[address].7.[address] [place] [address] [id number] [facility] 094 Branch 2021-11-16 2021-11-18 [facility] [id number] Univers 21:49:00 18:03:00 [facility] Results Test Description Test Time Test Comments Results Result Comments Source POCT GLUCOSE (AUTOMATED) 2022-08-06 16:16:32 Test Item Value Reference Range Interpretation Comme nts POCT GLU (test code = 0254658224) 98 mg/dL 70-110 Lab Interpretation (test code = 35609-0) Normal [facility] GLUCOSE (AUTOMATED)2022-08-06 12:42:38 Test Item Value Reference Range Interpretation Comments POCT GLU (test code = 7375651387) 109 mg/dL 70-110 Lab Interpretation (test code = Normal 90800-7) [facility] GLUCOSE (AUTOMATED)2022-08-06 01:28:04 Test Item Value Reference Range Interpretation Comments POCT GLU (test code = 6567372329) 140 mg/dL 70-110 H Lab Interpretation (test code = Abnormal 77397-2) [facility] GLUCOSE (AUTOMATED)2022-08-05 22:34:24 Test Item Value Reference Range Interpretation Comments POCT GLU (test code = 4363500760) 92 mg/dL 70-110 Lab Interpretation (test code = Normal 11448-6) [facility] GLUCOSE (AUTOMATED)2022-08-05 17:06:20 Test Item Value Reference Range Interpretation Comments POCT GLU (test code = 169 mg/dL 70-110 H Notifi ed Provider [id number]) Lab Interpretation (test Abnormal code = 46234-8) [facility] GLUCOSE (AUTOMATED)2022-08-05 12:55:56 Test Item Value Reference Range Interpretation Comments POCT GLU (test code = 95 mg/dL 70-110 Notifi ed Provider [id number]) Lab Interpretation (test Normal code = 59219-3) [facility] Test Item Value Reference Range Interpretation Comments LIPASE (test code = 0066574334) 587 U/L 0-220 H Lab Interpretation (test code = Abnormal 72783-2) [facility] (57188)2022-08-05 07:36:24 Test Item Value Reference Range Interpretation Comments NA (test code = 138 mmol/L 135-145 8260870288) K (test code = 3.9 mmol/L 3.5-5.0 2510702909) CL (test code = 105 mmol/L 98-108 6479891005) CO2 TOTAL (test code = 27 mmol/L 23-31 8170068267) AGAP (test code = 2-16 7974721078) BUN (test code = 6 mg/dL 7-23 L 6315992354) GLUCOSE (test code = 95 mg/dL 70-110 9442149754) CREATININE (test code = 0.70 mg/dL 0.60-1.25 4791414624) TOTAL BILI (test code = 0.7 mg/dL 0.1-1.6 1744525014) CALCIUM (test code = 8.9 mg/dL 8.6-10.6 9563491094) T PROTEIN (test code = 6.2 g/dL 6.3-8.2 L 1811164053) ALBUMIN (test code = 3.6 g/dL 3.5-5.0 2897688787) ALK PHOS (test code = 43 U/L 34-122 9617293173) ALTv (test code = 25 U/L 5-50 1742-6) AST(SGOT) (test code = 24 U/L 13-40 4992321349) eGFR (test code = mL/min/1.73m2 4933946194) HUY (test code = HUY) Association of Glomerular Filtration Rate (GFR) and Staging of Kidney Disease* + --+ --+ ------+| GFR (mL/min/1.73 m2) ?| With Kidney Damage ?| ?Without Kidney Damage+ --------+ --------+ +| ?>90 ?| ?Stage one ?| ? Normal ?+ ---+ ---+ -------+| ?60-89 ?| ?Stage two ?| ? Decreased GFR ? + --+ --+ ------+| ?30-59 ?| ?Stage three ?| ? Stage three ? + --+ --+ ------+| ?15-29 ?| ?Stage four ? | ? Stage four ?+ ---+ ---+ -------+| ?<15 (or dialysis) ? ?| ?Stage five ? | ? Stage five ?+ ---+ ---+ -------+ *Each stage assumes the associated GFR level has been in effect for at least three months. ?Stages 1 to 5, with or without kidney disease, indicate chronic kidney disease. Notes: Determination of stages one and two (with eGFR >59mL/min/1.73 m2) requires estimation of kidney damage for at least three months as defined by structural or functional abnormalities of the kidney, manifested by either:Pathological abnormalities or Markers of kidney damage (including abnormalities in the composition of the blood or urine or abnormalities in imaging tests). Lab Interpretation Abnormal (test code = 66482-8) [facility] GLUCOSE (AUTOMATED)2022-08-05 01:37:33 Test Item Value Reference Range Interpretation Comments POCT GLU (test code = 2636490061) 88 mg/dL 70-110 Lab Interpretation (test code = Normal 32225-6) [facility] GLUCOSE (AUTOMATED)2022-08-04 22:31:39 Test Item Value Reference Range Interpretation Comments POCT GLU (test code = 101 mg/dL 70-110 Notifi ed Provider [id number]) Lab Interpretation (test Normal code = 64703-3) [facility] 17:07:59 Test Item Value Reference Range Interpretation Comments POCT GLU (test code = 112 mg/dL 70-110 H Notifi ed Provider [id number]) Lab Interpretation (test Abnormal code = 18474-6) [facility] Test Item Value Reference Range Interpretation Comments LIPASE (test code = 0-220 H 2635810236) HUY (test code = HUY) Delayed due to dilutions. RD Lab Interpretation (test Abnormal code = 36238-2) [facility] [id number] 07:41:23 Test Item Value Reference Interpretation Comments Range TROPONIN I (test 0.002 ng/mL See_Comment [Automated code = 6669381291) message] The system which generated this result transmitted reference range : <=0.034. The reference range was not used to interpret this result as normal/abnormal . HUY (test code = Reference (Normal) HUY) Range (defined by the 99th percentile reference limit): <= 0.034 ng/mL Note: Cardiac troponin begins to rise 3-4 hours after the onset of ischemia. Repeat in 4-6 hours if the sample was drawn within 3-4 hours of the onset of the symptom and found normal. Diagnosis of myocardial injury is made with acute changes in cTn concentrations with at least one serial sample above the 99th percentile upper reference limit (URL), taken together with the patient's clinical presentation. Biotin has been reported to cause a negative bias, interpret results relative to patient's use of biotin. Lab Interpretation Normal (test code = 45101-7) [facility] 07[facility]30:19 Test Item Value Reference Range Interpretation Comments MAGNESIUM (test code = 6862777360) 1.8 mg/dL 1.7-2.4 Lab Interpretation (test code = Normal 17468-2) [facility]OL[facility] (58974)2022-08-04 07:29:59 Test Item Value Reference Range Interpretation Comments NA (test code = 140 mmol/L 135-145 6978913305) K (test code = 3.9 mmol/L 3.5-5.0 4324407911) CL (test code = 101 mmol/L 98-108 1030986706) CO2 TOTAL (test code = 26 mmol/L 23-31 1694941717) AGAP (test code = 2-16 8038343266) BUN (test code = 12 mg/dL 7-23 3817793469) GLUCOSE (test code = 267 mg/dL 70-110 H 8184596472) CREATININE (test code = 0.74 mg/dL 0.60-1.25 2647112671) TOTAL BILI (test code = 0.4 mg/dL 0.1-1.2 1050213718) CALCIUM (test code = 9.3 mg/dL 8.6-10.6 7366551813) T PROTEIN (test code = 6.8 g/dL 6.3-8.2 1348085639) ALBUMIN (test code = 4.5 g/dL 3.5-5.0 5759314970) ALK PHOS (test code = 90 U/L 34-122 4192672301) ALTv (test code = 26 U/L 5-50 2-6) AST(SGOT) (test code = 21 U/L 13-40 1155070199) eGFR (test code = mL/min/1.73m2 8013808262) HUY (test code = HUY) Association of Glomerular Filtration Rate (GFR) and Staging of Kidney Disease* + --+ --+ ------+| GFR (mL/min/1.73 m2) ?| With Kidney Damage ?| ?Without Kidney Damage+ --------+ --------+ +| ?>90 ?| ?Stage one ?| ? Normal ?+ ---+ ---+ -------+| ?60-89 ?| ?Stage two ?| ? Decreased GFR ? + --+ --+ ------+| ?30-59 ?| ?Stage three ?| ? Stage three ? + --+ --+ ------+| ?15-29 ?| ?Stage four ? | ? Stage four ?+ ---+ ---+ -------+| ?<15 (or dialysis) ? ?| ?Stage five ? | ? Stage five ?+ ---+ ---+ -------+ *Each stage assumes the associated GFR level has been in effect for at least three months. ?Stages 1 to 5, with or without kidney disease, indicate chronic kidney disease. Notes: Determination of stages one and two (with eGFR >59mL/min/1.73 m2) requires estimation of kidney damage for at least three months as defined by structural or functional abnormalities of the kidney, manifested by either:Pathological abnormalities or Markers of kidney damage (including abnormalities in the composition of the blood or urine or abnormalities in imaging tests). Lab Interpretation Abnormal (test code = 87722-4) [facility] WITH [id number] 07:17:19 Test Item Value Reference Range Interpretation Comments WBC (test code = See_Comment [Automated 3690-2) message] The sy stem which generated this result transmitted reference range : 4.20 - 10.70 10*3/?L. The reference range was not used to interpret this result as normal/abnormal . RBC (test code = See_Comment [Automated 879-8) message] The sy stem which generated this result transmitted reference range : 4.26 - 5.52 10*6/?L. The reference range was not used to interpret this result as normal/abnormal . HGB (test code = 14.0 g/dL 12.2-16.4 718-7) HCT (test code = 40.3 % 38.4-49.3 4544-3) MCV (test code = 87.0 fL 81.7-95.6 787-2) MCH (test code = 30.2 pg 26.1-32.7 785-6) MCHC (test code = 34.7 g/dL 31.2-35.0 786-4) RDW-SD (test code = 39.6 fL 38.5-51.6 00159-4) RDW-CV (test code = 12.5 % 12.1-15.4 788-0) PLT (test code = See_Comment [Automated 777-3) message] The sy stem which generated this result transmitted reference range : 150 - 328 10*3/ ?L. The reference r taina was not used to interpret this result as normal/abnormal . MPV (test code = 10.9 fL 9.8-13.0 72880-8) NRBC/100 WBC (test See_Comment [Automat ed code = 9242285803) message] The system which generated this result transmitted reference range : 0.0 - 10.0 /100 WBCs. The refer ence range was not u sed to interpret th is result as normal/abnormal . NRBC x10^3 (test code See_Comment [Auto mated = 0807643871) message] The s ystem which generated this result transmitted reference range : 10*3/?L. The reference range was not used to interpret this result as normal/abnormal . GRAN MAT (NEUT) % 75.0 % (test code = 770-8) IMM GRAN % (test code 0.60 % = 9157072046) LYMPH % (test code = 17.6 % 736-9) MONO % (test code = 6.1 % 5905-5) EOS % (test code = 0.5 % 713-8) BASO % (test code = 0.2 % 706-2) GRAN MAT x10^3(ANC) 7.56 10*3/uL 1.99-6.95 H (test code = 3017970229) IMM GRAN x10^3 (test 0.06 10*3/uL 0.00-0.06 code = 6928559124) LYMPH x10^3 (test code 1.77 10*3/uL 1.09-3.23 = 731-0) MONO x10^3 (test code 0.61 10*3/uL 0.36-1.02 = 742-7) EOS x10^3 (test code = 0.05 10*3/uL 0.06-0.53 L 711-2) BASO x10^3 (test code 0.01-0.09 = 704-7) Lab Interpretation Abnormal (test code = 20652-3) [facility] GLUCOSE (AUTOMATED)2022-06-30 02:52:01 Test Item Value Reference Range Interpretation Comments POCT GLU (test code = 8945087646) 142 mg/dL 70-110 H Lab Interpretation (test code = Abnormal 58779-9) [facility] GLUCOSE (AUTOMATED)2022-06-29 23:22:29 Test Item Value Reference Range Interpretation Comments POCT GLU (test code = 2607085110) 182 mg/dL 70-110 H Lab Interpretation (test code = Abnormal 41620-5) [facility] GLUCOSE (AUTOMATED)2022-06-29 17:58:47 Test Item Value Reference Range Interpretation Comments POCT GLU (test code = 7293088964) 157 mg/dL 70-110 H Lab Interpretation (test code = Abnormal 29227-7) [facility] GLUCOSE (AUTOMATED)2022-06-29 13:48:15 Test Item Value Reference Range Interpretation Comments POCT GLU (test code = 4742202553) 130 mg/dL 70-110 H Lab Interpretation (test code = Abnormal 25880-3) [facility] Metabolic Panel (NA, K, CL, CO2, GLUCOSE, BUN, CREATININE, CA)2022-06-29 12:34:33 Test Item Value Reference Range Interpretation Comments NA (test code = 137 mmol/L 135-145 4423610076) K (test code = 3.8 mmol/L 3.5-5 7688695643) CL (test code = 108 mmol/L 98-108 3923875862) CO2 TOTAL (test code = 27 mmol/L 23-31 9618435029) AGAP (test code = 2-16 5152680943) BUN (test code = 4 mg/dL 7-23 L 6620218727) GLUCOSE (test code = 119 mg/dL 70-110 H 8969865701) CREATININE (test code = 0.62 mg/dL 0.6-1.25 7530580137) CALCIUM (test code = 8.6 mg/dL 8.6-10.6 0831866275) eGFR (test code = mL/min/1.73m2 3991342895) HUY (test code = HUY) Association of Glomerular Filtration Rate (GFR) and Staging of Kidney Disease* + --+ --+ ------+| GFR (mL/min/1.73 m2) ?| With Kidney Damage ?| ?Without Kidney Damage+ --------+ --------+ +| ?>90 ?| ?Stage one ?| ? Normal ?+ ---+ ---+ -------+| ?60-89 ?| ?Stage two ?| ? Decreased GFR ? + --+ --+ ------+| ?30-59 ?| ?Stage three ?| ? Stage three ? + --+ --+ ------+| ?15-29 ?| ?Stage four ? | ? Stage four ?+ ---+ ---+ -------+| ?<15 (or dialysis) ? ?| ?Stage five ? | ? Stage five ?+ ---+ ---+ -------+ *Each stage assumes the associated GFR level has been in effect for at least three months. ?Stages 1 to 5, with or without kidney disease, indicate chronic kidney disease. Notes: Determination of stages one and two (with eGFR >59mL/min/1.73 m2) requires estimation of kidney damage for at least three months as defined by structural or functional abnormalities of the kidney, manifested by either:Pathological abnormalities or Markers of kidney damage (including abnormalities in the composition of the blood or urine or abnormalities in imaging tests). Lab Interpretation Abnormal (test code = 07530-8) [facility] [id number] 12:34:33 Test Item Value Reference Range Interpretation Comments MAGNESIUM (test code = 7591994084) 1.6 mg/dL 1.7-2.4 L Lab Interpretation (test code = Abnormal 58294-8) [facility] HospitalLIPID PANEL (03725)(TOTAL CHOLESTEROL, TRIGLYCERIDES, HDL)2022-06-29 12:34:33 Test Item Value Reference Range Interpretation Comments CHOL (test code = 148 mg/dL 120-200 4218342033) HDL (test code = 37 mg/dL See_Comment L [Automated message] 9760078651) The system [employer] generated this result transmit antelmo reference range : >=40. The refer ence range was not u sed to interpret th is result as normal/abnormal . HDLC RATIO (test code = See_Comment [Au tomated message] 4951864733) The system [employer] generated this result transmit antelmo reference range : <=5.0. The refe rence range was not u sed to interpret th is result as normal/abnormal . TRIG (test code = 142 mg/dL 30-170 1741449037) LDL CHOL (test code = 83 mg/dL See_Comment [Auto mated message] 34943-3) The system [employer] generated this result transmit antelmo reference range : <=160. The refe rence range was not u sed to interpret th is result as normal/abnormal . VLDL (test code = 28 mg/dL 5-60 4770842401) Lab Interpretation (test Abnormal code = 92950-5) [facility] with [id number] 11:19:23 Test Item Value Reference Range Interpretation Comments WBC (test code = See_Comment [Automated 6690-2) message] The sy stem which generated this result transmitted reference range : 4.20 - 10.70 10*3/?L. The reference range was not used to interpret this result as normal/abnormal . RBC (test code = See_Comment [Automated 789-8) message] The sy stem which generated this result transmitted reference range : 4.26 - 5.52 10*6/?L. The reference range was not used to interpret this result as normal/abnormal . HGB (test code = 13.3 g/dL 12.2-16.4 718-7) HCT (test code = 37.0 % 38.4-49.3 L 4544-3) MCV (test code = 85.5 fL 81.7-95.6 787-2) MCH (test code = 30.7 pg 26.1-32.7 785-6) MCHC (test code = 35.9 g/dL 31.2-35 H 786-4) RDW-SD (test code = 39.5 fL 38.5-51.6 21112-0) RDW-CV (test code = 12.8 % 12.1-15.4 788-0) PLT (test code = See_Comment [Automated 777-3) message] The sy stem which generated this result transmitted reference range : 150 - 328 10*3/ ?L. The reference r taina was not used to interpret this result as normal/abnormal . MPV (test code = 10.3 fL 9.8-13 71818-8) NRBC/100 WBC (test See_Comment [Automat ed code = 7684168938) message] The system which generated this result transmitted reference range : 0.0 - 10.0 /100 WBCs. The refer ence range was not u sed to interpret th is result as normal/abnormal . NRBC x10^3 (test code See_Comment [Auto mated = 0952777265) message] The s ystem which generated this result transmitted reference range : 10*3/?L. The reference range was not used to interpret this result as normal/abnormal . GRAN MAT (NEUT) % 63.6 % (test code = 770-8) IMM GRAN % (test code 0.30 % = 2061602855) LYMPH % (test code = 24.5 % 736-9) MONO % (test code = 7.6 % 5905-5) EOS % (test code = 3.7 % 713-8) BASO % (test code = 0.3 % 706-2) GRAN MAT x10^3(ANC) 3.77 10*3/uL 1.99-6.95 (test code = 5991874670) IMM GRAN x10^3 (test 0-0.06 code = 9561116814) LYMPH x10^3 (test code 1.45 10*3/uL 1.09-3.23 = 731-0) MONO x10^3 (test code 0.45 10*3/uL 0.36-1.02 = 742-7) EOS x10^3 (test code = 0.22 10*3/uL 0.06-0.53 711-2) BASO x10^3 (test code 0.01-0.09 = 704-7) Lab Interpretation Abnormal (test code = 16788-3) [facility] GLUCOSE (AUTOMATED)2022-06-29 01:10:10 Test Item Value Reference Range Interpretation Comments POCT GLU (test code = 7882926179) 179 mg/dL 70-110 H Lab Interpretation (test code = Abnormal 49670-1) [facility] GLUCOSE (AUTOMATED)2022-06-28 21:59:58 Test Item Value Reference Range Interpretation Comments POCT GLU (test code = 2770728341) 138 mg/dL 70-110 H Lab Interpretation (test code = Abnormal 89106-6) [facility] 10:43:40 Test Item Value Reference Range Interpretation Comments LIPASE (test code = 0-220 H This is a 6087971465) corrected result. Previous result was 1,693 U/L on 06/28/2022 at 0531 CDT HUY (test code = HUY) Resulted from approximate dilution Lab Interpretation Abnormal (test code = 66032-9) [facility] (83099)(TOTAL CHOLESTEROL, TRIGLYCERIDES, HDL)2022-06-28 10:24:26 Test Item Value Reference Range Interpretation Comments CHOL (test code = 155 mg/dL 120-200 9969923287) HDL (test code = 52 mg/dL See_Comment [Automated message] 9997392647) The system [employer] generated this result transmit antelmo reference range : >=40. The refer ence range was not u sed to interpret th is result as normal/abnormal . HDLC RATIO (test code = See_Comment [Au tomated message] 5386719653) The system [employer] generated this result transmit antelmo reference range : <=5.0. The refe rence range was not u sed to interpret th is result as normal/abnormal . TRIG (test code = 68 mg/dL 30-170 6285051901) LDL CHOL (test code = 89 mg/dL See_Comment [Auto mated message] 67710-2) The system [employer] generated this result transmit antelmo reference range : <=160. The refe rence range was not u sed to interpret th is result as normal/abnormal . VLDL (test code = 14 mg/dL 5-60 6077907597) Lab Interpretation (test Normal code = 57238-1) [facility] WITH [id number] 09:17:18 Test Item Value Reference Range Interpretation Comments WBC (test code = See_Comment [Automated 1890-2) message] The sy stem which generated this result transmitted reference range : 4.20 - 10.70 10*3/?L. The reference range was not used to interpret this result as normal/abnormal . RBC (test code = See_Comment [Automated 805-8) message] The sy stem which generated this result transmitted reference range : 4.26 - 5.52 10*6/?L. The reference range was not used to interpret this result as normal/abnormal . HGB (test code = 14.0 g/dL 12.2-16.4 718-7) HCT (test code = 40.2 % 38.4-49.3 4544-3) MCV (test code = 86.8 fL 81.7-95.6 787-2) MCH (test code = 30.2 pg 26.1-32.7 785-6) MCHC (test code = 34.8 g/dL 31.2-35 786-4) RDW-SD (test code = 39.4 fL 38.5-51.6 74949-7) RDW-CV (test code = 12.6 % 12.1-15.4 788-0) PLT (test code = See_Comment [Automated 777-3) message] The sy stem which generated this result transmitted reference range : 150 - 328 10*3/ ?L. The reference r taina was not used to interpret this result as normal/abnormal . MPV (test code = 10.8 fL 9.8-13 61022-9) NRBC/100 WBC (test See_Comment [Automat ed code = 1587339963) message] The system which generated this result transmitted reference range : 0.0 - 10.0 /100 WBCs. The refer ence range was not u sed to interpret th is result as normal/abnormal . NRBC x10^3 (test code See_Comment [Auto mated = 3081767930) message] The s ystem which generated this result transmitted reference range : 10*3/?L. The reference range was not used to interpret this result as normal/abnormal . GRAN MAT (NEUT) % 73.1 % (test code = 770-8) IMM GRAN % (test code 1.00 % = 7976161176) LYMPH % (test code = 16.6 % 736-9) MONO % (test code = 7.0 % 5905-5) EOS % (test code = 2.1 % 713-8) BASO % (test code = 0.2 % 706-2) GRAN MAT x10^3(ANC) 6.35 10*3/uL 1.99-6.95 (test code = 2434137832) IMM GRAN x10^3 (test 0.09 10*3/uL 0-0.06 H code = 3289318203) LYMPH x10^3 (test code 1.44 10*3/uL 1.09-3.23 = 731-0) MONO x10^3 (test code 0.61 10*3/uL 0.36-1.02 = 742-7) EOS x10^3 (test code = 0.18 10*3/uL 0.06-0.53 711-2) BASO x10^3 (test code 0.01-0.09 = 704-7) Lab Interpretation Abnormal (test code = 62803-8) [facility]. METABOLIC PANEL (10193)2022-06-28 08:38:36 Test Item Value Reference Range Interpretation Comments NA (test code = 136 mmol/L 135-145 8081984614) K (test code = 3.8 mmol/L 3.5-5 9288489008) CL (test code = 99 mmol/L 98-108 2338877711) CO2 TOTAL (test code = 26 mmol/L 23-31 3541298902) AGAP (test code = 2-16 3789596888) BUN (test code = 11 mg/dL 7-23 1939218607) GLUCOSE (test code = 206 mg/dL 70-110 H 8373627086) CREATININE (test code = 0.70 mg/dL 0.6-1.25 6783730821) TOTAL BILI (test code = 0.5 mg/dL 0.1-1.5 9840514098) CALCIUM (test code = 9.4 mg/dL 8.6-10.6 8084303219) T PROTEIN (test code = 7.2 g/dL 6.3-8.2 3216575993) ALBUMIN (test code = 4.7 g/dL 3.5-5 8125628497) ALK PHOS (test code = 86 U/L 34-122 0003730682) ALTv (test code = 23 U/L 5-50 1742-6) AST(SGOT) (test code = 22 U/L 13-40 0489025046) eGFR (test code = mL/min/1.73m2 1566495144) HUY (test code = HUY) Association of Glomerular Filtration Rate (GFR) and Staging of Kidney Disease* + --+ --+ ------+| GFR (mL/min/1.73 m2) ?| With Kidney Damage ?| ?Without Kidney Damage+ --------+ --------+ +| ?>90 ?| ?Stage one ?| ? Normal ?+ ---+ ---+ -------+| ?60-89 ?| ?Stage two ?| ? Decreased GFR ? + --+ --+ ------+| ?30-59 ?| ?Stage three ?| ? Stage three ? + --+ --+ ------+| ?15-29 ?| ?Stage four ? | ? Stage four ?+ ---+ ---+ -------+| ?<15 (or dialysis) ? ?| ?Stage five ? | ? Stage five ?+ ---+ ---+ -------+ *Each stage assumes the associated GFR level has been in effect for at least three months. ?Stages 1 to 5, with or without kidney disease, indicate chronic kidney disease. Notes: Determination of stages one and two (with eGFR >59mL/min/1.73 m2) requires estimation of kidney damage for at least three months as defined by structural or functional abnormalities of the kidney, manifested by either:Pathological abnormalities or Markers of kidney damage (including abnormalities in the composition of the blood or urine or abnormalities in imaging tests). Lab Interpretation Abnormal (test code = 72324-9) [facility] BY [id number] 15:36:00Medical Cytology Report Case: [id number] Authorizing Provider: Viry Alexander Collected: 12/19/2020 11:25 AM MD Lucille Ordering Location: [address] Received: 12/21/2020 02:50 PM Service Pathologist: Yelena France MD Specimen: Pancreas, pancreatic cyst wall PANCREAS, CYST WALL, FNA BY CLINICIAN (CYTOSPINS AND CELL BLOCK OF ASPIRATE): - A STRIP OF COLUMNAR EPITHELIUM WITH ATYPIA, FAVOR LOW GRADE DYSPLASIA (SEE COMMENT) Signing Pathologist Direct Phone Line: [phone] signed by Yelena France MD on 12/25/2020 at 3:36 PMThe material availablefor review is scant. The cell block shows one strip of columnar epithelium with atypia and multiple strips with gastric foveolar type of lining. Some proteinaceous debris is seen in the cytospins. Mucicarmine stains some material suggestive of extracellular mucin. The overall features may be suggestive of mucinous neoplasm in an appropriate clinical setting. Clinical and radiologic correlation is ag mmended.13856, 41016; 21205Kkhicutscc cyst wall FNA PANCREAS, CYST WALL, FNAReceived 15 ml cytorich red fixative sample; prepared cell block(A2) and 4 cytospins Performed. The interpretation of this case included the use of immunohistochemistry or special stains.mucicarmineControl Slides Examined: In-h ouse known positive controls were evaluated along with the test tissue. These control slides run alongside of the patients sample show appropriate staining. Internal positive and negative controls whenavailable are evaluated Immunohistochemistry technical testing was performed at [facility], Pathology Laboratory where it was developed and [...] qualified to perform high complexity clinical laboratory testing.[facility], Department of Pathology, [address] [place] [address], [facility], Department of Pathology, [address] [place] [address], [facility], Department of [facility], [address] [place] [address], KHYL NEEDLE ASPIRATE (FNA) [id number] 16:01:00 Test Item Value Reference Range Interpretation Comments CYTOLOGY RESULT POINTER See Separate Report (BEAKER) (test code = 2629) POCT-GLUCOSE [id number] 08:14:00 Test Item Value Reference Range Interpretation Comments POC-GLUCOSE METER 174 mg/dL 70-110 H : TESTED A T [facility] 6720 (BEAKER) (test code = [facility], 1538) [address]: Director Compliance/Techni prabha ID = [id number] for JIMMY BLAKE COMPREHENSIVE METABOLIC [id number] 03:19:00 Test Item Value Reference Range Interpretation [...] 347) EGFR (BEAKER) (test 83 mL/min/1.73 ESTIMA ANTELMO GFR IS code = 1092) sq m NOT ACCURATE CREATININE CLEARANCE IN PREDICTING GLOMERULAR FILTRATION RATE . ESTIMATED GFR I S NOT APPLICABLE FOR DIALYSIS PATIEN TS. Director Compliance ID - RAKESH MPOCT-GLUCOSE [id number] 22:13:00 Test Item Value Reference Range Interpretation Comments POC-GLUCOSE METER 259 mg/dL 70-110 H : TESTED A T [facility] 6720 (BEAKER) (test code = [facility], 1538) [address]: Director Compliance/Techni prabha ID = [id number] for EV ANS, KARINE POCT-GLUCOSE [id number] 17:23:00 Test Item Value Reference Range Interpretation Comments POC-GLUCOSE METER 267 mg/dL 70-110 H : TESTED A T [facility] 6720 (BEAKER) (test code = [facility], 1538) [address]: Director Compliance/Techni prabha ID = [id number] for IB RAHIM, SERKALEM POCT-GLUCOSE [id number] 12:32:00 Test Item Value Reference Range Interpretation Comments POC-GLUCOSE METER 201 mg/dL 70-110 H : Notified RN/MD: ([facility]) (test code = TESTED AT [facility] 6720 1538) [facility], [address]: Director Compliance/Techni prabha ID = [id number] for Jeanine Muse POCT-GLUCOSE [id number] 07:47:00 Test Item Value Reference Range Interpretation Comments POC-GLUCOSE METER 210 mg/dL 70-110 H : TESTED A T [facility] 6720 ([facility]) (test code = JEANETH Martinez [facility], 1538) [address]: Director Compliance/Techni prabha ID = [id number] for IB JIMMY MADISON COMPREHENSIVE METABOLIC [id number] 04:56:00 Test Item Value Reference Range Interpretation [...] hemolyzed EGFR (BEAKER) (test 86 mL/min/1.73 ESTIMA ANTELMO GFR IS code = 1092) sq m NOT ACCURATE CREATININE CLEARANCE IN PREDICTING GLOMERULAR FILTRATION RATE . ESTIMATED GFR I S NOT APPLICABLE FOR DIALYSIS PATIEN TS. Director Compliance ID - DBPOCT-GLUCOSE [id number] 22:00:00 Test Item Value Reference Range Interpretation Comments POC-GLUCOSE METER 159 mg/dL 70-110 H : TESTED A T [facility] 6720 ([employer]) (test code = [facility], [facility]8) [address]856: Director Compliance/Techni prabha ID = [id number] for GIOVANI PEREZ FAHEEM POCT-GLUCOSE [id number] 17:49:00 Test Item Value Reference Range Interpretation Comments POC-GLUCOSE METER 282 mg/dL 70-110 H : TESTED A T [facility] 6720 ([employer]) (test code = [facility], [facility]8) 49336: Director Compliance/Techni prabha ID = [id number] for Ra mirez, Kanwal POCT-GLUCOSE [id number] 11:55:00 Test Item Value Reference Range Interpretation Comments POC-GLUCOSE METER 326 mg/dL 70-110 H : TESTED A T [facility] 6720 (BEAKER) (test code = [facility], [facility]8) 37357: Director Compliance/Techni prabha ID = [id number] for Ra mirez, Kanwal POCT-GLUCOSE [id number] 08:51:00 Test Item Value Reference Range Interpretation Comments POC-GLUCOSE METER 173 mg/dL 70-110 H : TESTED A T [facility] 6720 (BEAKER) (test code = [facility], [facility]8) 03884: Director Compliance/Techni prabha ID = [id number] for Ra mirez, Kanwal POCT-GLUCOSE [id number] 23:50:00 Test Item Value Reference Range Interpretation Comments POC-GLUCOSE METER 346 mg/dL 70-110 H : TESTED A T [facility] 6720 (BEAKER) (test code = [facility], [facility]8) [address]: Director Compliance/Techni prabha ID = [id number] for EV ANS, KARINE POCT-GLUCOSE [id number] 17:45:00 Test Item Value Reference Range Interpretation Comments POC-GLUCOSE METER 208 mg/dL 70-110 H : Notified RN/MD: (NORMAN) (test code = TESTED AT [facility] 6720 1538) [facility], [address]: Director Compliance/Techni prabha ID = [id number] for Nalini Bonilla MR, ABDOMEN, [id number] 17:00:00Unlisted Reason for Exam - Click Yes and Enter Reason Below->YesUnlisted Reason for Exam->acute pancreatitis, rule out choledocholithiasis, evaluate pancreatic tail cystDeos the patient have an implanted electronic device?->No [facility] : 1950 Sex: MFINAL REPORT TECHNIQUE: MRI of the abdomen and MRCP WITHOUT and WITH intravenous contrast. 3-D volume reconstructions were obtained to evaluate the biliary ductal system. INDICATION: 70-year-old man with epigastric pain and acute pancreatitis. COMPARISON: None. FINDINGS: LOWER THORAX: Unremarkable. LIVER: Severe decrease in signal intensity of the liver on opposed phase venkata ging, consistent with hepatic steatosis. Focal fatty sparing in segment IVB adjacent to the gallbladder fossa. BILIARY: Subcentimeter stones in the otherwise unremarkable gallbladder. Common bile duct is borderline prominent and measures up to 0.8 cm in diameter without filling defect. No intrahepaticbiliary ductal prominence.SPLEEN: No splenomegaly.PANCREAS: Pancreas enhances homogeneously. Mild edema around the pancreatic tail extends along the left anterior renal fascia. 2.2 x 3 x 3.3 cm cystic lesion in the pancreatic tail contains thin internal septations and likely communicates with the pancreatic duct; no mural nodules or wall thickening in the cystic lesion. ADRENALS: No adrenal nodule.KIDNEYS/URETERS: No hydronephrosis or mass. 1.4 x 1.5 cm cyst in the left upper pole. Subcentimeter cyst in the right interpolar region. PERITONEUM/RETROPERITONEUM: No free fluid.LYMPH NODES: No lymphadeno finesse.VESSELS: Unremarkable. GI TRACT: Susceptibility artifact in the anterior abdomen adjacent to the distal gastric body. No distention or wall thickening. Normal appendix. BONES AND SOFT TISSUES: Unremarkable. IMPRESSION:Mild edema around the pancreatic tail, suspicious for acute interstitial edematous pancreatitis. 3.3 cm septated cystic lesion in the pancreatic tail. Differential considerations include side branch intraductal papillary mucinous neoplasm (IPMN) and pseudocyst. Endoscopic ultrasound/fine-needle aspiration may be obtained for further evaluation. Alternatively, follow-up abdomen MRI/MRCP may be obtained in 6 months for reassessment. Nonspecific borderline prominence of the commonbile duct without choledocholithiasis. Cholelithiasis. Severe hepatic steatosis. Signed: Jared Freeman MDReport Verified Date/Time: 12/17/2020 17:00:30 POCT-GLUCOSE [id number] 11:57:00 Test Item Value Reference Range Interpretation Comments POC-GLUCOSE METER 270 mg/dL 70-110 H : Notified RN/MD: (NORMAN) (test code = TESTED AT [facility] 6720 1538) [facility], [address]: Director Compliance/Techni prabha ID = [id number] for Nalini Bonilla BASIC METABOLIC [id number] 06:53:00 Test Item Value Reference Range Interpretation [...] 697) EGFR (BEAKER) (test 92 mL/min/1.73 ESTIMA ANTELMO GFR IS code = 1092) sq m NOT ACCURATE CREATININE CLEARANCE IN PREDICTING GLOMERULAR FILTRATION RATE . ESTIMATED GFR I S NOT APPLICABLE FOR DIALYSIS PATIEN TS. Director Compliance ID - [id number] 06:53:00 Test Item Value Reference Range Interpretation Comments MAGNESIUM (BEAKER) (test code = 1.8 mg/dL 1.6-2.6 627) Director Compliance ID - [id number] 06:53:00 Test Item Value Reference Range Interpretation Comments PHOSPHORUS (BEAKER) (test code = 3.0 mg/dL 2.3-4.7 604) Director Compliance ID - BSHEPATIC FUNCTION [id number] 06:53:00 Test Item Value Reference Range Interpretation [...] (test code = 24 U/L 6-55 347) Director Compliance ID - BSCBC W/PLT COUNT & AUTO [id number] 06:27:00 Test Item Value Reference Range Interpretation [...] PERCENT (BEAKER) (test code = 2801) POCT-GLUCOSE [id number] 21:40:00 Test Item Value Reference Range Interpretation Comments POC-GLUCOSE METER 167 mg/dL 70-110 H : TESTED A T [facility] 6720 (BEAKER) (test code = [facility] [place], 1538) [address]: Director Compliance/Techni prabha ID = [id number] for KARINE DOW POCT-GLUCOSE [id number] 17:25:00 Test Item Value Reference Range Interpretation Comments POC-GLUCOSE METER 170 mg/dL 70-110 H : TESTED A T [facility] 6720 (NORMAN) (test code = JEANETH Martinez [facility], 1538) [address]: Director Compliance/Techni prabha ID = [id number] for Nalini Bonilla POCT-GLUCOSE [id number] 11:43:00 Test Item Value Reference Range Interpretation Comments POC-GLUCOSE METER 194 mg/dL 70-110 H : Notified RN/MD: (NORMAN) (test code = TESTED AT [facility] 6720 1538) [facility], [address]: Director Compliance/Techni prabha ID = [id number] for Nalini Bonilla SARS-COV2/RT-PCR ([facility])2020-12-16 10:31:00 Test Item Value Reference Range Interpretation Comments SARS-COV2/RT-PCR (test Negative Not Detected, Negative, code = 7429714) See external report for linked test SARS-COV-2 PERFORMING LAB [facility] (test code = 1501322) Negative result for this test determines that SARS-CoV-2 RNA was not present in the specimen above the Limit of Detection (LOD). However, Negative results do not preclude SARS-CoV-2 infection and should not be used as the sole basis for treatment or patient management decisions. Negative results must be combined with clinical observations, patient history, and [...] a nasopharyngeal swab specimen collected from individuals suspected of COVID-19 by their healthcare provider.This test [...] justifying the authorization of the emergency use ofin vitro diagnostic tests for detection and/or diagnosis of COVID-19 is terminated under Section 564(b)(2) of the Act or the EUA is revoked under Section 564(g) of the Act.Fact Sheet for Healthcare Prov iders:https://www.[employer]/sites/default/files/product/documents/Fact_Sheet_HC _Vhvpuzmlp_Vcny_MIVL-WkR-2.pdfFact Sheet for Healthcare Patients:https://www.[employer]/sites/default/files/product/docume nts/Yfjg_Ocqbd_Razbrhgk_Bahf_SPJY-FhG-8.pdfPerforming Laboratory:[address], [place] [address]HIDGQKTVMR [id number] 08:19:00 Test Item Value Reference Range Interpretation Comments HEMOGLOBIN A1C (FRANCISCO JAVIERAKER) (test code = 8.3 % 4.3-6.1 H 368) POCT-GLUCOSE [id number] 07:56:00 Test Item Value Reference Range Interpretation Comments POC-GLUCOSE METER 178 mg/dL 70-110 H : Notified RN/MD: (NORMAN) (test code = TESTED AT [facility] 6720 1538) [facility], [address]: Director Compliance/Techni prabha ID = [id number] for Nalini Bonilla LACTATE DEHYDROGENASE (LDH)2020-12-16 04:24:00 Test Item Value Reference Range Interpretation Comments LACTATE DEHYDROGENASE 283 U/L 125-220 H Specim en slightly (BEAKER) (test code = hemoly zed 635) Director Compliance ID - [id number] 04:23:00 Test Item Value Reference Range Interpretation Comments MAGNESIUM (BEAKER) 1.4 mg/dL 1.6-2.6 L Specimen slightly (test code = 627) hemolyzed Director Compliance ID - [id number] 04:23:00 Test Item Value Reference Range Interpretation Comments PHOSPHORUS (BEAKER) 2.4 mg/dL 2.3-4.7 Specimen slightly (test code = 604) hemolyzed Director Compliance ID - ADMINCOMPREHENSIVE METABOLIC [id number] 04:23:00 Test Item Value Reference Range Interpretation [...] hemolyzed EGFR (BEAKER) (test 96 mL/min/1.73 ESTIMA ANTELMO GFR IS code = 1092) sq m NOT ACCURATE CREATININE CLEARANCE IN PREDICTING GLOMERULAR FILTRATION RATE . ESTIMATED GFR I S NOT APPLICABLE FOR DIALYSIS PATIEN TS. Director Compliance ID - ADMINLIPID [id number] 04:23:00 Test Item Value Reference Range Interpretation Comments TRIGLYCERIDES (BEAKER) 102 mg/dL Speci men slightly (test code = 540) hemolyzed CHOLESTEROL (BEAKER) 162 mg/dL Specime n slightly (test code = 631) hemolyzed HDL CHOLESTEROL (BEAKER) 53 mg/dL (test code = 976) LDL CHOLESTEROL 89 mg/dL CALCULATED (BEAKER) (test code = 633) Triglyceride Reference Range: Low Risk <150 Borderline 150-199 High Risk 200- 499 Very High Risk >=500Cholesterol Reference Range: Low Risk <200 Borderline 200-239 High Risk >240HDL Cholesterol Reference Range: Low Risk >=60 High Risk <40LDL Cholesterol Reference Range: Optimal <100 Near Optimal 100-129 Borderline 130-159 High 160-189 Very High >=190 Director Compliance ID - ADMINLACTIC ACID, [id number] 04:15:00 Test Item Value Reference Range Interpretation Comments LACTATE BLOOD VENOUS 1.17 mmol/L 0.50-2.20 Specime n moderately (2) (BEAKER) (test hemolyzed code = 2872) Director Compliance ID - ADMINPOCT-GLUCOSE [id number] 04:06:00 Test Item Value Reference Range Interpretation Comments POC-GLUCOSE METER 236 mg/dL 70-110 H : TESTED A T [facility] 6720 (BEAKER) (test code = JEANETH Martinez [facility], 1538) [address]: Director Compliance/Techni prabha ID = [id number] for FLAVIO DE JESUS CBC W/PLT COUNT & AUTO [id number] 04:01:00 Test Item Value Reference Range Interpretation [...] % 0-1 PERCENT (BEAKER) (test code = 2341)"
[2023-07-08 17:19] LABS: Absolute Lymphocytes (CBC) 1.6 K/uL (0.7-4.9); Hematocrit 42.8 % (39.6-49.0); MCV 89.1 fL (80-100); MPV 8.8 fL (7.6-11.3); Platelets 215 thou/uL (152-406)
--- NOTE | 2023-07-08 17:38 | RAD REPORT ---
EXAM DESCRIPTION: CT - Stone Protocol - 07/08/2023 4:48 pm CLINICAL HISTORY: left side abdominal pain COMPARISON: Abdomen Pelvis W Contrast dated 09/06/2021; Abdomen Pelvis W Contrast dated ; Abdomen Pelvis W Contrast dated 12/15/2020 TECHNIQUE: Thin cut axial CT imaging of the abdomen and pelvis was performed without IV contrast. Mu ltiplanar reformats were generated and reviewed. All CT scans are performed using dose optimization technique as appropriate and may include automated exposure control or mA/KV adjustment according to patient size. FINDINGS: No suspicious findings in the lung bases. The liver, spleen, and adrenal glands show no suspicious findings. Fat stranding in the peripancreati c space extending from the proximal body to the tail, and a distal body/ tail intrapancreatic cysts m easuring 3.1 cm are grossly stable, although evaluation is limited in the absence of IV contrast. Gal lbladder was surgically removed. Symmetric renal contour, without suspicious parenchymal findings within limits of noncontrast techniq ue. No evidence of radiopaque calculi or hydroureteronephrosis. No dilated bowel loops or bowel wall thickening. Colonic diverticulosis. No free air, free fluid or i nflammatory stranding. Left inguinal hernia containing fat. No suspicious mass or bulky lymphadenopat hy. The urinary bladder is without significant finding. No suspicious bony findings. IMPRESSION: Overall stable peripancreatic fat stranding extending from the proximal body to the tail , with likely stable intrapancreatic 3.1 cm cyst. Findings may relate to acute on chronic pancreatiti s, although other etiologies including autoimmune pancreatitis with adjacent scarring remain on the l ist of differential considerations. Please correlate clinically and with pancreatic enzyme levels. The findings were communicated to Jeremy Ritchie on 07/08/2023 at 17:32 hours.
[2023-07-08] MEDS ORDERED: MORPHINE 4 MG/ML SYR ONE (17:42)
[2023-07-08] MEDS ORDERED: NA CHLORIDE 0.9% 250 ML ONE (17:43)
[2023-07-08] MEDS ORDERED: ONDANSETRON 4 MG/2 ML VIAL ONE (17:43)
[2023-07-08 17:46] LABS: Bilirubin Total 0.4 mg/dL (0.2-1.0); Magnesium 1.8 mg/dL (1.6-2.4); Potassium 3.7 mEq/L (3.5-5.1); Protein, Total 7.5 g/dL (6.4-8.2)
[2023-07-08 17:48] LABS: Specific Gravity 1.015 (1.005-1.030); Urine Bacteria <20 /HPF (<20); Urine Bilirubin NEGATIVE (Negative); Urine Blood Negative (Negative); Urine Clarity Clear (Clear); Urine Color Light-Yellow (Yellow); Urine Glucose 2+ (Negative); Urine Protein TRACE (Negative); Urine RBC <5 /HPF (None Seen); Urine Urobilinogen Normal (Normal); Urine pH 5.5 (5.0-7.0)
--- NOTE | 2023-07-08 18:15 | RAD REPORT ---
EXAM DESCRIPTION: Delores Single View07/08/2023 5:53 pm CLINICAL HISTORY: upper abdomen pain COMPARISON: No comparisons TECHNIQUE: Portable AP view of the chest. FINDINGS: The lungs are clear. No pneumothorax or effusion. The cardiomediastinal contours are unre markable. IMPRESSION: No acute cardiopulmonary process.
--- NOTE | 2023-07-08 18:26 | ER ---
Nurse's Notes [facility] Name: Jose Kitchen Age: 72 yrs Sex: Male : 1950 Arrival Date: 07/08/2023 Time: 16:05 Bed 18 Private MD: Diagnosis: Acute pancreatitis without necrosis or infection, unspecified Presentation: 07/08 16:25 Chief complaint: Patient states: Abdominal pain, onset about an hour ago after eating. nj1 Denies nausea and vomiting. Coronavirus screen: Vaccine status: Patient reports receiving the 2nd dose of the covid vaccine. Ebola Screen: Patient reports travel to Ebola-affected area in the 21 days before illness onset. Patient reports having traveled to: [place]. Initial Sepsis Screen: Does the patient meet any 2 criteria? No. Patient's initial sepsis screen is negative. Does the patient have a suspected source of infection? No. Patient's initial sepsis screen is negative. Risk Assessment: Do you want to hurt yourself or someone else? Patient reports no desire to harm self or others. Onset of symptoms was July 08, 2023 at 15:30. 16:25 Method Of Arrival: Ambulatory [facility] 16:25 Acuity: DHRUV 3 nj1 Historical: - Allergies: 16:27 PENICILLINS; nj1 - PMHx: 16:27 Diabetes - NIDDM; Hypertension; Pancreatitis; GALLSTONES; nj1 - PSHx: 16:27 Cholecystectomy; nj1 - Immunization history:: Client reports receiving the 2nd dose of the Covid vaccine. - Social history:: Smoking status: Patient/guardian denies using tobacco, the patient reports quitting approximately 34 years ago. Screenin:00 [facility] ED Fall Risk Assessment (Adult) History of falling in the last 3 months, rv including since admission No falls in past 3 months (0 pts). [facility] ED Fall Risk Assessment (Adult) Score/Fall Risk Level 0 - 2 = Low Risk Oriented to surroundings, Maintained a safe environment, Educated pt \T\ family on fall prevention, incl call for assistance when getting out of bed, Assessed \T\ reinforced patient's understanding of fall precautions, Provided non-skid footwear, Hourly rounding (assess needs \T\ fall precautionary measures) done, Used ambulatory aids as needed (educated on \T\ assisted with), Used gait belt as appropriate. Abuse screen: Denies threats or abuse. Denies injuries from another. Nutritional screening: No deficits noted. Tuberculosis screening: No symptoms or risk factors identified. Assessment: 19:00 General: Appears comfortable, Behavior is calm, cooperative. rv 19:00 Pain: Complains of pain in abdomen. Neuro: Level of Consciousness is awake, alert, rv obeys commands, Oriented to person, place, time, situation. Cardiovascular: Capillary refill < 3 seconds Patient's skin is warm and dry. Respiratory: Airway is patent Respiratory effort is even, unlabored. GI: Bowel sounds present X 4 quads. Abd is soft and non tender X 4 quads. Derm: Skin is intact. Vital Signs: 16:25 BP 172 / 74; Pulse 52; Resp 18; Temp 97.9(O); Pulse Ox 100% ; Weight 68.04 kg; Height 4 nj1 ft. 11 in. ; Pain 9/10; 20:30 BP 158 / 65; Pulse 62; Resp 16; Temp 98; Pulse Ox 95% on R/A; rv 16:25 Body Mass Index 30.24 (68.04 kg, 150 cm) nj1 16:25 Pain Scale: Adult nj1 [place] Coma Score: 19:00 Eye Response: spontaneous(4). Motor Response: obeys commands(6). Verbal Response: rv oriented(5). Total: 15. ED Course: 16:09 Patient arrived in ED. im 16:17 Jeremy Loyola PA is PHCP. cp 16:17 Jeremy Ritchie MD is Attending Physician. cp 16:27 Triage completed. nj1 16:29 Arm band placed on left wrist. nj1 16:50 CT Stone Protocol In Process Unspecified. EDMS 17:12 Initial lab(s) drawn, by wa, sent to lab. Inserted saline lock: 22 gauge in left iw antecubital area, using aseptic technique. Blood collected. 17:55 XRAY Chest (1 view) In Process Unspecified. EDMS 18:25 Daniel Triplett MD is Hospitalizing Provider. cp 18:36 Suzan Rock, RN is Primary Nurse. tf2 20:30 Patient has correct armband on for positive identification. Provided Education on: NPO. rv 20:30 No provider procedures requiring assistance completed. Patient admitted, IV remains in rv place. Administered Medications: 16:28 CANCELLED (Physician Discretion): morphineor iv 2 mg IVP once over 4 mins cp 17:33 Not Given (Physician Discretion): ns 0.9% 500 ml IV at 250 ml/hr continuous cp 17:39 Drug: Ondansetron IVP 4 mg IVP once; over 2 minutes Route: IVP; Site: left antecubital; iw 20:31 Follow up: Response: No adverse reaction rv 17:39 Drug: morphine IVP or IV 4 mg IVP once over 4 mins Route: IVP; Infused Over: 4 mins; iw Site: left antecubital; 20:31 Follow up: Response: No adverse reaction rv 18:45 Drug: NS 0.9% IV 1000 ml IV at 1000 ml/hr Per protocol; 1000 mL bolus Route: IV; Rate: iw 1000 ml/hr; Site: left antecubital; 20:31 Follow up: IV Status: Completed infusion; IV Intake: 1000ml rv 18:45 Drug: HYDROmorphone IVP 1 mg IVP once Route: IVP; Site: left antecubital; iw 20:31 Follow up: Response: No adverse reaction rv 19:07 Drug: NS 0.9% IV 1000 ml IV at 1000 ml once Route: IV; Rate: 1000 ml; Site: left rv antecubital; 20:30 Follow up: IV Status: Completed infusion; IV Intake: 1000ml rv 19:07 Drug: Lactated Ringers Solution IV 1000 ml IV at 150 ml/hr continuous Route: IV; Rate: rv 150 ml/hr; Site: left antecubital; 20:30 Follow up: IV Status: Infusion continued upon admission rv Medication: 19:00 VIS not applicable for this client. rv Intake: 20:30 IV: 1000ml; Total: 1000ml. rv 20:31 IV: 1000ml; Total: 2000ml. rv Outcome: 18:25 Decision to Hospitalize by Provider. cp 20:30 Admitted to Tele accompanied by nurse, via wheelchair, room 423, with chart, Report rv called to DIANA MERA 20:30 Condition: good 20:30 Instructed on the need for admit, 20:31 Patient left the ED. rv Signatures: Dispatcher [employer] Ani Camacho RN RN iw Jeremy Loyola PA PA cp Javed Ny RN RN rv Kayla Muro RN RN nj1 Rita Reinoso Traci RN RN tf2 Corrections: (The following items were deleted from the chart) 16:29 16:25 Ebola Screen: Patient denies travel to an Ebola-affected area in the 21 days nj1 before illness onset. nj1 20:30 19:00 BP 158 / 65; Pulse 62bpm; Resp 16bpm; Pulse Ox 95% RA; Temp 98F; rv rv
--- NOTE | 2023-07-08 18:26 | EDPHYS ---
Physician Documentation [facility] Name: Jose Kitchen Age: 72 yrs Sex: Male : 1950 Arrival Date: 07/08/2023 Time: 16:05 Bed 18 Private MD: ED Physician Jeremy Ritchie HPI: 07/08 16:40 This 72 yrs old Male presents to ER via Ambulatory with complaints of cp Abdominal Pain. 16:40 The patient presents with abdominal pain in the left upper quadrant, left flank. Onset: cp The symptoms/episode began/occurred 1 hour(s) ago. The symptoms radiate to left back, the left flank. Associated signs and symptoms: Pertinent positives: nausea, Pertinent negatives: blood in stools, chest pain, diarrhea, fever, vomiting. The symptoms are described as constant. Severity of pain: in the emergency department the pain is unchanged. Historical: - Allergies: 16:27 PENICILLINS; nj1 - PMHx: 16:27 Diabetes - NIDDM; Hypertension; Pancreatitis; GALLSTONES; nj1 - PSHx: 16:27 Cholecystectomy; nj1 - Immunization history:: Client reports receiving the 2nd dose of the Covid vaccine. - Social history:: Smoking status: Patient/guardian denies using tobacco, the patient reports quitting approximately 34 years ago. ROS: 16:45 Constitutional: Negative for body aches, chills, fever, poor PO intake, cp 16:45 Eyes: Negative for injury, pain, redness, and discharge, cp 16:45 ENT: Negative for drainage from ear(s), ear pain, sore throat, difficulty swallowing, difficulty handling secretions, 16:45 Cardiovascular: Negative for chest pain, edema, palpitations, 16:45 Respiratory: Negative for cough, shortness of breath, wheezing, 16:45 Abdomen/GI: Positive for abdominal pain, nausea, Negative for vomiting, diarrhea, constipation, 16:45 Back: Positive for flank pain, on the left, radiated pain, 16:45 : Negative for urinary symptoms, testicular pain 16:45 All other systems are negative, Exam: 16:50 Constitutional: The patient appears in no acute distress, alert, awake, cp non-diaphoretic, non-toxic, well developed, well nourished, in obvious pain, uncomfortable, 16:50 Head/Face: Normocephalic, atraumatic. cp 16:50 Eyes: Periorbital structures: appear normal, Conjunctiva: normal, no exudate, no injection, Sclera: no appreciated abnormality, Lids and lashes: appear normal, bilaterally, 16:50 ENT: External ear(s): are unremarkable, Nose: is normal, Mouth: Lips: moist, Oral mucosa: pink and intact, moist, Posterior pharynx: is normal, airway is patent, no erythema, no exudate, 16:50 Chest/axilla: Inspection: normal, 16:50 Cardiovascular: Rate: bradycardic, Rhythm: regular, Edema: is not appreciated, JVD: is not appreciated, 16:50 Respiratory: the patient does not display signs of respiratory distress, Respirations: normal, no use of accessory muscles, no retractions, labored breathing, is not present, Breath sounds: are clear throughout, no decreased breath sounds, no stridor, no wheezing, 16:50 Abdomen/GI: Inspection: abdomen appears normal, Bowel sounds: active, all quadrants, Palpation: soft, in all quadrants, moderate abdominal tenderness, in the epigastric area and left upper quadrant, rebound tenderness, is not appreciated, voluntary guarding, is elicited in the epigastric area and left upper quadrant, 16:50 Neuro: Orientation: to person, place \T\ time. Mentation: is normal, Motor: moves all fours, strength is normal, Vital Signs: 16:25 BP 172 / 74; Pulse 52; Resp 18; Temp 97.9(O); Pulse Ox 100% ; Weight 68.04 kg; Height 4 nj1 ft. 11 in. ; Pain 9/10; 20:30 BP 158 / 65; Pulse 62; Resp 16; Temp 98; Pulse Ox 95% on R/A; rv 16:25 Body Mass Index 30.24 (68.04 kg, 150 cm) nj1 16:25 Pain Scale: Adult nj1 [place] Coma Score: 19:00 Eye Response: spontaneous(4). Motor Response: obeys commands(6). Verbal Response: rv oriented(5). Total: 15. MDM: 16:53 Patient medically screened. cp 17:00 Differential diagnosis: bowel obstruction, diverticulitis, gastritis, non-specific abd cp pain, pancreatitis, Pyelonephritis, Ureterolithiasis, urinary tract infection. 18:25 Data reviewed: vital signs, nurses notes, lab test result(s), radiologic studies, CT cp scan. 18:25 Management of patient was discussed with the following: Hospitalist: Boby Feldman NP cp will admit after discussion. I considered the following discharge prescriptions or medication management in the emergency department Medications were administered in the Emergency Department. See MAR. Care significantly affected by the following chronic conditions: Diabetes, Hypertension. Counseling: I had a detailed discussion with the patient and/or guardian regarding the historical points, exam findings, and any diagnostic results supporting the discharge/admit diagnosis, lab results, radiology results, the need for further work-up and treatment in the hospital. 07/08 16:26 Order name: CBC with Diff; Complete Time: 17:32 07/08 17:32 Interpretation: Normal except: WBC 12.10; THANIA% 81.0; LYM% 13.0; NEUT A 9.8. 07/08 16:26 Order name: CMP; Complete Time: 18:22 07/08 18:22 Interpretation: Normal except: GLUC 289; CRE 1.34; GFR 57; AST 14. 07/08 16:26 Order name: Lipase; Complete Time: 18:22 07/08 18:22 Interpretation: Abnormal: LIP 4841. 07/08 16:26 Order name: Urinalysis w/ reflexes; Complete Time: 18:22 07/08 16:28 Order name: Magnesium; Complete Time: 18:22 07/08 17:33 Order name: Lactate w/ 2H reflex if indic. 07/08 17:33 Order name: Blood Culture Adult (2) 07/08 18:23 Order name: Lipid Profile; Complete Time: 19:20 la1 07/08 16:26 Order name: CT Stone Protocol; Complete Time: 17:41 07/08 17:40 Order name: XRAY Chest (1 view); Complete Time: 18:22 07/08 16:26 Order name: IV Saline Lock; Complete Time: 17:12 07/08 16:26 Order name: Labs collected and sent; Complete Time: 17:12 cp Administered Medications: 16:28 CANCELLED (Physician Discretion): morphineor iv 2 mg IVP once over 4 mins cp 17:33 Not Given (Physician Discretion): ns 0.9% 500 ml IV at 250 ml/hr continuous cp 17:39 Drug: Ondansetron IVP 4 mg IVP once; over 2 minutes Route: IVP; Site: left antecubital; iw 20:31 Follow up: Response: No adverse reaction rv 17:39 Drug: morphine IVP or IV 4 mg IVP once over 4 mins Route: IVP; Infused Over: 4 mins; iw Site: left antecubital; 20:31 Follow up: Response: No adverse reaction rv 18:45 Drug: NS 0.9% IV 1000 ml IV at 1000 ml/hr Per protocol; 1000 mL bolus Route: IV; Rate: iw 1000 ml/hr; Site: left antecubital; 20:31 Follow up: IV Status: Completed infusion; IV Intake: 1000ml rv 18:45 Drug: HYDROmorphone IVP 1 mg IVP once Route: IVP; Site: left antecubital; iw 20:31 Follow up: Response: No adverse reaction rv 19:07 Drug: NS 0.9% IV 1000 ml IV at 1000 ml once Route: IV; Rate: 1000 ml; Site: left rv antecubital; 20:30 Follow up: IV Status: Completed infusion; IV Intake: 1000ml rv 19:07 Drug: Lactated Ringers Solution IV 1000 ml IV at 150 ml/hr continuous Route: IV; Rate: rv 150 ml/hr; Site: left antecubital; 20:30 Follow up: IV Status: Infusion continued upon admission rv Disposition Summary: 07/08/23 18:25 Hospitalization Ordered Notes: Hospitalization Status: Inpatient Admission cp Provider: Daniel Triplett cp [facility] cp Condition: Stable cp Problem: new cp Symptoms: have improved cp Bed/Room Type: Standard cp Room Assignment: 422(07/08/23 20:07) cg Diagnosis - Acute pancreatitis without necrosis or infection, unspecified cp Forms: - Medication Reconciliation Form cp - SBAR form cp - Leadership Thank You Letter cp Signatures: Dispatcher [employer] Ani Camacho RN RN iw Boby Feldman FNP-C INBOUND CUSTOMER SERVICE REPRESENTATIVE-Cla1 Jeremy Loyola PA PA cp Garcia, Cindy, RN RN cg Javed Ny RN RN Kayla Muro RN RN nj1 Corrections: (The following items were deleted from the chart) 16:28 16:28 morphine IVP or IV 2 mg IVP once over 4 mins ordered. cp cp 19:48 18:25 cp cg 20:07 19:48 [facility] cg cg
[2023-07-08] MEDS ORDERED: NA CHLORIDE 0.9% 1,000 ML ONE (18:44)
[2023-07-08] MEDS ORDERED: HYDROMORPHONE HCL 1 MG/ML INJ ONE (18:44)
[2023-07-08] MEDS ORDERED: Ringers Lactate 1,000 ML IV ONE (19:10)
--- NOTE | 2023-07-08 19:49 | P.HP ---
Certification for Inpatient Patient admitted to: Inpatient With expected LOS: >2 Midnights Patient will require the following post-hospital care: None Practitioner: I am a practitioner with admitting privileges, knowledge of patient current condition, hospital course, and medical plan of care. Services: Services provided to patient in accordance with Admission requirements found in Title 42 Section 412.3 of the Code of Federal Regulations Patient History Date of Service: 07/08/23 Reason for admission: Acute pancreatitis History of Present Illness: 72-year-old male with history of lni-beceqdv-kdyomwfve diabetes, hypertension, pancreatitis presents the emergency department for epigastric pain which began around 1500 today. He is at multiple episodes of pancreatitis in the past approximately 4 total last episode was a few months ago. He has previously had a cholecystectomy, he is not a drinker. He is evaluated in the emergency department his labs are significant for white blood cell count 12.1 creatinine 1.34 GFR 57 glucose 289 lipase 4841 lipid panel including triglyceride levels are normal. CT abdomen pelvis with IV contrast was performed which revealed stable peripancreatic fat stranding extending from the proximal body to the tail, with likely stable intrapancreatic 3.1 cm cyst. Findings may relate to acute on chronic pancreatitis, although other etiologies including autoimmune pancreatitis with adjacent scarring remain on the list of differential considerations. Patient given IV fluids and pain medications in the ED, will need to be admitted for acute pancreatitis. - Past Medical/Surgical History -: Ykt-mzvdnah-nnnizftcq diabetes -: Hypertension -: Cholecystectomy Psychosocial/ Personal History: Lives at home with family - Family History Family History: Reviewed- Non-Contributory - Social History Smoking Status: Never smoker Alcohol use: No CD- Drugs: No Caffeine use: Yes Place of Residence: Home Review of Systems 10-point ROS is otherwise unremarkable Gastrointestinal: Nausea, Abdominal Pain Physical Examination - Physical Exam General: Alert, In no apparent distress, Oriented x3 HEENT: Atraumatic, PERRLA, Mucous membr. moist/pink, EOMI, Sclerae nonicteric Neck: Supple, 2+ carotid pulse no bruit, No LAD, Without JVD or thyroid abnormality Respiratory: Clear to auscultation bilaterally, Normal air movement Cardiovascular: Regular rate/rhythm, Normal S1 S2 Gastrointestinal: Normal bowel sounds, Tenderness (Moderate epigastric tenderness) Musculoskeletal: No tenderness Integumentary: No rashes Neurological: Normal gait, Normal speech, Normal strength at 5/5 x4 extr, Normal tone, Normal affect Lymphatics: No axilla or inguinal lymphadenopathy - Studies Laboratory Data (last 24 hrs) 07/08/23 07/08/23 07/08/23 17:09 17:09 17:09 WBC 12.10 H Hgb 14.4 Hct 42.8 Plt Count 215 Sodium 139 Potassium 3.7 BUN 12 Creatinine 1.34 H Glucose 289 H Magnesium 1.8 Total Bilirubin 0.4 AST 14 L ALT 25 Alkaline Phosphatase 76 Triglycerides 146 Cholesterol 169 HDL Cholesterol 52 Cholesterol/HDL Ratio 3.25 Lipase 4841 H Assessment and Plan - Plan Assessment: Acute pancreatitis Diabetes mellitus type 7svi-tsxkwmt-ktxxppaea Hypertension Plan: Acute pancreatitis N.p.o., IVF, as needed pain medications. Has had previous cholecystectomy, triglyceride level normal, not a drinker. Continue supportive measures. Diabetes mellitus type 1dpi-zkeodas-gzmekhuvd Every 6 hours Accu-Chek, sliding scale insulin. A1c in the morning. Hypertension Hold oral medications, restart when appropriate. DVT PPX: Lovenox Code status: Full Discharge Plan: Home Plan to discharge in: Greater than 2 days - Advance Directives Does patient have a Living Will: No Does patient have a Durable POA for Healthcare: No - Code Status/Comfort Care Code Status Assessed: Yes (Full code) Critical Care: No Time Spent Managing Pts Care (In Minutes): 55
[2023-07-08 21:12] VITALS: BMI 26.7
[2023-07-08] MEDS ORDERED: D50W 25 GM/50 ML SYRINGE IV PRN (21:14)
[2023-07-08] MEDS ORDERED: GLUCAGON 1 MG/VIAL IM PRN (21:14)
[2023-07-08] MEDS ORDERED: ONDANSETRON 4 MG/2 ML VIAL IV PRN (21:14)
[2023-07-08] MEDS ORDERED: D10W 125 ML IV PRN (21:40)
[2023-07-08] MEDS: Ringers Lactate 1,000 ML IV SCH (21:52)
[2023-07-08] MEDS: HYDROMORPHONE HCL 1 MG/ML INJ IV PRN (22:49)
[2023-07-09 00:52] LABS: Specific Gravity 1.012 (1.005-1.030); Urine Bilirubin NEGATIVE (Negative); Urine Blood Negative (Negative); Urine Clarity Clear (Clear); Urine Color Colorless (Yellow); Urine Glucose 4+ (Over) (Negative); Urine Protein NEGATIVE (Negative); Urine Urobilinogen Normal (Normal)
[2023-07-09] MEDS: INSULIN -REGULAR HUMAN 50 UNIT/0.5 ML ML SQ SCH ×4 (01:42→16:42)
[2023-07-09 02:19] LABS: Absolute Lymphocytes (CBC) 0.8 K/uL (0.7-4.9); Hematocrit 39.7 % (39.6-49.0); Lymphocytes % 5.4 % (15.3-44.8); MPV 8.8 fL (7.6-11.3); Platelets 183 thou/uL (152-406)
[2023-07-09 02:47] LABS: Albumin 3.5 g/dL (3.4-5.0); Bilirubin Total 0.6 mg/dL (0.2-1.0); Protein, Total 6.8 g/dL (6.4-8.2)
[2023-07-09] MEDS: Ringers Lactate 1,000 ML IV SCH ×5 (03:49→23:54)
[2023-07-09] MEDS: HYDROMORPHONE HCL 1 MG/ML INJ IV PRN ×4 (03:49→21:50)
[2023-07-09] MEDS: HYDRALAZINE HCL 20 MG/ML VIAL IV PRN (06:17)
[2023-07-09] MEDS: ENOXAPARIN 40 MG/0.4 ML SQ SCH (07:53)
--- NOTE | 2023-07-09 11:58 | P.PN ---
Subjective Date of Service: 07/09/23 Chief Complaint: Acute pancreatitis Patient is 72 years of age admitted with acute on chronic pancreatitis is a history of pancreatitis complains of mid abdominal pain Review of Systems Unremarkable Physical Examination - Vital Signs Temperature: 98.3 F Blood Pressure: 137/62 Pulse: 88 Respirations: 18 Pulse Ox (%): 94 - Physical Exam General: Alert, Oriented x3, Mild distress Neck: Supple Respiratory: Clear to auscultation bilaterally Cardiovascular: No edema, Regular rate/rhythm Gastrointestinal: Tenderness (Patient has mild periumbilical tenderness mild rebound) - Studies Laboratory Data (last 24 hrs) 07/08/23 07/08/23 07/08/23 17:09 17:09 17:09 WBC 12.10 H Hgb 14.4 Hct 42.8 Plt Count 215 Sodium 139 Potassium 3.7 BUN 12 Creatinine 1.34 H Glucose 289 H Magnesium 1.8 Total Bilirubin 0.4 AST 14 L ALT 25 Alkaline Phosphatase 76 Triglycerides 146 Cholesterol 169 HDL Cholesterol 52 Cholesterol/HDL Ratio 3.25 Lipase 4841 H Assessment And Plan - Current Problems (Diagnosis) (1) Pancreatitis Current Visit: Yes Status: Acute Plan: Patient is 72 years of age admitted with acute pancreatitis CT findings as detailed below/lipase and are both elevated Overall stable peripancreatic fat stranding extending from the proximal body to the tail, with likely stable intrapancreatic 3.1 cm cyst. Findings may relate to acute on chronic pancreatitis, although other etiologies including autoimmune pancreatitis with adjacent scarring remain on the list of differential considerations. Please correlate clinically and with pancreatic enzyme levels. Patient has had multiple episodes of pancreatitis status postcholecystectomy Continue with pain relief IV fluids start some liquids and soft diet as tolerated also order an MRCP Qualifiers: Chronicity: acute Pancreatitis type: idiopathic
[2023-07-10] MEDS: HYDROMORPHONE HCL 1 MG/ML INJ IV PRN ×4 (04:15→19:05)
[2023-07-10] MEDS: Ringers Lactate 1,000 ML IV SCH ×4 (04:18→19:05)
[2023-07-10] MEDS: INSULIN -REGULAR HUMAN 50 UNIT/0.5 ML ML SQ SCH ×5 (06:00→23:34)
[2023-07-10 06:54] LABS: Absolute Lymphocytes (CBC) 0.9 K/uL (0.7-4.9); Hematocrit 38.2 % (39.6-49.0); Lymphocytes % 5.6 % (15.3-44.8); MCV 88.4 fL (80-100); MPV 8.8 fL (7.6-11.3); Platelets 136 thou/uL (152-406); RBC Red Blood Cell Count 4.32 M/uL (4.33-5.43)
[2023-07-10 07:15] LABS: Albumin 2.9 g/dL (3.4-5.0); Bilirubin Total 1.3 mg/dL (0.2-1.0); Potassium 3.6 mEq/L (3.5-5.1); Protein, Total 6.3 g/dL (6.4-8.2)
[2023-07-10] MEDS: ENOXAPARIN 40 MG/0.4 ML SQ SCH (09:40)
--- NOTE | 2023-07-10 10:36 | P.PN ---
Subjective Date of Service: 07/10/23 Chief Complaint: Acute pancreatitis Patient states that he has no appetite still complaining of abdominal pain Review of Systems General: Weakness Gastrointestinal: Abdominal Pain Physical Examination - Vital Signs Temperature: 98.3 F Blood Pressure: 160/78 Pulse: 83 Respirations: 16 Pulse Ox (%): 92 - Physical Exam General: Alert, Oriented x3, Mild distress Respiratory: Clear to auscultation bilaterally Cardiovascular: No edema, Regular rate/rhythm Gastrointestinal: Normal bowel sounds, Tenderness (Generalized mid abdominal tenderness no rebound) Assessment And Plan - Current Problems (Diagnosis) (1) Pancreatitis Current Visit: Yes Status: Acute Plan: Patient is 72 years of age admitted with acute pancreatitis his lipase has decreased significantly still continues to complain of abdominal pain continue with a soft diet for now MRCP is pending consult GI White count is elevated Qualifiers: Chronicity: acute Pancreatitis type: idiopathic (2) Hypertension Current Visit: Yes Status: Acute Plan: Resume home medication
[2023-07-10] MEDS: lisinopriL 5 MG TAB PO SCH (11:01)
[2023-07-10] MEDS: PANTOPRAZOLE 40MG TABLET PO SCH (11:02)
[2023-07-11] MEDS: Ringers Lactate 1,000 ML IV SCH ×5 (01:29→22:47)
[2023-07-11] MEDS: HYDROMORPHONE HCL 1 MG/ML INJ IV PRN ×5 (01:30→22:47)
[2023-07-11] MEDS: INSULIN -REGULAR HUMAN 50 UNIT/0.5 ML ML SQ SCH ×3 (06:00→18:00)
[2023-07-11 07:02] LABS: Absolute Lymphocytes (CBC) 1.7 K/uL (0.7-4.9); Lymphocytes % 11.3 % (15.3-44.8); MCV 88.8 fL (80-100); MPV 8.8 fL (7.6-11.3); Platelets 183 thou/uL (152-406); RBC Red Blood Cell Count 4.72 M/uL (4.33-5.43)
[2023-07-11 07:09] LABS: Albumin 3.2 g/dL (3.4-5.0); Bilirubin Total 1.5 mg/dL (0.2-1.0); Potassium 3.6 mEq/L (3.5-5.1); Protein, Total 7.5 g/dL (6.4-8.2)
--- NOTE | 2023-07-11 07:27 | P.PN ---
Date of Service: 07/11/23 Subjective: after diet was advanced on 07/09 patient started to feel worse noted to be eating and drinking more yesterday - feels that what contributed/exacerbated his symptoms as day has gone on today, feels improvement no nausea/vomiting ROS: 10 point ROS as noted above, otherwise negative Physical Exam: GEN: Alert, oriented, NAD HEENT: Normal conjunctiva, sclera anicteric CV: Regular rate and rhythm, no edema Pulm: Nonlabored respirations on room air ABD: Soft, Moderate epigastric tenderness, nondistended Neuro: Normal speech, normal affect vitals reviewed Problem List: Acute pancreatitis 4cm multiloculated cystic mass NIDDM2 Hypertension Acute pancreatitis 4cm multiloculated cystic mass CT abdomen (07/08): stable peripancreatic fat stranding extending from the proximal body to the tail, with intrapancreatic 3.1 cm cyst GI consulted - Dr. Cheatham MRCP (07/11): 4cm multiloculated cystic mass within the pancreatic tail probably a cystic pancreatic neoplasm; +Peripancreatic stranding indicative of pancreatitis check total immunoglobulins for autoimmune pancreatitis and CA19-9 and CEA continue IV fluids PRN pain medication, antiemetics continue protonix afebrile, leukocytosis improving, lipase improving pain slightly better later today if worsening pain, to consider transfer to [facility] for pancreatic surgeon eval no evidence of obstruction. cystic mass in tail of pancreas NIDDM2 Every 6 hours Accu-Chek, SSI. A1c: 7.6 Hypertension continue home lisinopril IV hydralazine PRN VTE: Lovenox Code: Full Dispo: Home, 2 days
[2023-07-11] MEDS: ENOXAPARIN 40 MG/0.4 ML SQ SCH (08:26)
[2023-07-11] MEDS: PANTOPRAZOLE 40MG TABLET PO SCH (08:27)
[2023-07-11] MEDS: lisinopriL 5 MG TAB PO SCH (08:27)
--- NOTE | 2023-07-11 09:06 | RAD REPORT ---
EXAM DESCRIPTION: [id number]/2/2023 8:57 am CLINICAL HISTORY: Abdominal pain COMPARISON: July 08, 2023 CT TECHNIQUE: Magnetic resonance cholangiogram was performed.3D MIP reconstruction performed. Additiona l axial and coronal magnetic resonance imaging of abdomen obtained. FINDINGS: Cholecystectomy. The biliary tree is normal caliber without a filling defect. 4 centimeter multilobulated cystic mass is present within the pancreatic tail. Peripancreatic stranding is present. 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
--- NOTE | 2023-07-11 10:39 | CON ---
Addendum: MRCP shows a 4 cm cystic mass in the body tail of the pancreas, highly suggestive of neopl astic process. Discussed with Dr. Rice transfers to a tertiary center for definitive the rapy. The patient will likely need surgery. We will also check total immunoglobulins for possible a utoimmune pancreatitis and CA19-9 and CEA. FELICIA/ROCK Voice ID: [id number] Report ID: [id number]
--- NOTE | 2023-07-11 11:30 | CON ---
Date of Consultation: 07/11/2023 Reason For Consultation: Recurrent pancreatitis with sepsis. History Of Present Illness: The patient is a 72-year-old male with history of diabetes, hyp ertension, and recurrent pancreatitis. The patient states that he had his gallbladder taken out in 2 022 at [facility] by female Dr. England. He reports since that time he has had recurrent pancreatitis. He n otes left upper quadrant pain, maximum 9/10, currently 6/10. Lipase is elevated at 4841 on admission , now down to 45, but the patient is still having 6/10 pain even though his lipase is normal. AST no rmal at 15, ALT 20, alkaline phosphatase 59, total protein 7.5, albumin 3.2, albumin normal. White c ount is elevated on admission 12.1 up to 16.1 yesterday, down to 14.6 today with 81% polys. UA was n egative except for 4+ glucose and 2+ ketones. CT with IV contrast revealed stable peripancreatic fat stranding in the proximal body to the tail with a 3.1 cm stable intrapancreatic cyst. Incidental fi ndings may relate to acute on chronic pancreatitis or autoimmune pancreatitis or other. Past Medical History: Significant for diabetes, hypertension, recurrent pancreatitis, laparoscopic c holecystectomy last year at [facility]. Social History: , 3 children. No tobacco. No alcohol. Quit alcohol 4 years ago. Reports father of pulmonary embolism. Mother of complications from diabetes. Review of Systems: The patient has left upper quadrant pain with nausea, vomiting, fevers, chills. No night sweats. No change in bowel habits, diarrhea, constipation, muscle aches, joint aches, backaches, melena, hemato chezia, hematemesis, coffee-grounds emesis, hematuria, dysuria, polyuria, polydipsia. No depression or anxiety. Physical Examination: Vital Signs: He is 5 feet 4 inches, 156 pounds, BMI of 26.8 kg/sq m. Temperature 99.5 degrees Fahre nheit, pulse 92, respirations 22, blood pressure 134/52, O2 saturation 94%. HEENT: Normocephalic, atraumatic. Anicteric. Pupils equal, round, and reactive to light. Extraocu lar movements are intact. Oropharynx is clear. Neck: Supple. No masses. Respirations: Clear to auscultation bilaterally. Cardiac: Regular rate and rhythm. No gallops or rubs. Abdomen: Positive bowel sounds. Soft, nondistended. Pain in the left upper quadrant area. No lara toneal or Dunn sign. No rebound. Extremities: No clubbing, cyanosis, or edema. 2+ pulses. Neuro: Alert and oriented x3. Grossly nonfocal. 5/5 motor strength. Sensation intact to light karoline ch. Laboratory Data: The patient has a white count on admission of 12.1 up to 16.1 yesterday, down to 14 .6 today, hemoglobin of 14.6, hematocrit of 42, MCV of 89, platelet count of 183, polys of 82%, lymph ocytes 11%, monocytes 7%. Sodium 133, potassium 3.6, chloride 102, bicarb 25, BUN of 6, creatinine o f 0.87, glucose 150, calcium 9.1, total bilirubin 1.5, AST of 15, ALT of 20, alkaline phosphatase 59, total protein 7.5, albumin 3.2, lipase 45. Lipase on admission was 4841 185 and today it is down to 45. UA revealed 4+ glucose, 2+ ketones, otherwise negative. UA revealed 2+ g lucose and trace protein. CT abdomen and pelvis revealed pancreatitis, peripancreatic fat stranding stable from the proximal body to tail from prior study, a 3.1 cm cyst in the body tail of the pancreas. Chest x-ray was unremarkable. No acute findings on chest x-ray. Impression: 1.Recurrent pancreatitis since laparoscopic cholecystectomy last year at [facility] in [place]. On admis fan, the patient has a lipase of 4841, decreasing to 1106 and then 185 and down to 45. AST, ALT nor mal at 15 and 20, alkaline phosphatase normal at 59, total bilirubin normal at 1.5. CT reveals pancr eatitis in the proximal body to tail somewhat stable from last study with a 3.1 cm cyst in the body a nd tail of the pancreas. Needs to investigate with MRCP, which has been ordered. May have other dis orders as well such as familial pancreatitis or other. 2.Elevated white count from today with 81% polys. UA reviewed and was negative except fo r 4+ glucose and 2+ ketones. Therefore, elevation in white count probably from pancreatitis. 3.History of diabetes, hypertension, recurrent pancreatitis, and laparoscopic cholecystectomy in 2 at [facility]. Recommendations: 1.Await MRCP. 2.Continue IV fluids. 3.Keep the patient n.p.o. 4.Continue p.r.n. pain medications and antiemetics. 5.Consider an ERCP. Thank you Dr. Rice. FELICIA/ROCK Voice ID: [id number] Report ID: [id number]
[2023-07-12 03:14] LABS: Absolute Lymphocytes (CBC) 1.2 K/uL (0.7-4.9); Hematocrit 34.8 % (39.6-49.0); MCV 87.3 fL (80-100); MPV 8.8 fL (7.6-11.3); Platelets 147 thou/uL (152-406); RBC Red Blood Cell Count 3.98 M/uL (4.33-5.43)
[2023-07-12 03:21] LABS: Albumin 2.5 g/dL (3.4-5.0); Bilirubin Total 0.9 mg/dL (0.2-1.0); Potassium 3.3 mEq/L (3.5-5.1); Protein, Total 6.2 g/dL (6.4-8.2)
[2023-07-12] MEDS: HYDROMORPHONE HCL 1 MG/ML INJ IV PRN ×5 (04:36→21:47)
[2023-07-12] MEDS: Ringers Lactate 1,000 ML IV SCH ×4 (04:41→23:57)
[2023-07-12] MEDS: INSULIN -REGULAR HUMAN 50 UNIT/0.5 ML ML SQ SCH ×4 (06:00→17:36)
[2023-07-12] MEDS: ENOXAPARIN 40 MG/0.4 ML SQ SCH (08:37)
[2023-07-12] MEDS: PANTOPRAZOLE 40MG TABLET PO SCH (08:37)
[2023-07-12] MEDS: lisinopriL 5 MG TAB PO SCH (08:37)
--- NOTE | 2023-07-12 12:14 | P.PN ---
Subjective Date of Service: 07/12/23 Chief Complaint: Acute recurrent pancreatitis Subjective: New changes (Pain improved some but still present with normal lipase. MRCP revealed a 4 cm cystic mass in the tail of the pancreas that appears to be neoplastic.) Review of Systems 10-point ROS is otherwise unremarkable Gastrointestinal: Abdominal Pain (Slowly improving) Physical Examination - Vital Signs Temperature: 98.6 F Blood Pressure: 161/72 Pulse: 74 Respirations: 18 Pulse Ox (%): 94 - Physical Exam General: Alert, Oriented x3, Cooperative, Mild distress (abdominal pain) Neck: Supple Respiratory: Normal air movement Cardiovascular: Regular rate/rhythm Gastrointestinal: No rebound, Tenderness, Guarding (Mild) Neurological: Normal speech, Normal strength at 5/5 x4 extr Assessment And Plan - Current Problems (Diagnosis) (1) Recurrent acute pancreatitis Current Visit: Yes Status: Acute (2) Epigastric abdominal pain Current Visit: Yes Status: Acute (3) LUQ abdominal pain Current Visit: Yes Status: Acute (4) Abnormal magnetic resonance cholangiopancreatography (MRCP) Current Visit: Yes Status: Acute (5) Cystic mass of pancreas Current Visit: Yes Status: Acute Comment: Probable cause of recurrent pancreatitis - Plan REC: 1) transfer to tertiary center for cystic pancreatic mass likely causing pancreatitis and continued pain with normal lipase 2) prn pain medications 3) IVFs 4) CLs
--- NOTE | 2023-07-12 18:21 | P.PN ---
Subjective Date of Service: 07/12/23 Chief Complaint: Acute recurrent pancreatitis Patient states that his abdominal pain is much better today. He has tolerated clear liquid diet. Lipase level has normalized. Physical Examination - Vital Signs Temperature: 98.2 F Blood Pressure: 129/61 Pulse: 73 Respirations: 17 Pulse Ox (%): 94 Assessment And Plan - Plan Physical Exam: GEN: Alert, oriented, NAD HEENT: Normal conjunctiva, sclera anicteric CV: Regular rate and rhythm, no edema Pulm: Clear to auscultation bilaterally. ABD: Soft, moderate tenderness on deep palpation, nondistended Neuro: Normal speech, normal affect vitals reviewed Problem List: Acute pancreatitis 4cm multiloculated cystic mass NIDDM2 Hypertension Acute pancreatitis 4cm multiloculated cystic mass CT abdomen (07/08): stable peripancreatic fat stranding extending from the proximal body to the tail, with intrapancreatic 3.1 cm cyst GI consulted - Dr. Cheatham MRCP (07/11): 4cm multiloculated cystic mass within the pancreatic tail probably a cystic pancreatic neoplasm; +Peripancreatic stranding indicative of pancreatitis Total immunoglobulins for autoimmune pancreatitis and CA19-9 and CEA ordered continue IV fluids PRN pain medication, antiemetics continue protonix afebrile, lipase level normalized Advance to full liquid diet as tolerated. GI Dr. Cheatham input appreciated. Transfer to [facility] recommended by Dr. Cheatham. Transfer initiated NIDDM2 Every 6 hours Accu-Chek, SSI. A1c: 7.6 Hypertension continue home lisinopril IV hydralazine PRN VTE: Lovenox Code: Full
[2023-07-13] MEDS: HYDROMORPHONE HCL 1 MG/ML INJ IV PRN ×3 (03:11→12:53)
[2023-07-13] MEDS: INSULIN -REGULAR HUMAN 50 UNIT/0.5 ML ML SQ SCH ×3 (06:00→12:00)
[2023-07-13] MEDS: Ringers Lactate 1,000 ML IV SCH ×2 (06:24→12:53)
[2023-07-13] MEDS: ENOXAPARIN 40 MG/0.4 ML SQ SCH (07:57)
[2023-07-13] MEDS: lisinopriL 5 MG TAB PO SCH (07:58)
[2023-07-13] MEDS: PANTOPRAZOLE 40MG TABLET PO SCH (07:59)
[2023-07-13 09:59] VITALS: O2SAT 94
[2023-07-13] MEDS: HYDRALAZINE HCL 20 MG/ML VIAL IV PRN (12:04)
[2023-07-13 13:10] VITALS: BP 162/72; TEMP 97.4
--- NOTE | 2023-07-13 16:49 | P.DS ---
Admission Date: 07/08/23 Discharge Date: 07/13/23 Reason for Admission: Acute recurrent pancreatitis Brief History of Present Illness: 72-year-old male with history of [id number] diabetes, hypertension, pancreatitis presented to the emergency department for epigastric pain. He has a history of multiple episodes of pancreatitis in the past, approximately 4 total, last episode was a few months ago. He has previously had a cholecystectomy, he is not a drinker. He was evaluated in the emergency department his labs were significant for white blood cell count 12.1, creatinine 1.34, GFR 57, glucose 289, lipase 4841. Lipid panel including triglyceride levels were normal. CT abdomen pelvis with IV contrast was performed which revealed stable peripancreatic fat stranding extending from the proximal body to the tail, with likely stable intrapancreatic 3.1 cm cyst. Findings may relate to acute on chronic pancreatitis, although other etiologies including autoimmune pancreatitis with adjacent scarring remain on the list of differential considerations. Patient given IV fluids and pain medications in the ED and admitted for further management. Hospital Course: Diagnosis: Acute pancreatitis 4cm multiloculated cystic mass NIDDM2 Hypertension Acute pancreatitis 4cm multiloculated cystic mass CT abdomen (07/08): stable peripancreatic fat stranding extending from the proximal body to the tail, with intrapancreatic 3.1 cm cyst GI consulted - Dr. Cheatham MRCP (07/11): 4cm multiloculated cystic mass within the pancreatic tail probably a cystic pancreatic neoplasm; +Peripancreatic stranding indicative of pancreatitis Total immunoglobulins for autoimmune pancreatitis and CA19-9 and CEA ordered Patient treated with IV fluid and pain medications as needed He was also placed on Protonix Lipase level monitored improved to normal level. Patient started on clear liquid diet and advance to full liquid which she tolerated. Patient seen by GI Dr. Cheatham who recommend transfer to [facility]. Transfer initiated, patient accepted for transfer. Hypertension continues home lisinopril Vital Signs/Physical Exam: Temp Pulse Resp BP Pulse Ox 97.4 F 72 18 162/72 H 95 07/13/23 12:00 07/13/23 12:00 07/13/23 13:23 07/13/23 12:00 07/13/23 13:23 General: Alert, In no apparent distress, Oriented x3 HEENT: Mucous membr. moist/pink Neck: JVD not distended Respiratory: Clear to auscultation bilaterally, Normal air movement Cardiovascular: No edema, Regular rate/rhythm, Normal S1 S2 Gastrointestinal: Soft and benign, Non-distended, Other (Mild epigastric tenderness) Musculoskeletal: No swelling Integumentary: No rashes Neurological: Normal strength at 5/5 x4 extr Laboratory Data at Discharge: WBC 8.10 thou/uL (4.3-10.9) 07/12/23 02:20 Hgb 12.4 g/dL (13.6-17.9) L D 07/12/23 02:20 Hct 34.8 % (39.6-49.0) L 07/12/23 02:20 Plt Count 147 thou/uL (152-406) L 07/12/23 02:20 Sodium 137 mEq/L (136-145) D 07/12/23 02:20 Potassium 3.3 mEq/L (3.5-5.1) L 07/12/23 02:20 BUN 7 mg/dL (7-18) 07/12/23 02:20 Creatinine 0.69 mg/dL (0.70-1.30) L 07/12/23 02:20 Glucose 120 mg/dL (74-106) H 07/12/23 02:20 Magnesium 1.8 mg/dL (1.6-2.4) 07/08/23 17:09 Total Bilirubin 0.9 mg/dL (0.2-1.0) 07/12/23 02:20 AST 13 U/L (15-37) L 07/12/23 02:20 ALT 22 U/L (16-61) 07/12/23 02:20 Alkaline Phosphatase 47 U/L (45-117) D 07/12/23 02:20 Triglycerides 146 mg/dL (<150) 07/08/23 17:09 Cholesterol 169 mg/dL (<200) 07/08/23 17:09 HDL Cholesterol 52 mg/dL (40-60) 07/08/23 17:09 Cholesterol/HDL Ratio 3.25 07/08/23 17:09 Lipase 32 U/L (13-75) 07/12/23 02:20 Home Medications: Lisinopril [Zestril] 2.5 mg PO DAILY 07/08/23 Metformin ER [Glucophage ER*] 500 mg PO DAILY 07/08/23 Esomeprazole Magnesium [Nexium] 20 mg PO DAILY 07/09/23 Followup: NONE,NONE [Primary Care Provider] - Time spent managing pt's care (in minutes): 32
== END 2023-07-13 16:05 | disposition short-term general hospital (02) | DRG 439 ==
LOC: ER 16:05 → ERHOLD 18:45 → 4TH 19:50
PROVIDERS: ADMIT Internal Medicine Sleep Medicine; ATTEND Internal Medicine
DX: K85.00 Idiopathic acute pancreatitis without necrosis or infection (principal); K86.2 Cyst of pancreas; I10 Essential (primary) hypertension; E11.9 Type 2 diabetes mellitus without complications; Z79.4 Long term (current) use of insulin; Z88.0 Allergy status to penicillin; Z63.5 Disruption of family by separation and divorce; Z79.84 Long term (current) use of oral hypoglycemic drugs; Z90.49 Acquired absence of other specified parts of digestive tract; Z87.891 Personal history of nicotine dependence; Z79.899 Other long term (current) drug therapy
CPT/HCPCS: 36415; 71045; 74176; 74181; 76377; 80053; 80061; 81001; 81003; 82378; 82947; 83036; 83605; 83690; 83735; 85025; 86301; 87040; 96361; 96374; 96375; 99285; J0360; J1170; J1650; J1815; J2405; J7030; J7050; J7120